=== PATIENT | female | born 1985 | race Caucasian/White ===

== ENCOUNTER → 2020-08-23 14:55 | Outpatient (BNVA) | payer OTHER, SELFPAY | PROVIDERS: PCP Physician Assistant; Visit Provider Surgery Vascular Surgery | DX: I65.22 Occlusion and stenosis of left carotid artery (principal) | CPT/HCPCS: 99202 ==

== ENCOUNTER 2020-09-06 12:05 | Outpatient (REF) | payer OTHER, SELFPAY ==
--- NOTE | ~2020-09-06 | US_ITS ---
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 COMPARISON: None TECHNIQUE: Real-time ultrasound and Doppler techniques (integrating B-mode 2-D vascular images, Doppler spectral analysis and color-flow Doppler imaging) were utilized to interrogate the extracranial carotid arteries, the vertebral arteries and proximal subclavian arteries bilaterally. The degree of stenosis is determined by criteria similar to NASCET. FINDINGS: Right Side: 1. There is no atherosclerotic plaque seen in the bifurcation/proximal ICA region. 2. The common carotid artery PSV proximally is 124 cm/s and distally 80 cm/s. 3. The proximal internal carotid artery velocities are 75 cm/s systolic and 81 cm/s diastolic. 4. The proximal external carotid artery PSV is 106 cm/s. 5. The vertebral artery shows antegrade flow. 6. The subclavian artery waveforms are normal. Left Side: 1. There is no atherosclerotic plaque seen in the bifurcation/proximal ICA region. 2. The common carotid artery PSV proximally is 125 cm/s and distally 89 cm/s. 3. The proximal internal carotid artery velocities are 102 cm/s systolic and 83 cm/s diastolic. 4. The proximal external carotid artery PSV is 92 cm/s. 5. The vertebral artery shows antegrade flow. 6. The subclavian artery waveforms are normal. US/US carotid duplex BI IMPRESSION: 1. RIGHT: Normal right internal carotid artery without atherosclerotic plaque or hemodynamically significant stenosis. 2. LEFT: Normal left internal carotid artery without atherosclerotic plaque or hemodynamically significant stenosis.
--- NOTE | ~2020-09-06 | US_ITS ---
EXAMINATION: US THYROID CLINICAL INFORMATION: Hypothyroidism. COMPARISON: Ultrasound thyroid soft tissues 05/02/2010. TECHNIQUE: Linear transducer grayscale and color Doppler examination with attention to the region of the thyroid. FINDINGS: SIZE: Measurements of the thyroid lobes and nodules are given in sagittal, anteroposterior and transverse dimensions respectively. Right Thyroid Lobe: 3.7 x 1.8 x 1.8 cm, volume 6.3 mL. Previously 3.9 x 2.3 x 1.5 cm, volume 7.0 mL. Parenchyma: The gland echotexture is heterogeneous. Thyroid vascularity is normal. Left Thyroid Lobe: 5.0 x 2.1 x 2.1 cm, volume 11.5 mL. Previously 4.6 x 2.3 x 1.8 cm, volume 10.0 mL. Parenchyma: The gland echotexture is heterogeneous. Thyroid vascularity is normal. Isthmus: 0.5 cm in maximum AP dimension. Previously 0.6 cm. NODES: No lymphadenopathy is seen in the tissue surrounding the thyroid gland. US/US thyroid IMPRESSION: Diffusely heterogeneous thyroid texture which might be a sequela of prior thyroiditis. No ultrasound evidence of focal thyroid nodule.. ACR TI-RADS RECOMMENDATIONS: Ultrasound-guided fine-needle aspiration, followup ultrasound, no further follow up. * TR1 (0 point) and TR 2 (2 points): No FNA or follow up * TR3 (3 points): FNA if more than or equal to 2.5 cm in maximum dimension, follow up in 1, 3 and 5 years if 1.5 to 2.4 cm in maximum dimension. * TR4 (4-6 points): FNA if more than or equal to 1.5 cm in maximum dimension, follow up in 1, 2, 3 and 5 years if 1 to 1.4 cm in maximum dimension. * TR5 (more than or equal to 7 points): FNA if more than or equal to 1 cm in maximum dimension, follow up every year for 5 years if 0.5 to 0.9 cm in maximum dimension. * TR3, TR4 or TR5 nodules that are below the size threshold for follow up receive no follow up.
== END 2020-09-06 12:06 | disposition home or self-care (01) ==
LOC: HO.US 12:05
PROVIDERS: Visit Provider Physician Assistant
DX: I65.22 Occlusion and stenosis of left carotid artery (principal); R09.89 Other specified symptoms and signs involving the circulatory and respiratory systems; E01.0 Iodine-deficiency related diffuse (endemic) goiter
CPT/HCPCS: 76536; 93880

== ENCOUNTER → 2020-09-08 15:16 | Outpatient (BNVA) | payer OTHER, SELFPAY | PROVIDERS: PCP Internal Medicine; Visit Provider Surgery Vascular Surgery ==

== ENCOUNTER 2020-09-14 10:21 | Outpatient (REF) | payer OTHER, SELFPAY ==
[2020-09-14 11:20] LABS: Hematocrit 31.2 % (37-47); Hemoglobin 9.2 g/dl (12.0-16.0); Mean Corpuscular HGB Conc 29.5 g/dl (31.0-35.0); Mean Corpuscular Hemoglobin 22.7 pg (27.0-33.0); Mean Platelet Volume 10.5 fL (9.4-12.3); Platelet Count 415 X10*3/uL (160-400); Red Blood Count 4.05 X10*6/uL (4.20-5.50); White Blood Count 11.2 X10*3/uL (4.8-10.8)
[2020-09-14 11:30] LABS: Alanine Aminotransferase 46 U/L (0-31); Albumin Level 4.2 g/dL (3.5-5.0); Alkaline Phosphatase 79 U/L (39-117); Anion Gap 11 (12-20); Aspartate Amino Transferase 23 U/L (5-31); Bilirubin Total 0.5 mg/dL (0.0-1.0); Blood Urea Nitrogen 12 mg/dL (9-16); Calcium 9.3 mg/dL (8.4-10.2); Carbon Dioxide 27 mmol/L (22-29); Chloride 102 mmol/L (96-108); Cholesterol 109 mg/dL; Estimated Glomerular Filt Rate > 60; Glucose Fasting 110 mg/dL (60-99); HDL Cholesterol 33 mg/dL; LDL Cholesterol Calculated 59 mg/dl; Potassium 4.6 mmol/L (3.3-5.1); Sodium 135 mmol/L (135-145); Total Protein 7.4 g/dL (6.5-8.0); Triglycerides 89 mg/dL
[2020-09-14 11:43] LABS: TSH reflex Free T4 1.04 uIU/mL (0.32-4.0)
[2020-09-14 12:18] LABS: Estimated Average Glucose 120 mg/dL; Hemoglobin A1c % 5.8 %
== END 2020-09-14 10:22 | disposition home or self-care (01) ==
LOC: HO.LAB 10:21
PROVIDERS: PCP Physician Assistant; Visit Provider Physician Assistant
DX: E03.9 Hypothyroidism, unspecified (principal); I10 Essential (primary) hypertension; E66.01 Morbid (severe) obesity due to excess calories; Z68.41 Body mass index [BMI] 40.0-44.9, adult
CPT/HCPCS: 36415; 80053; 80061; 83036; 84443; 85027

== ENCOUNTER 2020-09-21 15:29 | Outpatient (REF) | payer OTHER, SELFPAY ==
[2020-09-21 16:22] LABS: Immature Retic Fraction 20.9 % (3.0-15.9); Retic HGB Equivalent 21.3 pg (30.0-35.0); Reticulocyte Percent 1.9 % (0.5-1.8); Reticulocytes Absolute 0.073 X10*6/uL (0.026-0.095)
[2020-09-21 16:49] LABS: Iron 19 mcg/dL (30-160); Lactate Dehydrogenase 159 U/L (122-220); Percent Iron Saturation 6 % (15-50); Total Iron Binding Capacity 321 mcg/dL (228-428); Unsaturated Iron Binding 302 ug/dL
[2020-09-21 17:11] LABS: Ferritin 19 ng/mL (10-122)
== END 2020-09-21 15:30 | disposition home or self-care (01) ==
LOC: HO.LAB 15:29
PROVIDERS: PCP Physician Assistant; Visit Provider Physician Assistant
DX: D50.9 Iron deficiency anemia, unspecified (principal)
CPT/HCPCS: 36415; 82728; 83540; 83615; 85045

== ENCOUNTER 2021-03-23 15:22 | Emergency (ER) | payer OTHER, MEDICAID, SELFPAY ==
--- NOTE | 2021-03-23 | ECG_ITS ---
Test Reason : CHEST PAIN Blood Pressure : / mmHG Vent. Rate : 070 BPM Atrial Rate : 070 BPM P-R Int : 148 ms QRS Dur : 084 ms QT Int : 388 ms P-R-T Axes : 030 023 010 degrees QTc Int : 419 ms Normal sinus rhythm with sinus arrhythmia Cannot rule out Anterior infarct (cited on or before 23-MAR-2021) Abnormal ECG When compared with ECG of 24-OCT-2016 18:50, Nonspecific T wave abnormality, improved in Lateral leads Referred By: Generic ED Physician Electronically Signed By:ALEX LEVIN
--- NOTE | ~2021-03-23 | XR_ITS ---
EXAMINATION: XR CHEST CLINICAL INFORMATION: Chest pain COMPARISON: Previous chest x-ray September 2016 TECHNIQUE: 2 views of the chest were obtained. FINDINGS: No significant abnormality is noted involving the heart, lungs, mediastinum, bony thorax or soft tissues. XR/XR chest 2V IMPRESSION: Unremarkable examination.
[2021-03-23 15:36] VITALS: BP 111/54; PULSE 73; RESP 16; TEMP 37.2; O2SAT 98; BMI 36.7
--- NOTE | 2021-03-23 17:37 | ED_ITS ---
HPI - Chest Pain General Chief Complaint: Chest Pain Stated Complaint: chest pain Time Seen by Provider: 03/23/21 17:30 Source: patient Mode of arrival: ambulatory History of Present Illness HPI narrative: 35-year-old female with no significant past medical history presenting to the ED complaining of substernal chest pain described as sharp, intermittent x3 days with associated tingling down LUE. Denies fever, chills, cough, LE edema, recent travel, sick contacts, SOB MD complaint: chest pain Related Data Home Medications Medication Instructions Recorded Confirmed aspirin 81 mg tablet,delayed 81 mg PO DAILY 09/07/20 12/23/20 release (Adult Low Dose Aspirin) Previous Rx's Medication Instructions Recorded simvastatin 10 mg tablet 10 mg PO DAILY 90 Days #90 tab 08/10/20 omeprazole 20 mg capsule,delayed 20 mg PO DAILY #30 cap 11/19/20 release doxycycline hyclate 100 mg tablet 100 mg PO BID #14 tab 12/23/20 ferrous sulfate 325 mg (65 mg 325 mg PO DAILY #30 tab 02/23/21 iron) tablet levothyroxine 175 mcg tablet 175 mcg PO DAILY #30 tab 02/23/21 Allergies Allergy/AdvReac Type Severity Reaction Status Date / Time oxycodone [OxyContin] AdvReac Unknown itchiness Verified 12/23/20 12:02 Review of Systems Review of Systems: Constitutional: No Fever, No Chills, No Fatigue, No Malaise ENT/Mouth: No Ear Pain, No Nasal Congestion, No sore throat Eyes: No Eye Pain, No Swelling, No Vision Changes Cardiovascular: + Chest Pain, No SOB, No Dyspnea on Exertion, No Edema, No Palpitations Respiratory: No Cough, No Dyspnea Gastrointestinal: No Nausea, No Vomiting, No Diarrhea, No Constipation, No Abdominal pain Genitourinary: No Dysuria, No Urinary Frequency, No Hematuria Musculoskeletal: No joint pain, No Myalgias, No Joint Swelling Skin: No Skin Lesions, No rash Neuro: No Weakness, No Numbness, + Paresthesias,No Dizziness, No Headache Yes all other systems are reviewed and are negative [facility] Past Medical History Attestation statement: The following information was validated with the patient. Surgical History History of appendectomy S/P LASIK surgery Family History Family History Father Medical history unknown Mother Hypertension Hyperlipidemia Thyroid disease Sister Hypothyroid Family/Other Diabetes Social History Social History Advance Directives: No Advance Directives Information Provided: No Physical Exam Vital Signs: Vital Signs: Last Vital Signs Temp 99 F 03/23/21 15:36 Pulse 73 03/23/21 15:36 Resp 16 03/23/21 15:36 BP 111/54 L 03/23/21 15:36 Pulse Ox 98 03/23/21 15:36 Body Mass Index 36.7 Const: General: cooperative, healthy appearing and no acute distress Orientation/consciousness: patient oriented x3 Limitations: no limitations HENMT: Head: Yes normal to inspection Ears: hearing grossly normal bilaterally General nose exam: Normal external nose present Face and sinus: Yes normal facial exam Eyes: General: appearance normal, both eyes and all related structures EOM: EOMs intact bilaterally Neck: Neck: Yes normal visual inspection Chest: Other: Tenderness to palpation of chest wall reproducing subjective complaint Chest palpation & inspection: normal inspection of the chest, no crepitus and tenderness Resp: Effort & Inspection: normal respiratory effort Auscultation: clear to auscultation bilaterally, no rales, no rhonchi and no wheezes Cardio: Rate: regular rate Heart sounds: S1 normal heart sound present and S2 normal heart sound present GI: Inspection: Yes normal to inspection Palpation (GI): Soft to palpation, nontender, no guarding and not rigid Skin: Rashes: no rashes Wounds: no wounds Neuro: General: patient oriented x3 Gait exam (Neuro): Normal gait present Extrem: General: Yes normal to inspection, Yes no pedal edema and Yes no calf tenderness Course Course Course Narrative: -mild leukocytosis of 13.2. H&H at patient's baseline, labs otherwise unremarkable including troponin XR chest 2V IMPRESSION: Unremarkable examination. > results discussed with patient including worrisome signs and symptoms and strict return precautions. She verbalized understanding feel safe for discharge home MDM - Chest Pain MDM Narrative Medical decision making narrative: 35-year-old female with no significant past medical history presenting to the ED complaining of substernal chest pain described as sharp, intermittent x3 days with associated tingling down LUE. On exam VSS, NAD/well-appearing, physical exam as above, chest pain reproducible on exam. Rule out ACS although symptoms atypical. Low concern for PE/CHF. Rule out pneumonia. Plan: EKG, labs, CXR, COVID-19 testing, reassess Medical Records Data Attestation: I reviewed the patient's medical records. Lab Data Attestation: I reviewed the patient's lab results. Result diagrams: 03/23/21 18:21 03/23/21 18:21 Labs: Lab Results 03/23/21 03/23/21 03/23/21 Range/Units 18:21 18:21 18:21 WBC 13.2 H (4.8-10.8) X10*3/uL RBC 4.07 L (4.20-5.50) X10*6/uL Hgb 10.8 L (12.0-16.0) g/dl Hct 33.7 L (37-47) % MCV 82.8 (80-98) fL MCH 26.5 L (27.0-33.0) pg MCHC 32.0 (31.0-35.0) g/dl RDW 16.1 H (11.0-16.0) % Plt Count 355 (160-400) X10*3/uL MPV 11.1 (9.4-12.3) fL Immature Gran % (Auto) 0.3 (0.0-0.4) % Neut % (Auto) 70.9 (45-73) % Lymph % (Auto) 21.7 (20-40) % [place] % (Auto) 5.4 (2-11) % Eos % (Auto) 1.3 (0-4) % Baso % (Auto) 0.4 (0-2) % Lymph # (Auto) 2.9 (1.2-4.9) X10*3/uL [place] # (Auto) 0.7 (0.1-1.2) X10*3/uL Eos # (Auto) 0.2 (0.0-0.4) X10*3/uL Baso # (Auto) 0.1 (0.0-0.2) X10*3/uL Abs Immat Gran (auto) 0.04 H (0.00-0.03) X10*3/uL Absolute Neuts (auto) 9.4 H (2.0-8.3) X10*3/uL Absolute Nucleated RBC 0.000 (0.0-0.012) X10*3/uL Nucleated RBC % (auto) 0.0 (0.0-0.2) /100WBC Sodium 137 (135-145) mmol/L Potassium 4.4 (3.3-5.1) mmol/L Chloride 105 (96-108) mmol/L Carbon Dioxide 25 (22-29) mmol/L Anion Gap 11 L (12-20) BUN 13 (9-16) mg/dL Creatinine 0.86 (0.5-1.4) mg/dL Estim Creat Clear Calc 95.9 Estimated GFR > 60 Random Glucose 104 (60-115) mg/dL Calcium 9.5 (8.4-10.2) mg/dL Magnesium 2.1 (1.6-2.6) mg/dL Total Bilirubin 0.2 (0.0-1.0) mg/dL Direct Bilirubin < 0.2 (0.0-0.5) mg/dL AST 18 (5-31) U/L ALT 28 (0-31) U/L Alkaline Phosphatase 92 (39-117) U/L Troponin I High Sens 3.5 (<3.5-17.0) ng/L Total Protein 7.7 (6.5-8.0) g/dL Albumin 4.3 (3.5-5.0) g/dL Lipase 11 (8-78) U/L COVID-19 ([facility]) (Negative) COVID-19 Clin Com 03/23/21 Range/Units 18:21 WBC (4.8-10.8) X10*3/uL RBC (4.20-5.50) X10*6/uL Hgb (12.0-16.0) g/dl Hct (37-47) % MCV (80-98) fL MCH (27.0-33.0) pg MCHC (31.0-35.0) g/dl RDW (11.0-16.0) % Plt Count (160-400) X10*3/uL MPV (9.4-12.3) fL Immature Gran % (Auto) (0.0-0.4) % Neut % (Auto) (45-73) % Lymph % (Auto) (20-40) % [place] % (Auto) (2-11) % Eos % (Auto) (0-4) % Baso % (Auto) (0-2) % Lymph # (Auto) (1.2-4.9) X10*3/uL [place] # (Auto) (0.1-1.2) X10*3/uL Eos # (Auto) (0.0-0.4) X10*3/uL Baso # (Auto) (0.0-0.2) X10*3/uL Abs Immat Gran (auto) (0.00-0.03) X10*3/uL Absolute Neuts (auto) (2.0-8.3) X10*3/uL Absolute Nucleated RBC (0.0-0.012) X10*3/uL Nucleated RBC % (auto) (0.0-0.2) /100WBC Sodium (135-145) mmol/L Potassium (3.3-5.1) mmol/L Chloride (96-108) mmol/L Carbon Dioxide (22-29) mmol/L Anion Gap (12-20) BUN (9-16) mg/dL Creatinine (0.5-1.4) mg/dL Estim Creat Clear Calc Estimated GFR Random Glucose (60-115) mg/dL Calcium (8.4-10.2) mg/dL Magnesium (1.6-2.6) mg/dL Total Bilirubin (0.0-1.0) mg/dL Direct Bilirubin (0.0-0.5) mg/dL AST (5-31) U/L ALT (0-31) U/L Alkaline Phosphatase (39-117) U/L Troponin I High Sens (<3.5-17.0) ng/L Total Protein (6.5-8.0) g/dL Albumin (3.5-5.0) g/dL Lipase (8-78) U/L COVID-19 ([facility]) Negative (Negative) COVID-19 Clin Com See Note ECG Data ECG #1: Interpretation: EKG normal sinus rhythm with a rate of 70. Nonischemic/no STEMI Discharge Plan Discharge Clinical Impression: Atypical chest pain Patient Disposition: Home, Self-Care Instructions: Chest Pain (ED) Additional Instructions: Your blood work and chest x-ray reviewed showing Follow-up with her primary care doctor and Cardiology as needed If her symptoms persist or worsen, become more constant or unbearable please return to the ED Prescriptions: No Action omeprazole 20 mg capsule,delayed release(DR/EC) 20 mg PO DAILY Qty: 30 RF: 2 ferrous sulfate 325 mg (65 mg iron) tablet 325 mg PO DAILY Qty: 30 RF: 1 levothyroxine 175 mcg tablet 175 mcg PO DAILY Qty: 30 RF: 3 doxycycline hyclate 100 mg tablet 100 mg PO BID Qty: 14 RF: 0 simvastatin 10 mg tablet 10 mg PO DAILY 90 Days Qty: 90 RF: 0 aspirin [Adult Low Dose Aspirin] 81 mg tablet,delayed release (DR/EC) 81 mg PO DAILY RF: 0 Referrals: Adiel Villanueva PA-C [Primary Care Provider] - 2 days Daniel Pugh MD [Physician] - 1 week
[2021-03-23] MEDS: 0.9 % Sodium Chloride 1,000 ML 999 ML IVCONT (18:23)
[2021-03-23 18:32] LABS: MANUAL DIFF FLAG NO
[2021-03-23 18:36] LABS: Basophils Absolute Auto 0.1 X10*3/uL (0.0-0.2); Basophils Percent Auto 0.4 % (0-2); Eosinophils Absolute Auto 0.2 X10*3/uL (0.0-0.4); Eosinophils Percent Auto 1.3 % (0-4); Hematocrit 33.7 % (37-47); Hemoglobin 10.8 g/dl (12.0-16.0); Imm Gran Abs Auto 0.04 X10*3/uL (0.00-0.03); Imm Gran Pct Auto 0.3 % (0.0-0.4); Lymphocytes Absolute Auto 2.9 X10*3/uL (1.2-4.9); Lymphocytes Percent Auto 21.7 % (20-40); Mean Corpuscular Hemoglobin 26.5 pg (27.0-33.0); Mean Corpuscular Volume 82.8 fL (80-98); Mean Platelet Volume 11.1 fL (9.4-12.3); Monocytes Absolute Auto 0.7 X10*3/uL (0.1-1.2); Monocytes Percent Auto 5.4 % (2-11); Neutrophils Absolute Auto 9.4 X10*3/uL (2.0-8.3); Neutrophils Percent Auto 70.9 % (45-73); Platelet Count 355 X10*3/uL (160-400); Red Blood Count 4.07 X10*6/uL (4.20-5.50); Red Cell Distribution Width 16.1 % (11.0-16.0); White Blood Count 13.2 X10*3/uL (4.8-10.8)
[2021-03-23 18:52] LABS: COVID-19 Test Negative (Negative)
[2021-03-23 19:03] LABS: Alanine Aminotransferase 28 U/L (0-31); Albumin Level 4.3 g/dL (3.5-5.0); Alkaline Phosphatase 92 U/L (39-117); Anion Gap 11 (12-20); Aspartate Amino Transferase 18 U/L (5-31); Bilirubin Direct < 0.2 mg/dL (0.0-0.5); Bilirubin Total 0.2 mg/dL (0.0-1.0); Blood Urea Nitrogen 13 mg/dL (9-16); Calcium 9.5 mg/dL (8.4-10.2); Carbon Dioxide 25 mmol/L (22-29); Chloride 105 mmol/L (96-108); Creatinine Clr Calc Pharmacy 95.9; Estimated Glomerular Filt Rate > 60; Glucose Random 104 mg/dL (60-115); Lipase 11 U/L (8-78); Magnesium 2.1 mg/dL (1.6-2.6); Potassium 4.4 mmol/L (3.3-5.1); Sodium 137 mmol/L (135-145); Total Protein 7.7 g/dL (6.5-8.0)
[2021-03-23 19:06] LABS: Troponin-I High Sensitivity 3.5 ng/L (<3.5-17.0)
--- NOTE | 2021-03-23 19:51 | PC.NURSE ---
REPORT TAKEN FROM MAURIZIO RN, FIRST CONTACT WITH PT. SITTING UP IN BED SKIN PWD RESPIRATIONS EVEN UNLABORED. OFFERS NO COMPLAINTS AT THIS TIME. AWAITING RESULTS AND REEVAL. AWARE OF PLAN OF CARE.
[2021-03-23] MEDS: Magnesium Hydrox/Alum Hydrox 30 ML ORAL.SUSP PO (20:03)
[2021-03-23] MEDS: Ketorolac Tromethamine 15 MG/ML VIAL IVPUSH (20:03)
[2021-03-23] MEDS: Famotidine/PF 20 MG/2 ML VIAL IVPUSH (20:04)
[2021-03-23 20:06] VITALS: BP 97/52; PULSE 65; RESP 16; TEMP 37.1; O2SAT 97
[2021-03-23 20:11] VITALS: BP 115/62; PULSE 67; O2SAT 98
== END 2021-03-23 20:23 | disposition home or self-care (01) ==
PROVIDERS: Physician Assistant; Emergency Provider Emergency Medicine; PCP Physician Assistant
DX: R07.89 Other chest pain (principal); Z20.822 Contact with and (suspected) exposure to COVID-19; F17.210 Nicotine dependence, cigarettes, uncomplicated; Z79.82 Long term (current) use of aspirin
CPT/HCPCS: 36415; 71046; 80048; 80076; 83690; 83735; 84484; 85025; 87635; 93005; 96361; 96374; 96375; 99284; 99285; J1885

== ENCOUNTER 2021-04-07 17:54 | Outpatient (REF) | payer OTHER, MEDICAID, SELFPAY | END 2021-04-07 17:55 | disposition home or self-care (01) | LOC: HO.LNP 17:54 | PROVIDERS: Visit Provider Hospitalist | DX: R30.0 Dysuria (principal) | CPT/HCPCS: 87086 ==

== ENCOUNTER 2021-04-10 14:47 | Outpatient (REF) | payer OTHER, MEDICAID, SELFPAY ==
[2021-04-10 15:34] LABS: Appearance Urine CLEAR; Color Urine YELLOW; Glucose Urine UA NEG (NEG); Leukocyte Esterase Urine NEG (NEG); Nitrite Urine NEG (NEG); Specific Gravity - Urine >= 1.030 (1.005-1.025); Urine Blood NEG (NEG); Urine Ketones NEG (NEG); Urine Protein NEG (NEG-TRACE)
[2021-04-10 15:36] LABS: Hematocrit 34.7 % (37-47); Hemoglobin 11.2 g/dl (12.0-16.0); Mean Corpuscular HGB Conc 32.3 g/dl (31.0-35.0); Mean Corpuscular Hemoglobin 26.5 pg (27.0-33.0); Mean Platelet Volume 11.2 fL (9.4-12.3); Platelet Count 439 X10*3/uL (160-400); Red Blood Count 4.23 X10*6/uL (4.20-5.50); Red Cell Distribution Width 16.1 % (11.0-16.0); White Blood Count 23.5 X10*3/uL (4.8-10.8)
[2021-04-10 15:37] LABS: Estimated Average Glucose 114 mg/dL; Hemoglobin A1c % 5.6 %
== END 2021-04-10 14:48 | disposition home or self-care (01) ==
LOC: HO.LAB 14:47
PROVIDERS: PCP Physician Assistant; Visit Provider Hospitalist
DX: Z13.220 Encounter for screening for lipoid disorders (principal); E66.01 Morbid (severe) obesity due to excess calories; Z68.41 Body mass index [BMI] 40.0-44.9, adult; I10 Essential (primary) hypertension; R30.0 Dysuria
CPT/HCPCS: 36415; 81003; 83036; 85027

== ENCOUNTER 2021-04-14 09:35 | Outpatient (REF) | payer OTHER, MEDICAID, SELFPAY ==
[2021-04-14 10:42] LABS: Hematocrit 35.7 % (37-47); Hemoglobin 11.3 g/dl (12.0-16.0); Mean Corpuscular HGB Conc 31.7 g/dl (31.0-35.0); Mean Corpuscular Hemoglobin 26.2 pg (27.0-33.0); Mean Corpuscular Volume 82.6 fL (80-98); Mean Platelet Volume 11.2 fL (9.4-12.3); Platelet Count 328 X10*3/uL (160-400); Red Blood Count 4.32 X10*6/uL (4.20-5.50); Red Cell Distribution Width 15.9 % (11.0-16.0); White Blood Count 16.4 X10*3/uL (4.8-10.8)
[2021-04-14 11:12] LABS: Alanine Aminotransferase 18 U/L (0-31); Albumin Level 3.8 g/dL (3.5-5.0); Alkaline Phosphatase 73 U/L (39-117); Anion Gap 12 (12-20); Aspartate Amino Transferase 11 U/L (5-31); Bilirubin Total 0.6 mg/dL (0.0-1.0); Blood Urea Nitrogen 15 mg/dL (9-16); Calcium 8.9 mg/dL (8.4-10.2); Carbon Dioxide 26 mmol/L (22-29); Chloride 101 mmol/L (96-108); Cholesterol 150 mg/dL; Estimated Glomerular Filt Rate > 60; Glucose Fasting 92 mg/dL (60-99); HDL Cholesterol 45 mg/dL; LDL Cholesterol Calculated 82 mg/dl; Potassium 3.9 mmol/L (3.3-5.1); Sodium 135 mmol/L (135-145); Total Protein 6.5 g/dL (6.5-8.0); Triglycerides 118 mg/dL
[2021-04-14 11:35] LABS: TSH reflex Free T4 8.24 uIU/mL (0.32-4.0)
[2021-04-14 12:15] LABS: Free T4 (Free Thyroxine) 0.93 ng/dL (0.71-1.85)
== END 2021-04-14 09:36 | disposition home or self-care (01) ==
LOC: HO.LAB 09:35
PROVIDERS: PCP Physician Assistant; Visit Provider Physician Assistant
DX: Z13.220 Encounter for screening for lipoid disorders (principal); E03.9 Hypothyroidism, unspecified; E66.01 Morbid (severe) obesity due to excess calories; Z68.41 Body mass index [BMI] 40.0-44.9, adult; D72.829 Elevated white blood cell count, unspecified; I10 Essential (primary) hypertension
CPT/HCPCS: 36415; 80053; 80061; 84439; 84443; 85027

== ENCOUNTER 2021-05-05 11:39 | Outpatient (REF) | payer OTHER, MEDICAID, SELFPAY ==
[2021-05-05 13:07] LABS: Hematocrit 34.4 % (37-47); Hemoglobin 10.9 g/dl (12.0-16.0); Mean Corpuscular HGB Conc 31.7 g/dl (31.0-35.0); Mean Corpuscular Hemoglobin 26.4 pg (27.0-33.0); Mean Corpuscular Volume 83.3 fL (80-98); Mean Platelet Volume 10.9 fL (9.4-12.3); Platelet Count 404 X10*3/uL (160-400); Red Blood Count 4.13 X10*6/uL (4.20-5.50); Red Cell Distribution Width 14.7 % (11.0-16.0); White Blood Count 9.8 X10*3/uL (4.8-10.8)
== END 2021-05-05 11:40 | disposition home or self-care (01) ==
LOC: HO.LAB 11:39
PROVIDERS: PCP Physician Assistant; Visit Provider Physician Assistant
DX: D72.829 Elevated white blood cell count, unspecified (principal); I10 Essential (primary) hypertension
CPT/HCPCS: 36415; 85027

== ENCOUNTER → 2021-08-01 15:09 | Outpatient (BNVA) | payer OTHER, MEDICAID, SELFPAY | PROVIDERS: PCP Physician Assistant; Referring Provider Physician Assistant; Visit Provider Nurse Practitioner Family ==

== ENCOUNTER 2021-08-01 16:13 | Outpatient (REF) | payer OTHER, MEDICAID, SELFPAY ==
[2021-08-01 17:58] LABS: TSH reflex Free T4 0.38 uIU/mL (0.32-4.0)
[2021-08-01 18:15] LABS: Folate 12.7 ng/mL (> or = 4.0); Vitamin B12 621 pg/mL (200-900)
[2021-08-03 06:42] LABS: Transglutaminase Ab IgG <1.0 U/mL; Transglutaminase IgA 1.8 U/mL
[2021-08-05 12:46] LABS: Vitamin D 25-OH, D2 <4 ng/mL; Vitamin D 25-OH, D3 14 ng/mL; Vitamin D 25-OH, Total 14 ng/mL (30-100)
== END 2021-08-01 16:14 | disposition home or self-care (01) ==
LOC: HO.LAB 16:13
PROVIDERS: PCP Physician Assistant; Visit Provider Nurse Practitioner Family
DX: K21.9 Gastro-esophageal reflux disease without esophagitis (principal); R14.0 Abdominal distension (gaseous); E55.9 Vitamin D deficiency, unspecified; R19.7 Diarrhea, unspecified; R10.11 Right upper quadrant pain; Z12.11 Encounter for screening for malignant neoplasm of colon
CPT/HCPCS: 36415; 82306; 82607; 82746; 84443; 86364

== ENCOUNTER 2021-09-04 14:19 | Outpatient (REF) | payer OTHER, MEDICAID, SELFPAY | END 2021-09-04 14:20 | disposition home or self-care (01) | LOC: HO.LNP 14:19 | PROVIDERS: Visit Provider Nurse Practitioner Family | DX: K21.9 Gastro-esophageal reflux disease without esophagitis (principal) | CPT/HCPCS: 87338 ==

== ENCOUNTER → 2021-09-05 15:31 | Outpatient (BNVA) | payer OTHER, MEDICAID, SELFPAY | PROVIDERS: PCP Physician Assistant; Referring Provider Physician Assistant; Visit Provider Nurse Practitioner Family ==

== ENCOUNTER 2021-09-29 09:54 | Emergency (ER) | payer OTHER, MEDICAID, SELFPAY ==
[2021-09-29] VITALS (8 sets, daily range): BP systolic 88–125; BP diastolic 39–86; PULSE 50–83; RESP 14–18; TEMP 36.5–37.1; O2SAT 94–100; BMI 35.1
--- NOTE | ~2021-09-29 | CT_ITS ---
EXAMINATION: CT HEAD WITHOUT CONTRAST CLINICAL INFORMATION: Dizziness. Feels like in a dream state COMPARISON: None TECHNIQUE: Contiguous axial imaging was performed from the skull base to vertex without intravenous administration of contrast. This CT examination was performed using dose optimization techniques as appropriate, variously including the following: *Automated exposure control *Adjustment of mA and/or kV according to patient size (this includes techniques or standardized protocols for targeted exams where dose is matched to indication/reason for exam; i.e. extremities or head) *Use of iterative reconstruction technique DLP: 657 mGy-cm FINDINGS: There is no evidence of acute intracranial hemorrhage or territorial infarction. No abnormal mass effect or midline shift is seen. Gandhi to white matter differentiation is well preserved. No extra-axial fluid collections are identified. The ventricles are normal in size. There is no abnormal attenuation within the brain parenchyma. The osseous structures and soft tissues are normal. The mastoid air cells and visualized portions of the paranasal sinuses are well aerated. CT/CT head/brain wo con IMPRESSION: No acute intracranial pathology.
--- NOTE | 2021-09-29 10:04 | ECG_ITS ---
Test Reason : DIZZINESS Blood Pressure : / mmHG Vent. Rate : 058 BPM Atrial Rate : 058 BPM P-R Int : 156 ms QRS Dur : 084 ms QT Int : 432 ms P-R-T Axes : 032 013 009 degrees QTc Int : 424 ms Sinus bradycardia Cannot rule out Anterior infarct (cited on or before 23-MAR-2021) Abnormal ECG When compared with ECG of 23-MAR-2021 15:32, No significant change was found Referred By: Generic ED Physician Electronically Signed By:Daniel Pugh
[2021-09-29 10:37] LABS: Glucose, Whole Blood 80 mg/dL (60-115)
--- NOTE | 2021-09-29 10:44 | ED.DIZZY ---
HPI - Dizziness General Chief Complaint: Dizziness Stated Complaint: DIZZINESS Time Seen by Provider: 09/29/21 10:11 Source: patient Mode of arrival: ambulatory History of Present Illness HPI Narrative: 35-year-old female with no significant past medical history presenting to the ED complaining of dizziness described as feeling like she's in a dream and off balance beginning after 08:00AM while at work. Admits to similar symptoms in the past however resolved quickly and spontaneously. Reports difficulty ambulating from being off balance. Symptoms worse with position changes and head movement, relieved when lying still. Also reports left-sided earache on Saturday, improved present. Denies taking AC. Denies associated headache, vision change/loss, numbness/tingling, weakness, nausea/vomiting, CP/SOB MD elicited complaint: dizziness Related Data Home Medications Medication Instructions Recorded Confirmed aspirin 81 mg tablet,delayed 81 mg PO DAILY 09/07/20 12/23/20 release (Adult Low Dose Aspirin) Previous Rx's Medication Instructions Recorded simvastatin 10 mg tablet 10 mg PO DAILY 90 Days #90 tab 08/10/20 ferrous sulfate 325 mg (65 mg 325 mg PO DAILY #30 tab 02/23/21 iron) tablet aluminum-mag hydroxide-simethicone 5 ml PO 5XD PRN #30 ml 03/23/21 200 mg-200 mg-20 mg/5 mL oral susp (Maalox Advanced) levothyroxine 175 mcg tablet 175 mcg PO DAILY #90 tab 07/06/21 cholecalciferol (vitamin D3) 1,250 1,250 mcg PO QWEEK #13 cap 08/08/21 mcg (50,000 unit) capsule polyethylene glycol 3350 17 gram 17 g PO DAILY #30 ea 09/05/21 oral powder packet (Miralax) sennosides 8.6 mg tablet (Natural 8.6 mg PO BEDTIME #90 tab 09/05/21 Senna Laxative) simethicone 125 mg capsule (Gas 125 mg PO TID-QID PRN #120 cap 09/05/21 Relief (simethicone)) meclizine 25 mg tablet 25 mg PO TID PRN #14 tab 09/29/21 Allergies Allergy/AdvReac Type Severity Reaction Status Date / Time sulfamethoxazole Allergy Intermediate Rash all Verified 09/05/21 15:39 [From Bactrim] over body, swelling & redness in face trimethoprim [From Bactrim] Allergy Intermediate Rash all Verified 09/05/21 15:39 over body, swelling & redness in face prednisone AdvReac Intermediate night Verified 09/05/21 15:39 sweats oxycodone [OxyContin] AdvReac Unknown itchiness Verified 09/05/21 15:39 Review of Systems Review of Systems: Constitutional: No Fever, No Chills, No Fatigue, No Malaise ENT/Mouth: + Ear Pain (resolved), No Nasal Congestion, No sore throat, No Rhinorrhea, No Swallowing Difficulty Eyes: No Eye Pain, No Swelling, No Redness, No Discharge, Cardiovascular: No Chest Pain, No SOB, No Edema, No Palpitations Respiratory: No Cough, No Sputum, No Dyspnea Gastrointestinal: No Nausea, No Vomiting, No Diarrhea, No Abdominal pain Genitourinary: No Dysuria, No Urinary Frequency, No Urgency, No Flank Pain, No Urinary Flow Changes, No Hesitancy Musculoskeletal: No joint pain, No Myalgias, No Joint Swelling Skin: No Skin Lesions, No rash Neuro: No Weakness, No Numbness, No Paresthesias, No Loss of Consciousness, + Dizziness, No Headache Yes all other systems are reviewed and are negative [facility] Past Medical History Attestation statement: The following information was validated with the patient. Surgical History History of appendectomy S/P LASIK surgery Family History Family History Father Medical history unknown Mother Hypertension Hyperlipidemia Thyroid disease Sister Hypothyroid Family/Other Diabetes Social History Social History Alcohol intake: never Patient Tobacco Use Status: Never used Tobacco Use of substances other than those prescribed or required for medical reasons: No Advance Directives: No Advance Directives Information Provided: Yes Patient : No Physical Exam Vital Signs: Vital Signs: Last Vital Signs Temp 98.8 F 09/29/21 14:22 Pulse 58 09/29/21 14:22 Resp 18 09/29/21 14:22 BP 99/48 L 09/29/21 14:22 Pulse Ox 99 09/29/21 14:22 BMI result Body Mass Index 35.1 Const: General: cooperative, healthy appearing, no acute distress, alert and awake Orientation/consciousness: patient oriented x3 Limitations: no limitations HENMT: Head: Yes normal to inspection and Yes atraumatic Ears: hearing grossly normal bilaterally General nose exam: Normal external nose present Face and sinus: Yes normal facial exam Eyes: General: appearance normal, both eyes and all related structures Pupils: Equal, round and reactive pupils present EOM: EOMs intact bilaterally and Nystagmus present Neck: Neck: Yes normal visual inspection and Yes no meningeal signs Resp: Effort & Inspection: normal respiratory effort and no respiratory distress Auscultation: clear to auscultation bilaterally, no rales, no rhonchi and no wheezes Cardio: Rate: regular rate Heart sounds: S1 normal heart sound present and S2 normal heart sound present GI: Inspection: Yes normal to inspection Palpation (GI): Soft to palpation, nontender, no guarding and not rigid Skin: Rashes: no rashes Wounds: no wounds Neuro: Other: Gait unsteady, but not ataxic General: patient oriented x3, tone normal, moves all extremities, no meningeal signs, no focal motor deficits and CN's II-XI intact bilaterally Cranial nerves: Yes CN's II-XII intact bilaterally, Yes Equal, round and reactive pupils present, Yes Normal facial strength present, Yes Midline tongue present and Yes Nystagmus present horizontal fast component to the left Cognition (Neuro): normal cognition Gait exam (Neuro): not ataxic Motor exam (neuro): 5/5 motor strength present throughout, Pronator motor function not present and no tremor noted Coordination: [id number] test normal Romberg Test: Negative Extrem: General: Yes normal to inspection Course Course Course Narrative: -1212--no leukocytosis. H&H stable. Labs otherwise unremarkable. Troponin negative. -1241--orthostatic vital signs negative. On re-evaluation patient denies dizziness but still reports mildly feeling off balance. Ambulated to bathroom without assistance. Will give IV Ativan. Head CT still pending. CT head/brain wo con IMPRESSION: No acute intracranial pathology. -1550--on re-evaluation patient reports symptomatic improvement/resolution. Denies dizziness at present. Would like to go home. Ambulates with steady gait. Discussed worrisome signs and symptoms and strict return precautions and needed close follow-up with ENT. Patient verbalized understanding and feel safe for discharge home at this time MDM - Dizziness MDM Narrative Medical decision making narrative: 35-year-old female with no significant past medical history presenting to the ED complaining of dizziness described as feeling like she's in a dream and off balance beginning after 08:00AM while at work. On exam vital signs BP on lower side, NAD, no focal neuro deficits however ambulating off balance but not ataxic, horizontal nystagmus noted. Of note patient seen at [facility] for similar symptoms diagnosed with cervical stenosis, followed up with vascular surgery and had carotid ultrasound at our facility on 09/06/2020 which was unremarkable. Concern for BPPV/vertigo. Lower concern for SAH/carotid stenosis/CVA Plan: EKG, labs, UA, head CT, IVF, orthostatics, symptomatic treatment, re-evaluate Differential Diagnosis Differential diagnosis: Likely benign paroxysmal positional vertigo and orthostatic hypotension Medical Records Attestation: I reviewed the patient's medical records. Lab Data Attestation: I reviewed the patient's lab results. Result diagrams: 09/29/21 11:21 09/29/21 11:21 Labs: Lab Results 09/29/21 09/29/21 09/29/21 Range/Units 10:33 11:21 11:21 WBC 9.1 (4.8-10.8) X10*3/uL RBC 4.17 L (4.20-5.50) X10*6/uL Hgb 10.8 L (12.0-16.0) g/dl Hct 34.1 L (37.0-47.0) % MCV 81.8 (80.0-98.0) fL MCH 25.9 L (27.0-33.0) pg MCHC 31.7 (31.0-35.0) g/dl RDW 14.6 (11.0-16.0) % Plt Count 369 (160-400) X10*3/uL MPV 11.2 (9.4-12.3) fL Immature Gran % (Auto) 0.2 (0.0-0.4) % Neut % (Auto) 62.9 (45-73) % Lymph % (Auto) 29.1 (20-40) % [place] % (Auto) 5.8 (2-11) % Eos % (Auto) 1.6 (0-4) % Baso % (Auto) 0.4 (0-2) % Lymph # (Auto) 2.7 (1.2-4.9) X10*3/uL [place] # (Auto) 0.5 (0.1-1.2) X10*3/uL Eos # (Auto) 0.2 (0.0-0.4) X10*3/uL Baso # (Auto) 0.0 (0.0-0.2) X10*3/uL Abs Immat Gran (auto) 0.02 (0.00-0.03) X10*3/uL Absolute Neuts (auto) 5.7 (2.0-8.3) x10*3/uL Absolute Nucleated RBC 0.000 (0.0-0.012) X10*3/uL Nucleated RBC % (auto) 0.0 (0.0-0.2) /100WBC Sodium 134 L (135-145) mmol/L Potassium 4.5 (3.3-5.1) mmol/L Chloride 100 (96-108) mmol/L Carbon Dioxide 24 (22-29) mmol/L Anion Gap 15 (12-20) BUN 12 (9-16) mg/dL Creatinine 0.71 (0.5-1.4) mg/dL Estim Creat Clear Calc 113.2 Estimated GFR > 60 POC Glucose 80 (60-115) mg/dL Random Glucose 81 (60-115) mg/dL Calcium 9.6 D (8.4-10.2) mg/dL Magnesium 2.0 (1.6-2.6) mg/dL Total Bilirubin 0.4 (0.0-1.0) mg/dL Direct Bilirubin 0.2 (0.0-0.5) mg/dL AST 19 D (5-31) U/L ALT 18 (0-31) U/L Alkaline Phosphatase 89 D (39-117) U/L Troponin I High Sens (<3.5-17.0) ng/L Total Protein 7.4 (6.5-8.0) g/dL Albumin 4.1 (3.5-5.0) g/dL Urine Color Urine Appearance Urine pH (5.0-8.0) Ur Specific [place] (1.005-1.025) Urine Protein (NEG-TRACE) MG/DL Urine Glucose (UA) (NEG) MG/DL Urine Ketones (NEG) MG/DL Urine Blood (NEG) Urine Nitrite (NEG) Ur Leukocyte Esterase (NEG) Urine Test (NEGATIVE) Urine Opiates Screen (Not Detect) Urine Fentanyl Screen (Not Detect) Ur Barbiturates Screen (Not Detect) Ur Phencyclidine Scrn (Not Detect) Ur Amphetamines Screen (Not Detect) U Benzodiazepines Scrn (Not Detect) Urine Cocaine Screen (Not Detect) U Marijuana (THC) Screen (Not Detect) COVID-19 (ANNA MARIE) (Negative) COVID-19 Clin Com 09/29/21 09/29/21 09/29/21 Range/Units 11:21 11:23 12:57 WBC (4.8-10.8) X10*3/uL RBC (4.20-5.50) X10*6/uL Hgb (12.0-16.0) g/dl Hct (37.0-47.0) % MCV (80.0-98.0) fL MCH (27.0-33.0) pg MCHC (31.0-35.0) g/dl RDW (11.0-16.0) % Plt Count (160-400) X10*3/uL MPV (9.4-12.3) fL Immature Gran % (Auto) (0.0-0.4) % Neut % (Auto) (45-73) % Lymph % (Auto) (20-40) % [place] % (Auto) (2-11) % Eos % (Auto) (0-4) % Baso % (Auto) (0-2) % Lymph # (Auto) (1.2-4.9) X10*3/uL [place] # (Auto) (0.1-1.2) X10*3/uL Eos # (Auto) (0.0-0.4) X10*3/uL Baso # (Auto) (0.0-0.2) X10*3/uL Abs Immat Gran (auto) (0.00-0.03) X10*3/uL Absolute Neuts (auto) (2.0-8.3) x10*3/uL Absolute Nucleated RBC (0.0-0.012) X10*3/uL Nucleated RBC % (auto) (0.0-0.2) /100WBC Sodium (135-145) mmol/L Potassium (3.3-5.1) mmol/L Chloride (96-108) mmol/L Carbon Dioxide (22-29) mmol/L Anion Gap (12-20) BUN (9-16) mg/dL Creatinine (0.5-1.4) mg/dL Estim Creat Clear Calc Estimated GFR POC Glucose (60-115) mg/dL Random Glucose (60-115) mg/dL Calcium (8.4-10.2) mg/dL Magnesium (1.6-2.6) mg/dL Total Bilirubin (0.0-1.0) mg/dL Direct Bilirubin (0.0-0.5) mg/dL AST (5-31) U/L ALT (0-31) U/L Alkaline Phosphatase (39-117) U/L Troponin I High Sens 3.7 (<3.5-17.0) ng/L Total Protein (6.5-8.0) g/dL Albumin (3.5-5.0) g/dL Urine Color STRAW Urine Appearance CLEAR Urine pH 5.5 (5.0-8.0) Ur Specific [place] 1.025 (1.005-1.025) Urine Protein NEG (NEG-TRACE) MG/DL Urine Glucose (UA) NEG (NEG) MG/DL Urine Ketones 5 (NEG) MG/DL Urine Blood NEG (NEG) Urine Nitrite NEG (NEG) Ur Leukocyte Esterase NEG (NEG) Urine Test (NEGATIVE) Urine Opiates Screen (Not Detect) Urine Fentanyl Screen (Not Detect) Ur Barbiturates Screen (Not Detect) Ur Phencyclidine Scrn (Not Detect) Ur Amphetamines Screen (Not Detect) U Benzodiazepines Scrn (Not Detect) Urine Cocaine Screen (Not Detect) U Marijuana (THC) Screen (Not Detect) COVID-19 (ANNA MARIE) Negative (Negative) COVID-19 Clin Com See Note 09/29/21 09/29/21 Range/Units 12:57 12:58 WBC (4.8-10.8) X10*3/uL RBC (4.20-5.50) X10*6/uL Hgb (12.0-16.0) g/dl Hct (37.0-47.0) % MCV (80.0-98.0) fL MCH (27.0-33.0) pg MCHC (31.0-35.0) g/dl RDW (11.0-16.0) % Plt Count (160-400) X10*3/uL MPV (9.4-12.3) fL Immature Gran % (Auto) (0.0-0.4) % Neut % (Auto) (45-73) % Lymph % (Auto) (20-40) % [place] % (Auto) (2-11) % Eos % (Auto) (0-4) % Baso % (Auto) (0-2) % Lymph # (Auto) (1.2-4.9) X10*3/uL [place] # (Auto) (0.1-1.2) X10*3/uL Eos # (Auto) (0.0-0.4) X10*3/uL Baso # (Auto) (0.0-0.2) X10*3/uL Abs Immat Gran (auto) (0.00-0.03) X10*3/uL Absolute Neuts (auto) (2.0-8.3) x10*3/uL Absolute Nucleated RBC (0.0-0.012) X10*3/uL Nucleated RBC % (auto) (0.0-0.2) /100WBC Sodium (135-145) mmol/L Potassium (3.3-5.1) mmol/L Chloride (96-108) mmol/L Carbon Dioxide (22-29) mmol/L Anion Gap (12-20) BUN (9-16) mg/dL Creatinine (0.5-1.4) mg/dL Estim Creat Clear Calc Estimated GFR POC Glucose (60-115) mg/dL Random Glucose (60-115) mg/dL Calcium (8.4-10.2) mg/dL Magnesium (1.6-2.6) mg/dL Total Bilirubin (0.0-1.0) mg/dL Direct Bilirubin (0.0-0.5) mg/dL AST (5-31) U/L ALT (0-31) U/L Alkaline Phosphatase (39-117) U/L Troponin I High Sens (<3.5-17.0) ng/L Total Protein (6.5-8.0) g/dL Albumin (3.5-5.0) g/dL Urine Color Urine Appearance Urine pH (5.0-8.0) Ur Specific [place] (1.005-1.025) Urine Protein (NEG-TRACE) MG/DL Urine Glucose (UA) (NEG) MG/DL Urine Ketones (NEG) MG/DL Urine Blood (NEG) Urine Nitrite (NEG) Ur Leukocyte Esterase (NEG) Urine Test NEGATIVE (NEGATIVE) Urine Opiates Screen Not Detected (Not Detect) Urine Fentanyl Screen Not Detected (Not Detect) Ur Barbiturates Screen Not Detected (Not Detect) Ur Phencyclidine Scrn Not Detected (Not Detect) Ur Amphetamines Screen Not Detected (Not Detect) U Benzodiazepines Scrn Not Detected (Not Detect) Urine Cocaine Screen Not Detected (Not Detect) U Marijuana (THC) Screen Not Detected (Not Detect) COVID-19 (ANNA MARIE) (Negative) COVID-19 Clin Com Discharge Plan Discharge Clinical Impression: Dizziness Patient Disposition: Home, Self-Care Instructions: Dizziness (ED) Additional Instructions: Your blood work and head CT were reassuring today in the ED. You likely have vertigo. Meclizine will help with her dizziness. Take as needed. Please follow-up with the ENT specialist. If her symptoms persist or worsen, symptoms become unbearable, you are unable to walk, have headache, or weakness speech return to the ED immediately Prescriptions: New meclizine 25 mg tablet 25 mg PO TID PRN (Reason: dizziness) Qty: 14 0RF No Action ferrous sulfate 325 mg (65 mg iron) tablet 325 mg PO DAILY Qty: 30 1RF levothyroxine 175 mcg tablet 175 mcg PO DAILY Qty: 90 0RF cholecalciferol (vitamin D3) 1,250 mcg (50,000 unit) capsule 1,250 mcg PO QWEEK Qty: 13 0RF alum-mag hydroxide-simeth [Maalox Advanced] 200-200-20 mg/5 mL suspension 5 ml PO 5XD PRN (Reason: dyspepsia) Qty: 30 0RF Rx Instructions: administer between meals and at bedtime simvastatin 10 mg tablet 10 mg PO DAILY 90 Days Qty: 90 0RF aspirin [Adult Low Dose Aspirin] 81 mg tablet,delayed release (DR/EC) 81 mg PO DAILY 0RF sennosides [Natural Senna Laxative] 8.6 mg tablet 8.6 mg PO BEDTIME Qty: 90 3RF polyethylene glycol 3350 [Miralax] 17 gram powder in packet 17 g PO DAILY Qty: 30 3RF simethicone [Gas Relief (simethicone)] 125 mg capsule 125 mg PO TID-QID PRN (Reason: abdominal distention) Qty: 120 2RF Referrals: Cheikh Andres [Physician] - 2 days
[2021-09-29 11:29] LABS: MANUAL DIFF FLAG NO
[2021-09-29] MEDS: ondansetron HCL 4 MG/2 ML VIAL IVPUSH (11:31)
[2021-09-29] MEDS: Meclizine HCl 25 MG TABLET PO (11:31)
[2021-09-29] MEDS: diphenhydrAMINE HCL 50 MG/ML VIAL 12.5 MG IVPUSH (11:31)
[2021-09-29] MEDS: 0.9 % Sodium Chloride 1,000 ML 999 ML IV (11:32)
[2021-09-29 11:35] LABS: Basophils Percent Auto 0.4 % (0-2); Eosinophils Absolute Auto 0.2 X10*3/uL (0.0-0.4); Eosinophils Percent Auto 1.6 % (0-4); Hematocrit 34.1 % (37.0-47.0); Hemoglobin 10.8 g/dl (12.0-16.0); Imm Gran Abs Auto 0.02 X10*3/uL (0.00-0.03); Imm Gran Pct Auto 0.2 % (0.0-0.4); Lymphocytes Absolute Auto 2.7 X10*3/uL (1.2-4.9); Lymphocytes Percent Auto 29.1 % (20-40); Mean Corpuscular HGB Conc 31.7 g/dl (31.0-35.0); Mean Corpuscular Hemoglobin 25.9 pg (27.0-33.0); Mean Corpuscular Volume 81.8 fL (80.0-98.0); Mean Platelet Volume 11.2 fL (9.4-12.3); Monocytes Absolute Auto 0.5 X10*3/uL (0.1-1.2); Monocytes Percent Auto 5.8 % (2-11); Neutrophils Absolute Auto 5.7 x10*3/uL (2.0-8.3); Neutrophils Percent Auto 62.9 % (45-73); Platelet Count 369 X10*3/uL (160-400); Red Blood Count 4.17 X10*6/uL (4.20-5.50); Red Cell Distribution Width 14.6 % (11.0-16.0); White Blood Count 9.1 X10*3/uL (4.8-10.8)
[2021-09-29 11:48] LABS: Alanine Aminotransferase 18 U/L (0-31); Albumin Level 4.1 g/dL (3.5-5.0); Alkaline Phosphatase 89 U/L (39-117); Anion Gap 15 (12-20); Aspartate Amino Transferase 19 U/L (5-31); Bilirubin Direct 0.2 mg/dL (0.0-0.5); Bilirubin Total 0.4 mg/dL (0.0-1.0); Blood Urea Nitrogen 12 mg/dL (9-16); Calcium 9.6 mg/dL (8.4-10.2); Carbon Dioxide 24 mmol/L (22-29); Chloride 100 mmol/L (96-108); Creatinine Clr Calc Pharmacy 113.2; Estimated Glomerular Filt Rate > 60; Glucose Random 81 mg/dL (60-115); Potassium 4.5 mmol/L (3.3-5.1); Sodium 134 mmol/L (135-145); Total Protein 7.4 g/dL (6.5-8.0)
[2021-09-29 11:50] LABS: COVID-19 Test Negative (Negative); IDNOW Serial# 16C4AD1C
[2021-09-29 11:51] LABS: Troponin-I High Sensitivity 3.7 ng/L (<3.5-17.0)
[2021-09-29 13:05] LABS: Appearance Urine CLEAR; Color Urine STRAW; Glucose Urine UA NEG (NEG); Leukocyte Esterase Urine NEG (NEG); Nitrite Urine NEG (NEG); PH 5.5 (5.0-8.0); Specific Gravity - Urine 1.025 (1.005-1.025); Urine Blood NEG (NEG); Urine Ketones 5 MG/DL (NEG); Urine Protein NEG (NEG-TRACE)
[2021-09-29 13:07] LABS: UPreg QC Valid YES; Urine Pregnancy NEGATIVE (NEGATIVE)
[2021-09-29 13:18] LABS: Amphetamine Screen Urine Not Detected (Not Detect); Barbiturates, Urine Not Detected (Not Detect); Benzodiazepines Screen Urine Not Detected (Not Detect); Cannabinoid Screen Urine Not Detected (Not Detect); Cocaine Screen Urine Not Detected (Not Detect); Fentanyl, urine Not Detected (Not Detect); Opiate Screen Urine Not Detected (Not Detect); Phencyclidine Screen Urine Not Detected (Not Detect)
--- NOTE | 2021-09-29 14:58 | PC.NURSE ---
this lead technical writer assumed care of this pt at 1430. will follow up with plan of care.
== END 2021-09-29 16:02 | disposition home or self-care (01) ==
PROVIDERS: Physician Assistant; Emergency Provider Emergency Medicine; PCP Physician Assistant
DX: R42 Dizziness and giddiness (principal); Z79.82 Long term (current) use of aspirin; Z20.822 Contact with and (suspected) exposure to COVID-19
CPT/HCPCS: 70450; 80048; 80076; 80307; 81003; 81025; 82947; 83735; 84484; 85025; 87635; 93005; 96361; 96374; 96375; 99284; 99285; J1200; J2405

== ENCOUNTER 2021-11-07 07:31 | Outpatient (REF) | payer OTHER, SELFPAY ==
[2021-11-07 08:31] LABS: Hematocrit 35.8 % (37.0-47.0); Hemoglobin 11.2 g/dl (12.0-16.0); Mean Corpuscular HGB Conc 31.3 g/dl (31.0-35.0); Mean Corpuscular Hemoglobin 25.9 pg (27.0-33.0); Mean Corpuscular Volume 82.7 fL (80.0-98.0); Mean Platelet Volume 11.3 fL (9.4-12.3); Platelet Count 354 X10*3/uL (160-400); Red Blood Count 4.33 X10*6/uL (4.20-5.50); Red Cell Distribution Width 15.2 % (11.0-16.0); White Blood Count 11.7 X10*3/uL (4.8-10.8)
[2021-11-07 08:48] LABS: Alanine Aminotransferase 23 U/L (0-31); Albumin Level 4.3 g/dL (3.5-5.0); Alkaline Phosphatase 94 U/L (39-117); Anion Gap 12 (12-20); Aspartate Amino Transferase 18 U/L (5-31); Bilirubin Total 0.3 mg/dL (0.0-1.0); Blood Urea Nitrogen 17 mg/dL (9-16); Calcium 9.8 mg/dL (8.4-10.2); Carbon Dioxide 24 mmol/L (22-29); Chloride 105 mmol/L (96-108); Cholesterol 151 mg/dL; Estimated Glomerular Filt Rate > 60; Glucose Fasting 116 mg/dL (60-99); HDL Cholesterol 38 mg/dL; Iron 39 mcg/dL (30-160); LDL Cholesterol Calculated 99 mg/dl; Lipase 11 U/L (8-78); Percent Iron Saturation 12 % (15-50); Potassium 4.9 mmol/L (3.3-5.1); Sodium 136 mmol/L (135-145); Total Iron Binding Capacity 313 mcg/dL (228-428); Total Protein 7.6 g/dL (6.5-8.0); Triglycerides 72 mg/dL; Unsaturated Iron Binding 274 ug/dL
[2021-11-07 09:12] LABS: TSH reflex Free T4 0.25 uIU/mL (0.32-4.0)
[2021-11-07 09:51] LABS: Free T4 (Free Thyroxine) 1.34 ng/dL (0.71-1.85)
== END 2021-11-07 07:32 | disposition home or self-care (01) ==
LOC: HO.LAB 07:31
PROVIDERS: PCP Physician Assistant; Visit Provider Physician Assistant
DX: R10.13 Epigastric pain (principal); E66.01 Morbid (severe) obesity due to excess calories; Z68.41 Body mass index [BMI] 40.0-44.9, adult; E03.9 Hypothyroidism, unspecified; D50.9 Iron deficiency anemia, unspecified
CPT/HCPCS: 36415; 80053; 80061; 83540; 83690; 84439; 84443; 85027

== ENCOUNTER 2022-09-29 05:27 | Emergency (ER) | payer OTHER, MEDICAID, SELFPAY ==
--- NOTE | ~2022-09-29 | US_ITS ---
EXAMINATION: US ABDOMEN LIMITED CLINICAL INFORMATION: Right upper quadrant pain. Rule out cholelithiasis versus cholecystitis.. COMPARISON: None TECHNIQUE: Real-time imaging of the right upper quadrant abdominal viscera. FINDINGS: PANCREAS: Normal. LIVER: Normal. The liver is normal in size. The liver contour is normal. Parenchymal echogenicity is normal. No focal hepatic lesion. There is no intrahepatic biliary duct dilatation seen. GALLBLADDER: There are multiple mobile gallstones without wall thickening. No pericholecystic fluid collection. COMMON BILE DUCT: Normal in caliber measuring 0.7 cm in diameter. RIGHT KIDNEY: Normal. No hydronephrosis. No renal calculi or focal parenchymal lesions. The kidney measures 10.6 cm in maximum dimension. FREE FLUID: None. US/US abdomen limited IMPRESSION: 1. Cholelithiasis without wall thickening. 2. Visualized pancreas, liver, CBD and right kidney is unremarkable.
[2022-09-29 05:45] VITALS: BP 208/112; BP 208/120; PULSE 76; PULSE 79; RESP 18; O2SAT 96; BMI 36.6
[2022-09-29 05:50] VITALS: BP 208/120; PULSE 76; RESP 18; O2SAT 96
[2022-09-29 06:25] VITALS: BP 157/68; PULSE 82; RESP 16; TEMP 37; O2SAT 100
[2022-09-29 06:40] LABS: MANUAL DIFF FLAG NO
[2022-09-29 06:42] LABS: Basophils Absolute Auto 0.1 X10*3/uL (0.0-0.2); Basophils Percent Auto 0.4 % (0-2); Eosinophils Absolute Auto 0.1 X10*3/uL (0.0-0.4); Eosinophils Percent Auto 0.9 % (0-4); Hematocrit 37.8 % (37.0-47.0); Hemoglobin 12.1 g/dl (12.0-16.0); Imm Gran Abs Auto 0.03 X10*3/uL (0.00-0.03); Imm Gran Pct Auto 0.3 % (0.0-0.4); Lymphocytes Absolute Auto 2.3 X10*3/uL (1.2-4.9); Lymphocytes Percent Auto 19.7 % (20-40); Mean Corpuscular Hemoglobin 25.7 pg (27.0-33.0); Mean Corpuscular Volume 80.4 fL (80.0-98.0); Mean Platelet Volume 11.1 fL (9.4-12.3); Monocytes Absolute Auto 0.5 X10*3/uL (0.1-1.2); Monocytes Percent Auto 4.6 % (2-11); Neutrophils Absolute Auto 8.6 x10*3/uL (2.0-8.3); Neutrophils Percent Auto 74.1 % (45-73); Platelet Count 372 X10*3/uL (160-400); Red Cell Distribution Width 14.4 % (11.0-16.0); White Blood Count 11.6 X10*3/uL (4.8-10.8)
[2022-09-29 06:48] LABS: Appearance Urine Cloudy; Color Urine Yellow; Glucose Urine UA Negative (Negative); Leukocyte Esterase Urine Negative (Negative); Nitrite Urine Negative (Negative); Specific Gravity - Urine >= 1.030 (1.005-1.025); UMIC TRIGGER UACC YES; Urine Blood Small (1+) (Negative); Urine Ketones Negative (Negative); Urine Protein Trace mg/dL (Neg-Trace)
[2022-09-29] MEDS: Ketorolac Tromethamine 30 MG/ML VIAL 15 MG IVPUSH (06:49)
[2022-09-29] MEDS: Acetaminophen 325 MG TABLET 975 MG PO (06:50)
[2022-09-29 06:55] LABS: Bacteria Urine 3+ (None Seen); Hyaline Casts Urine 0-2 /LPF (0-2); RBC Urine 0-2 /HPF (0-2); WBC Urine 0-5 /HPF (0-5)
[2022-09-29 07:02] LABS: Alanine Aminotransferase 16 U/L (0-31); Albumin Level 4.7 g/dL (3.5-5.0); Alkaline Phosphatase 82 U/L (39-117); Anion Gap 14 (12-20); Aspartate Amino Transferase 14 U/L (5-31); Bilirubin Total 0.5 mg/dL (0.0-1.0); Blood Urea Nitrogen 12 mg/dL (9-16); Calcium 9.5 mg/dL (8.4-10.2); Carbon Dioxide 20 mmol/L (22-29); Chloride 105 mmol/L (96-108); Creatinine Clr Calc Pharmacy 103.1; Estimated Glomerular Filt Rate > 60; Glucose Random 112 mg/dL (60-115); Potassium 4.4 mmol/L (3.3-5.1); Sodium 135 mmol/L (135-145)
--- NOTE | 2022-09-29 07:21 | ED.ABDPAIN ---
HPI - Abdominal Pain General Chief Complaint: Abdominal Pain Stated Complaint: Abd Pain Time Seen by Provider: 09/29/22 06:54 Source: patient Mode of arrival: ambulatory Limitations: no limitations History of Present Illness HPI narrative: 36-year-old female came in for evaluation of right upper quadrant abdominal pain started since last night. Patient describes the pain localized to the right upper quadrant area radiates to the right side of the upper back, pain is constant severe 7/10, worsening with movement or taking a deep breath, food also makes the pain worse, no nausea, no vomiting, no fever or chills. Patient had previous similar pain in the past but never lasted that long, patient on PPI for gastritis. Past surgical history is significant for appendectomy. Related Data Home Medications Medication Instructions Recorded Confirmed aspirin 81 mg tablet,delayed 81 mg PO DAILY 09/07/20 10/25/21 release (Adult Low Dose Aspirin) Previous Rx's Medication Instructions Recorded aluminum-mag hydroxide-simethicone 5 ml PO 5XD PRN dyspepsia #30 mL 03/23/21 200 mg-200 mg-20 mg/5 mL oral susp (Maalox Advanced) polyethylene glycol 3350 17 gram 17 g PO DAILY #30 ea 09/05/21 oral powder packet (Miralax) sennosides 8.6 mg tablet (Natural 8.6 mg PO BEDTIME constipation #90 09/05/21 Senna Laxative) tabs simethicone 125 mg capsule (Gas 125 mg PO TID-QID PRN abdominal 09/05/21 Relief (simethicone)) distention #120 caps meclizine 25 mg tablet 25 mg PO TID PRN dizziness #14 tabs 09/29/21 simvastatin 10 mg tablet 10 mg PO DAILY 90 days #90 tabs 01/17/22 ferrous sulfate 325 mg (65 mg 325 mg PO DAILY #90 tabs 01/30/22 iron) tablet fluticasone propionate 50 1 spray intranasal DAILY 30 days 01/30/22 mcg/actuation nasal #16 grams spray,suspension (Flonase Allergy Relief) levothyroxine 175 mcg tablet 175 mcg PO DAILY #90 tabs 06/18/22 omeprazole 40 mg capsule,delayed 40 mg PO DAILY #30 caps 09/29/22 release Allergies Allergy/AdvReac Type Severity Reaction Status Date / Time sulfamethoxazole Allergy Intermediate Rash all Verified 10/25/21 16:25 [From Bactrim] over body, swelling & redness in face trimethoprim [From Bactrim] Allergy Intermediate Rash all Verified 10/25/21 16:25 over body, swelling & redness in face prednisone AdvReac Intermediate night Verified 10/25/21 16:25 sweats oxycodone [OxyContin] AdvReac Unknown itchiness Verified 10/25/21 16:25 Review of Systems Review of Systems All other systems are reviewed and are negative Constitutional: Reports as per HPI and Reports no additional constitutional complaints Eyes: Reports as per HPI and Reports no additional eye complaints Reports system reviewed and no additional complaints, except as documented Cardiovascular: Reports as per HPI and Reports no additional cardiovascular complaints Respiratory: Reports as per HPI and Reports no additional respiratory complaints Gastrointestinal: Reports as per HPI and Reports no additional gastrointestinal complaints Genitourinary: Reports no additional female genitourinary complaints Musculoskeletal: Reports no additional musculoskeletal complaints Skin/Breast: Reports system reviewed and no additional complaints, except as docu Psychiatric: Reports no additional psychiatric complaints Endocrine: Reports no additional endocrine complaints Hematologic/Lymphatic: Reports no additional hematologic/lymphatic complaints Allergic/Immunologic: Reports no additional allergic/immunologic complaints Reports system reviewed and no additional complaints, except as documented and Reports Abnormal speech present [facility] Past Medical History Surgical History History of appendectomy S/P LASIK surgery Family History Family History Father Medical history unknown Mother Hypertension Hyperlipidemia Thyroid disease Sister Hypothyroid Family/Other Diabetes Social History Social History Housing: Apartment Alcohol intake: never Patient Tobacco Use Status: Never used Tobacco Smoked in Last 30 Days: No Second Hand Smoke Exposure: No Use of substances other than those prescribed or required for medical reasons: No Advance Directives: No Advance Directives Information Provided: No Patient : No service: No Current occupational status: employed Cognitive needs: No Hearing needs: No Vision needs: Yes Physical Exam ED Vital Signs: Vital Signs - 24 hr 09/29/22 05:45 09/29/22 05:50 09/29/22 06:25 Temperature 98.6 F Pulse Rate 79 76 82 Respiratory Rate 18 18 16 Blood Pressure 208/120 H 208/120 H 157/68 H Pulse Oximetry 96 96 100 Oxygen Delivery Method Room Air Room Air Room Air 09/29/22 07:54 Temperature 98.8 F Pulse Rate 68 Respiratory Rate 14 Blood Pressure 122/74 Pulse Oximetry 99 Oxygen Delivery Method Room Air BMI result Body Mass Index 36.6 Vital signs have been reviewed as appeared to be correct. Blood pressure normal. Heart rate normal. Respiration rate normal. Temperature normal. Oxygen saturation normal. Appearance: Alert. Oriented X3. No acute distress. Head: Normal external exam. Normocephalic. Atraumatic. No Dee signs noted. No raccoon eyes noted Eyes: PERRLA. EOMI. Conjunctiva and sclera normal. Eyelids normal. ENT: TM's Normal. Pharynx normal. Uvula midline. Moist mucous membranes. No trismus noted. No drooling noted. No muffled voice noted. Neck: Normal inspection. Neck supple. FROM. No adenopathy. Thyroid Normal. No meningeal signs. No neck mass noted. CVS: Normal heart rate and rhythm. Heart sound normal. No murmurs noted. Pulses normal throughout. Respiratory: No respiratory distress. Painless inspiration. Breath sounds normal. No wheezes/rales/rhonchi noted. Chest nontender. No accessory muscle usage noted or decreased air movement noted. Abdomen: Soft, mild epigastric tenderness with no rebound tenderness or guarding. Bowel sounds normal in all 4 quadrants. No distention noted. No organomegaly noted. No visible injury noted. Back: No CVA tenderness. Full range of motion noted. Skin: Skin warm and dry. Normal skin color. Normal skin turgor. No rashes/lesions/lacerations noted. Extremities: No lower extremity edema. Extremities exhibit normal range of motion. Extremities nontender. Neuro: Oriented X 3. Cranial nerve exam: II-XII are grossly intact No motor deficit. No sensory deficit. Reflexes normal. Course Course Course Narrative: 36-year-old female came in for evaluation of epigastric pain that he has been constant lately, patient is taking PPI. Will discharge the patient to follow up with GI for possible upper endoscopy, patient was instructed to avoid taking alcohol and also avoid fatty foods. Patient was mild epigastric tenderness no rebound tenderness no guarding exam is not consistent with acute abdomen, or perforated viscus. Medical Decision Making Differential Diagnosis Differential Diagnoses: The differential diagnosis associated with the presentation includes (Gastritis, pancreatitis, PUD, cholelithiasis, acute cholecystitis.) Lab Data MDM Lab Attestation statement: I reviewed the patient's lab results. 09/29/22 06:36 09/29/22 06:36 Labs: Lab Results 09/29/22 09/29/22 09/29/22 Range/Units 06:36 06:36 06:36 WBC 11.6 H (4.8-10.8) X10*3/uL RBC 4.70 (4.20-5.50) X10*6/uL Hgb 12.1 (12.0-16.0) g/dl Hct 37.8 (37.0-47.0) % MCV 80.4 (80.0-98.0) fL MCH 25.7 L (27.0-33.0) pg MCHC 32.0 (31.0-35.0) g/dl RDW 14.4 (11.0-16.0) % Plt Count 372 (160-400) X10*3/uL MPV 11.1 (9.4-12.3) fL Immature Gran % (Auto) 0.3 (0.0-0.4) % Neut % (Auto) 74.1 H (45-73) % Lymph % (Auto) 19.7 L (20-40) % [place] % (Auto) 4.6 (2-11) % Eos % (Auto) 0.9 (0-4) % Baso % (Auto) 0.4 (0-2) % Lymph # (Auto) 2.3 (1.2-4.9) X10*3/uL [place] # (Auto) 0.5 (0.1-1.2) X10*3/uL Eos # (Auto) 0.1 (0.0-0.4) X10*3/uL Baso # (Auto) 0.1 (0.0-0.2) X10*3/uL Abs Immat Gran (auto) 0.03 (0.00-0.03) X10*3/uL Absolute Neuts (auto) 8.6 H (2.0-8.3) x10*3/uL Absolute Nucleated RBC 0.000 (0.0-0.012) X10*3/uL Nucleated RBC % (auto) 0.0 (0.0-0.2) /100WBC Sodium 135 (135-145) mmol/L Potassium 4.4 (3.3-5.1) mmol/L Chloride 105 (96-108) mmol/L Carbon Dioxide 20 L (22-29) mmol/L Anion Gap 14 (12-20) BUN 12 (9-16) mg/dL Creatinine 0.79 (0.5-1.4) mg/dL Estim Creat Clear Calc 103.1 Estimated GFR > 60 Random Glucose 112 (60-115) mg/dL Calcium 9.5 (8.4-10.2) mg/dL Total Bilirubin 0.5 (0.0-1.0) mg/dL AST 14 (5-31) U/L ALT 16 (0-31) U/L Alkaline Phosphatase 82 (39-117) U/L Total Protein 8.0 (6.5-8.0) g/dL Albumin 4.7 (3.5-5.0) g/dL Lipase 14 (8-78) U/L Urine Color Yellow Urine Appearance Cloudy Urine pH 5.0 (5.0-9.0) Ur Specific [place] >= 1.030 H (1.005-1.025) Urine Protein Trace (Neg-Trace) mg/dL Urine Glucose (UA) Negative (Negative) mg/dL Urine Ketones Negative (Negative) mg/dL Urine Blood Small (1+) H (Negative) Urine Nitrite Negative (Negative) Ur Leukocyte Esterase Negative (Negative) Urine RBC 0-2 (0-2) /HPF Urine WBC 0-5 (0-5) /HPF Ur Squamous Epith Cells 11-20 (0-2) /HPF Urine Bacteria 3+ (None Seen) Hyaline Casts 0-2 (0-2) /LPF Urine Test (NEGATIVE) 09/29/22 Range/Units 06:36 WBC (4.8-10.8) X10*3/uL RBC (4.20-5.50) X10*6/uL Hgb (12.0-16.0) g/dl Hct (37.0-47.0) % MCV (80.0-98.0) fL MCH (27.0-33.0) pg MCHC (31.0-35.0) g/dl RDW (11.0-16.0) % Plt Count (160-400) X10*3/uL MPV (9.4-12.3) fL Immature Gran % (Auto) (0.0-0.4) % Neut % (Auto) (45-73) % Lymph % (Auto) (20-40) % [place] % (Auto) (2-11) % Eos % (Auto) (0-4) % Baso % (Auto) (0-2) % Lymph # (Auto) (1.2-4.9) X10*3/uL [place] # (Auto) (0.1-1.2) X10*3/uL Eos # (Auto) (0.0-0.4) X10*3/uL Baso # (Auto) (0.0-0.2) X10*3/uL Abs Immat Gran (auto) (0.00-0.03) X10*3/uL Absolute Neuts (auto) (2.0-8.3) x10*3/uL Absolute Nucleated RBC (0.0-0.012) X10*3/uL Nucleated RBC % (auto) (0.0-0.2) /100WBC Sodium (135-145) mmol/L Potassium (3.3-5.1) mmol/L Chloride (96-108) mmol/L Carbon Dioxide (22-29) mmol/L Anion Gap (12-20) BUN (9-16) mg/dL Creatinine (0.5-1.4) mg/dL Estim Creat Clear Calc Estimated GFR Random Glucose (60-115) mg/dL Calcium (8.4-10.2) mg/dL Total Bilirubin (0.0-1.0) mg/dL AST (5-31) U/L ALT (0-31) U/L Alkaline Phosphatase (39-117) U/L Total Protein (6.5-8.0) g/dL Albumin (3.5-5.0) g/dL Lipase (8-78) U/L Urine Color Urine Appearance Urine pH (5.0-9.0) Ur Specific [place] (1.005-1.025) Urine Protein (Neg-Trace) mg/dL Urine Glucose (UA) (Negative) mg/dL Urine Ketones (Negative) mg/dL Urine Blood (Negative) Urine Nitrite (Negative) Ur Leukocyte Esterase (Negative) Urine RBC (0-2) /HPF Urine WBC (0-5) /HPF Ur Squamous Epith Cells (0-2) /HPF Urine Bacteria (None Seen) Hyaline Casts (0-2) /LPF Urine Test NEGATIVE (NEGATIVE) Independent Interpretation I performed an independent interpretation of an: Ultrasound (Cholelithiasis with no acute cholecystitis.) Radiology Impression Discussion of test interpretation with radiology: I have reviewed the radiologist's reading. Medications Administered Discontinued Medications Generic Name Dose Route Start Last Admin Trade Name Freq PRN Reason Stop Dose Admin Acetaminophen 975 mg 09/29/22 06:03 09/29/22 06:50 Acetaminophen 325 Mg Tablet PO 09/29/22 06:04 975 mg ONCE ONE Administration Famotidine 20 mg 09/29/22 07:18 09/29/22 08:00 Famotidine/Pf 20 Mg/2 Ml Vial IVPUSH 09/29/22 07:19 20 mg ONCE ONE Administration Ketorolac Tromethamine 15 mg 09/29/22 06:02 09/29/22 06:49 Ketorolac Tromethamine 30 Mg/Ml Vial IVPUSH 09/29/22 06:03 15 mg ONCE ONE Administration Morphine Sulfate 1 mg 09/29/22 07:18 09/29/22 08:03 Morphine Sulfate 2 Mg/Ml Cartridge IVPUSH 09/29/22 07:19 1 mg ONCE ONE Administration Protocol Discharge Plan Discharge Clinical Impression: Gastritis Patient Disposition: Home, Self-Care Instructions: Gastritis (ED), Diet for Stomach Ulcers and Gastritis (ED) Prescriptions: New omeprazole 40 mg capsule,delayed release(DR/EC) 40 mg PO DAILY Qty: 30 0RF No Action simvastatin 10 mg tablet 10 mg PO DAILY 90 Days Qty: 90 2RF fluticasone propionate [Flonase Allergy Relief] 50 mcg/actuation spray,suspension 1 spray intranasal DAILY 30 Days Qty: 16 3RF Rx Instructions: administer into each nostril ferrous sulfate 325 mg (65 mg iron) tablet 325 mg PO DAILY Qty: 90 1RF levothyroxine 175 mcg tablet 175 mcg PO DAILY Qty: 90 2RF alum-mag hydroxide-simeth [Maalox Advanced] 200-200-20 mg/5 mL suspension 5 ml PO 5XD PRN (Reason: dyspepsia) Qty: 30 0RF Rx Instructions: administer between meals and at bedtime meclizine 25 mg tablet 25 mg PO TID PRN (Reason: dizziness) Qty: 14 0RF aspirin [Adult Low Dose Aspirin] 81 mg tablet,delayed release (DR/EC) 81 mg PO DAILY sennosides [Natural Senna Laxative] 8.6 mg tablet 8.6 mg PO BEDTIME Qty: 90 3RF polyethylene glycol 3350 [Miralax] 17 gram powder in packet 17 g PO DAILY Qty: 30 3RF simethicone [Gas Relief (simethicone)] 125 mg capsule 125 mg PO TID-QID PRN (Reason: abdominal distention) Qty: 120 2RF Referrals: Lisa Clark MD [Physician] - Stand Alone Forms: Work/School Release
[2022-09-29 07:34] LABS: UPreg QC Valid YES; Urine Pregnancy NEGATIVE (NEGATIVE)
[2022-09-29 07:39] LABS: Lipase 14 U/L (8-78)
[2022-09-29 07:54] VITALS: BP 122/74; PULSE 68; RESP 14; TEMP 37.1; O2SAT 99
[2022-09-29] MEDS: Famotidine/PF 20 MG/2 ML VIAL IVPUSH (08:00)
[2022-09-29] MEDS: Morphine Sulfate 2 MG/ML CARTRIDGE 1 MG IVPUSH (08:03)
[2022-09-29] MEDS: Magnesium Hydrox/Alum Hydrox 30 ML ORAL.SUSP PO (09:59)
== END 2022-09-29 11:00 | disposition home or self-care (01) ==
PROVIDERS: Emergency Provider Emergency Medicine
DX: K29.70 Gastritis, unspecified, without bleeding (principal); E66.9 Obesity, unspecified; Z68.36 Body mass index [BMI] 36.0-36.9, adult; Z79.82 Long term (current) use of aspirin; Z79.02 Long term (current) use of antithrombotics/antiplatelets; Z79.899 Other long term (current) drug therapy
CPT/HCPCS: 36415; 76705; 80053; 81001; 81025; 83690; 85025; 96374; 96375; 99284; J1885; J2270

== ENCOUNTER 2022-12-07 07:39 | Inpatient (IN) | payer OTHER, MEDICAID, SELFPAY ==
[2022-12-07] VITALS (11 sets, daily range): BP systolic 105–143; BP diastolic 58–93; PULSE 60–85; RESP 12–18; TEMP 35.8–37.1; O2SAT 96–99; BMI 36.9
--- NOTE | ~2022-12-07 | US_ITS ---
EXAMINATION: US ABDOMEN LIMITED CLINICAL INFORMATION: Right upper quadrant pain and colic. Elevated white blood cells. COMPARISON: Ultrasound abdomen limited 09/29/2022 TECHNIQUE: Real-time imaging of the right upper quadrant abdominal viscera. FINDINGS: GALLBLADDER: There are multiple echogenic mobile gallstones without wall thickening. No pericholecystic fluid collection. There is mild tenderness in the right upper quadrant by ultrasound probe. COMMON BILE DUCT: Normal in caliber measuring 0.7 cm in diameter. US/US abdomen limited IMPRESSION: Cholelithiasis with mild tenderness in right upper quadrant by ultrasound probe but no wall thickening or pericholecystic fluid collection. Findings are suggestive mild gallbladder disease.
--- NOTE | 2022-12-07 07:49 | ED.ABDPAIN ---
HPI - Abdominal Pain General Chief Complaint: Abdominal Pain Stated Complaint: upper abd pain, radiating to back. Time Seen by Provider: 12/07/22 07:46 Source: patient Mode of arrival: ambulatory Limitations: no limitations History of Present Illness HPI narrative: at 1am patient had epigastric pain going to the back, she feels like she is being punched. Appendectomy in the past, told that she had gallstones and that she could live with it. Related Data Home Medications Medication Instructions Recorded Confirmed aspirin 81 mg tablet,delayed 81 mg PO DAILY 09/07/20 10/25/21 release (Adult Low Dose Aspirin) Previous Rx's Medication Instructions Recorded aluminum-mag hydroxide-simethicone 5 ml PO 5XD PRN dyspepsia #30 mL 03/23/21 200 mg-200 mg-20 mg/5 mL oral susp (Maalox Advanced) polyethylene glycol 3350 17 gram 17 g PO DAILY #30 ea 09/05/21 oral powder packet (Miralax) sennosides 8.6 mg tablet (Natural 8.6 mg PO BEDTIME constipation #90 09/05/21 Senna Laxative) tabs simethicone 125 mg capsule (Gas 125 mg PO TID-QID PRN abdominal 09/05/21 Relief (simethicone)) distention #120 caps meclizine 25 mg tablet 25 mg PO TID PRN dizziness #14 tabs 09/29/21 simvastatin 10 mg tablet 10 mg PO DAILY 90 days #90 tabs 01/17/22 ferrous sulfate 325 mg (65 mg 325 mg PO DAILY #90 tabs 01/30/22 iron) tablet fluticasone propionate 50 1 spray intranasal DAILY 30 days 01/30/22 mcg/actuation nasal #16 grams spray,suspension (Flonase Allergy Relief) levothyroxine 175 mcg tablet 175 mcg PO DAILY #90 tabs 06/18/22 omeprazole 40 mg capsule,delayed 40 mg PO DAILY #30 caps 09/29/22 release Allergies Allergy/AdvReac Type Severity Reaction Status Date / Time sulfamethoxazole Allergy Intermediate Rash all Verified 10/25/21 16:25 [From Bactrim] over body, swelling & redness in face trimethoprim [From Bactrim] Allergy Intermediate Rash all Verified 10/25/21 16:25 over body, swelling & redness in face prednisone AdvReac Intermediate night Verified 10/25/21 16:25 sweats oxycodone [OxyContin] AdvReac Unknown itchiness Verified 10/25/21 16:25 PMFSH Past Medical History Surgical History History of appendectomy S/P LASIK surgery Family History Family History Father Medical history unknown Mother Hypertension Hyperlipidemia Thyroid disease Sister Hypothyroid Family/Other Diabetes Social History Social History Housing: Apartment Alcohol intake: unknown Patient Tobacco Use Status: Never used Tobacco Smoked in Last 30 Days: No Second Hand Smoke Exposure: No Use of substances other than those prescribed or required for medical reasons: Unknown Advance Directives: No Patient : No service: No Current occupational status: employed Cognitive needs: No Hearing needs: No Vision needs: Yes Physical Exam ED Vital Signs: Vital Signs - 24 hr 12/07/22 07:42 Temperature 98.7 F Pulse Rate 69 Respiratory Rate 18 Blood Pressure 115/76 Pulse Oximetry 97 Oxygen Delivery Method Room Air BMI result Body Mass Index 36.9 Course Reevaluation(s) Reevaluation #1: Discussed with Dr. Mendoza will admit Time: 12:09 Medical Decision Making Differential Diagnosis Differential Diagnoses: The differential diagnosis associated with the presentation includes (cholecystitis, ascending cholangitis, pancreatitis, gastritis were all considered) Admission/Observation Consideration of admission/observation: Escalation of care including admission/observation considered (patient with known stones and pain admission considered upon arrival) Consult Healthcare Provider Management of the patient was discussed with: [employer] Sales Representative (surgeon Dr. Mendoza consulted) Lab Data MDM Lab Attestation statement: I reviewed the patient's lab results. 12/07/22 08:18 12/07/22 08:18 Labs: Lab Results 12/07/22 12/07/22 Range/Units 08:18 08:18 WBC 13.1 H (4.8-10.8) X10*3/uL RBC 4.25 (4.20-5.50) X10*6/uL Hgb 11.0 L (12.0-16.0) g/dl Hct 34.5 L (37.0-47.0) % MCV 81.2 (80.0-98.0) fL MCH 25.9 L (27.0-33.0) pg MCHC 31.9 (31.0-35.0) g/dl RDW 15.1 (11.0-16.0) % Plt Count 375 (160-400) X10*3/uL MPV 11.2 (9.4-12.3) fL Immature Gran % (Auto) 0.2 (0.0-0.4) % Neut % (Auto) 74.8 H (45-73) % Lymph % (Auto) 18.9 L (20-40) % [place] % (Auto) 4.7 (2-11) % Eos % (Auto) 0.8 (0-4) % Baso % (Auto) 0.6 (0-2) % Lymph # (Auto) 2.5 (1.2-4.9) X10*3/uL [place] # (Auto) 0.6 (0.1-1.2) X10*3/uL Eos # (Auto) 0.1 (0.0-0.4) X10*3/uL Baso # (Auto) 0.1 (0.0-0.2) X10*3/uL Abs Immat Gran (auto) 0.02 (0.00-0.03) X10*3/uL Absolute Neuts (auto) 9.8 H (2.0-8.3) x10*3/uL Absolute Nucleated RBC 0.000 (0.0-0.012) X10*3/uL Nucleated RBC % (auto) 0.0 (0.0-0.2) /100WBC Sodium 136 (135-145) mmol/L Potassium 5.5 H D (3.3-5.1) mmol/L Chloride 105 (96-108) mmol/L Carbon Dioxide 23 (22-29) mmol/L Anion Gap 14 (12-20) BUN 16 (9-16) mg/dL Creatinine 0.79 (0.5-1.4) mg/dL Estim Creat Clear Calc 102.7 Estimated GFR > 60 Random Glucose 111 (60-115) mg/dL Calcium 10.0 (8.4-10.2) mg/dL Total Bilirubin 0.3 (0.0-1.0) mg/dL AST 20 (5-31) U/L ALT 22 (0-31) U/L Alkaline Phosphatase 72 (39-117) U/L Total Protein 7.7 (6.5-8.0) g/dL Albumin 4.2 (3.5-5.0) g/dL Lipase 14 (8-78) U/L Independent Interpretation I performed an independent interpretation of an: Ultrasound (Multiple stones) Independent Historian Clinical information obtained from an independent historian. History obtained from or confirmed by: Spouse External Record Review External record reviewed: Prior outpatient radiology Tests considered The following testing was considered but not selected: HIDA scan considered Medications Administered Discontinued Medications Generic Name Dose Route Start Last Admin Trade Name Freq PRN Reason Stop Dose Admin Sodium Chloride 1,000 mls @ 250 mls/hr 12/07/22 08:00 12/07/22 08:24 Ns IVCONT 12/07/22 11:59 250 mls/hr .Q4H TERESA Administration Morphine Sulfate 4 mg 12/07/22 07:53 12/07/22 08:25 Morphine Sulfate 4 Mg/Ml Cartridge IVPUSH 12/07/22 07:54 4 mg ONCE ONE Administration Protocol Morphine Sulfate 4 mg 12/07/22 08:55 12/07/22 09:01 Morphine Sulfate 4 Mg/Ml Cartridge IVPUSH 12/07/22 08:56 4 mg ONCE ONE Administration Protocol Ondansetron HCl 4 mg 12/07/22 07:53 12/07/22 08:24 Ondansetron Hcl 4 Mg/2 Ml Vial IVPUSH 12/07/22 07:54 4 mg ONCE ONE Administration Pantoprazole Sodium 40 mg 12/07/22 07:53 12/07/22 08:25 Pantoprazole Sodium 40 Mg/10 Ml Vial IVPUSH 12/07/22 07:54 40 mg ONCE ONE Administration Discharge Plan Discharge Clinical Impression: Cholecystitis, Biliary colic Patient Disposition: Admitted As Inpatient Prescriptions: No Action simvastatin 10 mg tablet 10 mg PO DAILY 90 Days Qty: 90 2RF fluticasone propionate [Flonase Allergy Relief] 50 mcg/actuation spray,suspension 1 spray intranasal DAILY 30 Days Qty: 16 3RF Rx Instructions: administer into each nostril ferrous sulfate 325 mg (65 mg iron) tablet 325 mg PO DAILY Qty: 90 1RF levothyroxine 175 mcg tablet 175 mcg PO DAILY Qty: 90 2RF alum-mag hydroxide-simeth [Maalox Advanced] 200-200-20 mg/5 mL suspension 5 ml PO 5XD PRN (Reason: dyspepsia) Qty: 30 0RF Rx Instructions: administer between meals and at bedtime meclizine 25 mg tablet 25 mg PO TID PRN (Reason: dizziness) Qty: 14 0RF omeprazole 40 mg capsule,delayed release(DR/EC) 40 mg PO DAILY Qty: 30 0RF aspirin [Adult Low Dose Aspirin] 81 mg tablet,delayed release (DR/EC) 81 mg PO DAILY sennosides [Natural Senna Laxative] 8.6 mg tablet 8.6 mg PO BEDTIME Qty: 90 3RF polyethylene glycol 3350 [Miralax] 17 gram powder in packet 17 g PO DAILY Qty: 30 3RF simethicone [Gas Relief (simethicone)] 125 mg capsule 125 mg PO TID-QID PRN (Reason: abdominal distention) Qty: 120 2RF
[2022-12-07 08:23] LABS: MANUAL DIFF FLAG NO
[2022-12-07] MEDS: ondansetron HCL 4 MG/2 ML VIAL IVPUSH (08:24)
[2022-12-07] MEDS: 0.9 % Sodium Chloride 1,000 ML 250 ML IVCONT (08:24)
[2022-12-07] MEDS: Morphine Sulfate 4 MG/ML CARTRIDGE IVPUSH ×2 (08:25→09:01)
[2022-12-07] MEDS: Pantoprazole Sodium 40 MG/10 ML VIAL IVPUSH (08:25)
[2022-12-07 08:33] LABS: Basophils Absolute Auto 0.1 X10*3/uL (0.0-0.2); Basophils Percent Auto 0.6 % (0-2); Eosinophils Absolute Auto 0.1 X10*3/uL (0.0-0.4); Eosinophils Percent Auto 0.8 % (0-4); Hematocrit 34.5 % (37.0-47.0); Imm Gran Abs Auto 0.02 X10*3/uL (0.00-0.03); Imm Gran Pct Auto 0.2 % (0.0-0.4); Lymphocytes Absolute Auto 2.5 X10*3/uL (1.2-4.9); Lymphocytes Percent Auto 18.9 % (20-40); Mean Corpuscular HGB Conc 31.9 g/dl (31.0-35.0); Mean Corpuscular Hemoglobin 25.9 pg (27.0-33.0); Mean Corpuscular Volume 81.2 fL (80.0-98.0); Mean Platelet Volume 11.2 fL (9.4-12.3); Monocytes Absolute Auto 0.6 X10*3/uL (0.1-1.2); Monocytes Percent Auto 4.7 % (2-11); Neutrophils Absolute Auto 9.8 x10*3/uL (2.0-8.3); Neutrophils Percent Auto 74.8 % (45-73); Platelet Count 375 X10*3/uL (160-400); Red Blood Count 4.25 X10*6/uL (4.20-5.50); Red Cell Distribution Width 15.1 % (11.0-16.0); White Blood Count 13.1 X10*3/uL (4.8-10.8)
[2022-12-07 08:49] LABS: Alanine Aminotransferase 22 U/L (0-31); Albumin Level 4.2 g/dL (3.5-5.0); Alkaline Phosphatase 72 U/L (39-117); Anion Gap 14 (12-20); Aspartate Amino Transferase 20 U/L (5-31); Bilirubin Total 0.3 mg/dL (0.0-1.0); Blood Urea Nitrogen 16 mg/dL (9-16); Carbon Dioxide 23 mmol/L (22-29); Chloride 105 mmol/L (96-108); Creatinine Clr Calc Pharmacy 102.7; Estimated Glomerular Filt Rate > 60; Glucose Random 111 mg/dL (60-115); Lipase 14 U/L (8-78); Potassium 5.5 mmol/L (3.3-5.1); Sodium 136 mmol/L (135-145); Total Protein 7.7 g/dL (6.5-8.0)
--- NOTE | 2022-12-07 10:40 | PM.HPGS ---
History of Present Illness History of Present Illness Date of Service: 12/07/22 Chief complaint: upper abd pain, radiating to back. Narrative: Jairon Esparza is a 37 year old female who is seen at the request of Dr. Barbosa because of abdominal pain that is been going on excess of a year. Patient states that she had previously been advised to see her systems software developer and notes that she did not follow up. She is not aware that she has a history of peptic ulcer disease and notes that she awoke abruptly today at 01:00 o'clock in the morning with pain in her upper abdomen radiating around to her back. She denies any nausea or vomiting. Patient notes very heavy menses; she is unaware of a prior diagnosis of anemia. Her partner is at the bedside and the patient gave permission to discuss her healthcare in front of her partner. Review of Systems Review of Systems: Yes all other systems are reviewed and are negative Constitutional: Constitutional: Reports as per [facility] Past Medical History Functional capacity: independent ambulation Family History Family History Father Medical history unknown Mother Hypertension Hyperlipidemia Thyroid disease Sister Hypothyroid Family/Other Diabetes Surgical History Surgical History History of appendectomy S/P LASIK surgery Social History Social History Housing: Apartment Alcohol intake: unknown Patient Tobacco Use Status: Never used Tobacco Smoked in Last 30 Days: No Second Hand Smoke Exposure: No Use of substances other than those prescribed or required for medical reasons: Unknown Advance Directives: No Patient : No service: No Current occupational status: employed Cognitive needs: No Hearing needs: No Vision needs: Yes Meds Allergies Allergy/AdvReac Type Severity Reaction Status Date / Time sulfamethoxazole Allergy Intermediate Rash all Verified 10/25/21 16:25 [From Bactrim] over body, swelling & redness in face trimethoprim [From Bactrim] Allergy Intermediate Rash all Verified 10/25/21 16:25 over body, swelling & redness in face prednisone AdvReac Intermediate night Verified 10/25/21 16:25 sweats oxycodone [OxyContin] AdvReac Unknown itchiness Verified 10/25/21 16:25 Active Medications: Current Medications Sodium Chloride (Ns) 1,000 mls @ 250 mls/hr IVCONT .Q4H TERESA Stop: 12/07/22 11:59 Last Admin: 12/07/22 08:24 Dose: 250 mls/hr Home Medications Medication Instructions Recorded Confirmed Last Taken Type aspirin 81 mg tablet,delayed 81 mg PO DAILY 09/07/20 10/25/21 Unknown History release (Adult Low Dose Aspirin) Physical Exam Vital Signs: Vital Signs: Last Vital Signs Temp 98.7 F 12/07/22 07:42 Pulse 69 12/07/22 07:42 Resp 18 12/07/22 07:42 BP 115/76 12/07/22 07:42 Pulse Ox 97 12/07/22 07:42 O2 Del Method Room Air 12/07/22 07:42 BMI result Body Mass Index 36.9 The patient is non-toxic & in good spirits NC/AT, PERRLA, EOMI Mood, affect & judgment all appear appropriate Sclera anicteric conjunctiva pink and moist Oropharynx is clear with no aphthous ulcers, Mallampati class 4, mucous membranes moist Faces & neck are plethoric Neck is supple with no masses, adenopathy or bruits Heart is regular, normal S1-S2 no rubs or murmurs Lungs are clear and equal anteriorly with no audible wheezing, rubs or dullness to percussion No CVA tenderness present Abdomen is obese with no demonstrable hernias. No HSM, rebound, rigidity, guarding, masses or bruits are present. Rectal exam is deferred Skin has good turgor and is free of rashes Extremities free of cyanosis clubbing edema Results Results Labs: Short CBC 12/07/22 Range/Units 08:18 WBC 13.1 H (4.8-10.8) X10*3/uL Hgb 11.0 L (12.0-16.0) g/dl Hct 34.5 L (37.0-47.0) % Plt Count 375 (160-400) X10*3/uL BMP 12/07/22 08:18 Sodium 136 Potassium 5.5 H D Chloride 105 Carbon Dioxide 23 BUN 16 Creatinine 0.79 Calcium 10.0 Liver Function 12/07/22 Range/Units 08:18 Total Bilirubin 0.3 (0.0-1.0) mg/dL AST 20 (5-31) U/L ALT 22 (0-31) U/L Alkaline Phosphatase 72 (39-117) U/L Albumin 4.2 (3.5-5.0) g/dL Abdominal ultrasound report/results: report reviewed and image reviewed Additional studies: I requested a repeat U/S re: acute cholecystitis. Pt is noted to have RUQ pain, cholelithiasis but no gallbladder wall thickening see report Assessment and Plan (1) RUQ abdominal pain: Status: Acute (2) Leukocytosis: Status: Acute (3) Anemia: Status: Acute (4) Microcytic anemia: Status: Acute (5) Thyromegaly: Status: Acute (6) Smoker: Status: Acute (7) Obese: Qualifiers: Body mass index: BMI 40.0-44.9 Obesity classification: adult class 3 (BMI >= 40) Obesity type: due to excess calories Serious obesity comorbidity presence: without serious comorbidity Qualified Code(s): E66.01 - Morbid (severe) obesity due to excess calories; Z68.41 - Body mass index [BMI]40.0-44.9, adult Status: Acute Plan The patient notes a history of this colicky pain and a resulted in her being sent to a systems software developer. She has never had an upper endoscopy to exclude peptic ulcer disease and we discussed this option. However, I explained the symptoms of biliary colic and recommended laparoscopic cholecystectomy. I reviewed the option of continued observation and admission to see if she improves followed by 2nd opinion with her systems software developer was offered but declined. I also reviewed the inherent risks to surgery which include, but are not limited to: Bleeding that could require another operation or blood transfusion, the need for open surgery, the unlikely but possible issue of bile leak that could require an ERCP, the risk of retained common duct stones that could require an ERCP, the risk of common bile duct injury which would require transfer to a larger institution for another operation. Patient seemed to understand her options, declined a assisted sales representative or 2nd opinion and wants to proceed. Instructions regarding diet and activity reviewed and apparently understood. The patient is advised to avoid rich fatty foods postoperatively to avoid GI distress/diarrhea and advised to not lift more than 20 lb for medical reasons to minimize the risk of hernia postoperatively. I recommended that she discuss these restrictions with her employer and that she is not disabled during this time frame but can perform light duty. The patient's questions seemed to be satisfactorily answered. Keep NPO, continue IVF. Void urinary bladder injection molding process technician to surgery. I have the patient's OR consent with me and we are tentatively scheduled for 14:00 today Time Spent With Patient Time: Total time managing care of this patient today ____ minutes. Quality Stroke Does the patient have a stroke diagnosis?: No VTE Prior VTE?: No VTE Risk Level:: Surgical - moderate VTE Device Contraindication: N/A - Device Ordered VTE Drug Contraindication: Treatment Not Indicated Procedures Date of Service Date of Service: 12/07/22
--- NOTE | 2022-12-07 10:43 | PC.NURSE ---
pt awaiting consult with surgery. per MD, surgeon will be avail at approx 12:00
[2022-12-07] MEDS: 0.9 % Sodium Chloride 500 ML 999 ML IV (12:34)
--- NOTE | 2022-12-07 12:36 | W.PM.OPN ---
Operative Note Operative Note Date of Service: 12/07/22 Narrative: Preop diagnosis: [Biliary colic] Postop diagnosis: [Acute calculous cholecystitis] Procedure: [Laparoscopic cholecystectomy] Surgeon: Goldy Mendoza MD Assist: [Chanel Espinal RN] Anesthesia: [GET, Marcaine, 0.5% with epi] Estimated blood loss: [10cc] Specimen: [Gallbladder with contents] Intraoperative findings: [Adhesions from the duodenum and omentum to the neck of the gallbladder; the cystic duct was 4-5 mm; the cystic artery 3 mm. Critical view of safety demonstrated. Edematous gallbladder fossa due to edema noted.] Indications: [The patient is a 37-year-old woman who has had several episodes of abdominal pain wrapping around to her back and associated with waking her in the middle of the night. She had been referred to a rn physician office over a year ago but describes no procedures being done, consequently, she did not follow up. She was seen last month here in the emergency department with biliary colic and ultrasound documented gallstones. She presents with another episode of biliary colic and is concerning for possible early acute calculous cholecystitis on repeat U/S, so I recommended cholecystectomy. I also reviewed the inherent risks to surgery which include, but are not limited to: Bleeding that could require another operation or blood transfusion, the need for open surgery, the unlikely but possible issue of bile leak that could require an ERCP, the risk of retained common duct stones that could require an ERCP, the risk of common bile duct injury which would require transfer to a larger institution for another operation. The possibility of persisting pain secondary to other pathology such as peptic ulcer disease was also discussed. Patient seemed to understand her options, declined a physical security specialist or 2nd opinion and wants to proceed. Procedure: [Patient was identified in the preoperative holding area and again in the operating room. She had voided her urinary bladder manager of international, SCDs were in place and she was placed supine on the table. An appropriate time-out was performed and preemptive local used at all trocar insertion sites. I began at the patient's left subcostal space due to a wide supraumbilical scar likely from her appendectomy. A stab incision was made, the Veress needle was inserted without difficulty and an appropriate drop test performed. An appropriate drop test was performed. The needle was connected to high flow and opening pressures was 8 mmHg. A pneumoperitoneum of 15 mmHg was then obtained using carbon dioxide and I accessed the patient's abdomen through the right side of the abdomen in the anterior axillary line at the level of the umbilicus using a 5 mm Optiview trocar and 30 degree/5 mm laparoscopic without incident through the patient's right abdomen in the anterior axillary line at the level of the umbilicus. There were no adhesions to the supraumbilical incision and the Veress needle was visualized and no injury from the needle was demonstrated.. Next a a 5 mm epigastric and 5 mm right subcostal port were placed with preemptive analgesia under direct laparoscopic vision and a 12 mm trocar placed above the umbilicus. The gallbladder was clearly identified and grasped by its fundus. It was retracted cranially and anteriorly and a limited lysis of adhesions to carefully preserved the adhered duodenum and omentum was performed. Then, dissection began lateral to the cystic triangle. The cystic duct was identified at its junction on the gallbladder and dissection began laterally, then circumferentially dissected using the [place] dissector and hook. The cystic artery was then carefully identified and circumferentially dissected. Once dissection of both structures was complete and the critical view of safety demonstrated, the duct and artery were double clipped proximally and once distally and sharply divided. Electrocautery was used to remove the gallbladder from its fossa on the liver and edema at the interface resulted in a diffuse ooze. The liver bed was inspected for hemostasis and the clips were noted to be on the respective structures. The gallbladder was placed in an Endo-Catch bag and delivered through the umbilicus under direct laparoscopic vision. The abdomen was again inspected with the laparoscoped and a abdomen deflated to assess for hemostasis. The patient was returned to neutral position, the abdomen deflated and the fascia of the supraumbilical incision closed with interrupted Vicryl sutures. Skin was closed with 4-0 Monocryl subcuticular sutures. Mastisol and Steri-Strips were applied followed by Band-Aids. The patient tolerated the procedure well and was extubated recovered in stable condition. All sponge instrument counts were correct. At the patient's request I called her partner, Aruna at [phone] and apprised her of the operation and plan. Her questions seemed to be satisfactorily answered.]
--- NOTE | 2022-12-07 12:46 | PHA.MEDREC ---
Pharmacy Consult ? Medication Reconciliation Pharmacy has completed the medication reconciliation. Patient reported medications. Reports only using iron tablets when she is on her period. Reports using a medication that start with K for pain. Ketorolac nishant cr. Contacted [facility], patient filled Ketorolac 10 mg in February of 2021. When asked if she still takes aspirin, patient reported that she is suppose to but does not. Olinda Lomeli, AmeliaD
--- NOTE | 2022-12-07 12:57 | PC.NURSE ---
ancef held for pre-op
--- NOTE | 2022-12-07 15:09 | P.CONAN_ITS ---
HPI - Anesthesia Eval Consult details Narrative: for lap. cholecystectomy PMFSH Active Problems Active Problems: All Active Problems (Updated 12/07/22 @ 12:13 by Marino Barbosa MD) Cholecystitis (Acute) Biliary colic (Acute) Anemia (Acute) Allergic rhinitis (Acute) Epigastric abdominal pain (Acute) RUQ abdominal pain (Acute) Leukocytosis (Acute) Somatic dysfunction of left sacroiliac joint (Acute) Dysuria (Acute) Screening for hypercholesterolemia (Acute) Ingrown toenail (Acute) Cellulitis (Acute) Microcytic anemia (Acute) Intracranial vascular stenosis (Acute) Thyromegaly (Acute) Left carotid bruit (Acute) Smoker (Acute) Obese (Acute) Carotid stenosis, left (Acute) Hypothyroid (Acute) Past Medical History Functional capacity: independent ambulation Patient : No (Patient reports that she doesn't have sex w men. No need for HCG.) Family History Family History Father Medical history unknown Mother Hypertension Hyperlipidemia Thyroid disease Sister Hypothyroid Family/Other Diabetes Family history of problems with anesthesia: No Surgical History Surgical History History of appendectomy S/P LASIK surgery History of Problems with Anesthesia: No Social History Social History Housing: Apartment Alcohol intake: unknown Patient Tobacco Use Status: Never used Tobacco Second Hand Smoke Exposure: No service: No Current occupational status: employed Cognitive needs: No Hearing needs: No Vision needs: Yes Meds Allergies Allergy/AdvReac Type Severity Reaction Status Date / Time sulfamethoxazole Allergy Intermediate Rash all Verified 10/25/21 16:25 [From Bactrim] over body, swelling & redness in face trimethoprim [From Bactrim] Allergy Intermediate Rash all Verified 10/25/21 16:25 over body, swelling & redness in face prednisone AdvReac Intermediate night Verified 10/25/21 16:25 sweats oxycodone [OxyContin] AdvReac Unknown itchiness Verified 10/25/21 16:25 Home Medications Medication Instructions Recorded Confirmed Last Taken Type ferrous sulfate 325 mg (65 mg 325 mg PO DAILY PRN MENSTURAL CYCLE 12/07/22 12/07/22 Unknown History iron) tablet ketorolac 10 mg tablet 10 mg PO TID PRN Pain 12/07/22 12/07/22 Unknown History Exam Exam Date and Time: December 07, 2022 1509 Height,Weight and Vital Signs: Height 5 ft 2 in Weight 91.626 kg Last Vital Signs Temp 97.7 F 12/07/22 14:28 Pulse 72 12/07/22 14:28 Resp 16 12/07/22 14:28 BP 105/58 L 12/07/22 14:28 Pulse Ox 98 12/07/22 14:28 O2 Del Method Room Air 12/07/22 14:28 Pertinent Lab Results Pertinent Lab Results: Laboratory Tests 12/07/22 12/07/22 08:18 08:18 WBC 13.1 H RBC 4.25 Hgb 11.0 L Hct 34.5 L MCV 81.2 MCH 25.9 L MCHC 31.9 RDW 15.1 Plt Count 375 MPV 11.2 Immature Gran % (Auto) 0.2 Neut % (Auto) 74.8 H Lymph % (Auto) 18.9 L [place] % (Auto) 4.7 Eos % (Auto) 0.8 Baso % (Auto) 0.6 Lymph # (Auto) 2.5 [place] # (Auto) 0.6 Eos # (Auto) 0.1 Baso # (Auto) 0.1 Abs Immat Gran (auto) 0.02 Absolute Neuts (auto) 9.8 H Absolute Nucleated RBC 0.000 Nucleated RBC % (auto) 0.0 Sodium 136 Potassium 5.5 H D Chloride 105 Carbon Dioxide 23 Anion Gap 14 BUN 16 Creatinine 0.79 Estim Creat Clear Calc 102.7 Estimated GFR > 60 Random Glucose 111 Calcium 10.0 Total Bilirubin 0.3 AST 20 ALT 22 Alkaline Phosphatase 72 Total Protein 7.7 Albumin 4.2 Lipase 14 Airway Mallampati Class: II TM Dist: <=3cm (Possibly very anterior. Poss diff airway.) Neck ROM: Full Heart: ok Lungs: ok Assessment and Plan Assessment Anesthesia Assessment: Anesthesia Plan Discussed and Chart Reviewed Final Anesthetic Review Family History of Problems with Anesthesia: No History of Problems with Anesthesia: No NPO: Yes ASA Class: II and III Final Preanesthetic Review: No Changes in Pt Med Stat, Meds/Allgs Chart Reviewed, Consent Obtained/Reviewed and Anes Risks/Benef Reviewed Patient Risk: Intermediate Procedure Risk: Intermediate Anesthetic Plan Anesthetic Plan: GA and Agree w/ Assess. and Plan Disposition: Standard PACU
--- NOTE | 2022-12-07 15:18 | PC.NURSE ---
pt to PACU
[2022-12-07] MEDS: HYDROmorphone HCl 0.5 MG/0.5 ML SYRINGE 0.25 MG IVPUSH ×3 (18:34→22:20)
--- NOTE | 2022-12-07 20:21 | PC.NURSE ---
Pt given Dilaudid 0.25mg at [address] Goldy Hamilton for 8 abdominal pain.
[2022-12-07] MEDS: Docusate Sodium 100 MG CAPSULE 200 MG PO (21:56)
[2022-12-07] MEDS: ceFAZolin Sodium/Dextrose,Iso 2 GM/50 ML PIGGYBACK IV (22:00)
[2022-12-08] MEDS: HYDROmorphone HCl 0.5 MG/0.5 ML SYRINGE 0.25 MG IVPUSH ×4 (00:54→07:50)
[2022-12-08 04:34] VITALS: BP 104/82
[2022-12-08 05:00] VITALS: BP 108/56
[2022-12-08 05:12] VITALS: PULSE 77; RESP 17; TEMP 37.1; O2SAT 98
[2022-12-08] MEDS: Levothyroxine Sodium 175 MCG TABLET PO (05:40)
[2022-12-08 06:19] LABS: MANUAL DIFF FLAG NO
[2022-12-08 06:39] LABS: Basophils Absolute Auto 0.1 X10*3/uL (0.0-0.2); Basophils Percent Auto 0.4 % (0-2); Eosinophils Absolute Auto 0.1 X10*3/uL (0.0-0.4); Eosinophils Percent Auto 0.4 % (0-4); Hematocrit 31.8 % (37.0-47.0); Hemoglobin 10.2 g/dl (12.0-16.0); Imm Gran Abs Auto 0.06 X10*3/uL (0.00-0.03); Imm Gran Pct Auto 0.4 % (0.0-0.4); Lymphocytes Absolute Auto 2.5 X10*3/uL (1.2-4.9); Lymphocytes Percent Auto 17.5 % (20-40); Mean Corpuscular HGB Conc 32.1 g/dl (31.0-35.0); Mean Corpuscular Volume 81.1 fL (80.0-98.0); Mean Platelet Volume 11.6 fL (9.4-12.3); Monocytes Absolute Auto 0.7 X10*3/uL (0.1-1.2); Neutrophils Absolute Auto 10.7 x10*3/uL (2.0-8.3); Neutrophils Percent Auto 76.3 % (45-73); Platelet Count 280 X10*3/uL (160-400); Red Blood Count 3.92 X10*6/uL (4.20-5.50); Red Cell Distribution Width 15.1 % (11.0-16.0)
[2022-12-08 06:43] LABS: Alanine Aminotransferase 41 U/L (0-31); Albumin Level 3.8 g/dL (3.5-5.0); Alkaline Phosphatase 77 U/L (39-117); Anion Gap 10 (12-20); Aspartate Amino Transferase 33 U/L (5-31); Bilirubin Total 0.7 mg/dL (0.0-1.0); Blood Urea Nitrogen 8 mg/dL (9-16); Calcium 8.6 mg/dL (8.4-10.2); Carbon Dioxide 22 mmol/L (22-29); Chloride 106 mmol/L (96-108); Creatinine Clr Calc Pharmacy 108.1; Estimated Glomerular Filt Rate > 60; Glucose Random 103 mg/dL (60-115); Potassium 4.4 mmol/L (3.3-5.1); Sodium 134 mmol/L (135-145); Total Protein 6.6 g/dL (6.5-8.0)
[2022-12-08 07:29] VITALS: BP 118/65; PULSE 75; RESP 20; TEMP 36.3; O2SAT 100
[2022-12-08] MEDS: Docusate Sodium 100 MG CAPSULE 200 MG PO (07:38)
--- NOTE | 2022-12-08 09:53 | HO.POSTANES ---
Post Anesthesia Evaluation Post Anesthesia Evaluation Vital Signs: Vital Signs Temp Pulse Resp BP Pulse Ox O2 Del Method 12/08/22 07:29 97.4 F 75 20 118/65 100 Room Air 12/08/22 05:00 108/56 L 12/08/22 05:12 98.7 F 77 17 98 Room Air 12/08/22 04:34 104/82 Anesthesia: General Endotracheal-GETA Mental Status: Awake Pain Control: Satisfactory Nausea/Vomiting: None Hydration: Adequate Anesthesia-Related Issues: No Anes. Related Issues
[2022-12-08] MEDS: Acetaminophen 325 MG TABLET 975 MG PO (10:07)
[2022-12-08] MEDS: Ibuprofen 600 MG TABLET PO (10:07)
--- NOTE | 2022-12-08 10:08 | P.PNGS_ITS ---
Subjective Subjective Date of Service: 12/08/22 Patient reports: still having pain and tolerating liquids well Interval history: The patient is seen with her partner at the bedside. The patient notes ongoing pain and notes the IV Dilaudid is not helping. We reviewed her home meds and she is not taking Toradol, nor does she have a prescription. Her partner notes that she has omeprazole, but the patient is unclear. The importance of taking this medicine daily in the setting since NSAIDs will be required to address her pain was reviewed and apparently understood. Patient denies any difficulty breathing or chest pain. She did tolerate clear liquids and is willing to try a low-fat diet. We discussed her itching and allergy from narcotics and given her likely undiagnosed sleep apnea, I am reticent to provide higher doses of a narcotics and she is reporting no benefit. She is at risk for airway occlusion. Explained this to her and her partner as well as the importance of having a sleep study as an outpatient. Physical Exam Vital Signs: Vital Signs: Last Vital Signs Temp 97.4 F 12/08/22 07:29 Pulse 75 12/08/22 07:29 Resp 20 12/08/22 07:29 BP 118/65 12/08/22 07:29 Pulse Ox 100 12/08/22 07:29 O2 Del Method Room Air 12/08/22 07:29 BMI result Body Mass Index 36.9 On exam she is nontoxic Sclera anicteric Abdomen is obese with appropriate incisional tenderness Objective Data Active Medications Acetaminophen (Acetaminophen 325 Mg Tablet) 975 mg PO Q6H [facility] Docusate Sodium (Docusate Sodium 100 Mg Capsule) 200 mg PO BID [facility] Last Admin: 12/08/22 07:38 Dose: 200 mg Documented By: CHRISTINE Fentanyl (Fentanyl Citrate/Pf 100 Mcg/2 Ml Vial) 50 mcg IVPUSH Q5M PRN; Protocol PRN Reason: Pain, Severe (Pain Scale 7-10) Hydromorphone HCl (Hydromorphone Hcl 0.5 Mg/0.5 Ml Syringe) 0.5 mg IVPUSH Q5M PRN; Protocol PRN Reason: Pain, Severe (Pain Scale 7-10) Hydromorphone HCl (Hydromorphone Hcl 0.5 Mg/0.5 Ml Syringe) 0.25 mg IVPUSH Q2H PRN; Protocol PRN Reason: Pain, Moderate(Pain Scale 4-6) Last Admin: 12/08/22 07:50 Dose: 0.25 mg Documented By: CHRISTINE Ibuprofen (Ibuprofen 600 Mg Tablet) 600 mg PO QID [facility] Levothyroxine Sodium (Levothyroxine Sodium 175 Mcg Tablet) 175 mcg PO DAILY@0600 [facility] Last Admin: 12/08/22 05:40 Dose: 175 mcg Documented By: KILEY Meclizine HCl (Meclizine Hcl 25 Mg Tablet) 25 mg PO TID PRN PRN Reason: dizziness Ondansetron HCl (Ondansetron Hcl 4 Mg/2 Ml Vial) 4 mg IVPUSH ONCE PRN PRN Reason: Nausea and Vomiting Ondansetron HCl (Ondansetron Hcl 4 Mg/2 Ml Vial) 4 mg IVPUSH Q6H PRN PRN Reason: Nausea and Vomiting Labs 12/08/22 06:13 12/08/22 06:13 Labs: Laboratory Results - last 24 hr 12/08/22 12/08/22 06:13 06:13 MCV 81.1 MCH 26.0 L MCHC 32.1 RDW 15.1 Plt Count 280 D MPV 11.6 Immature Gran % (Auto) 0.4 Neut % (Auto) 76.3 H Lymph % (Auto) 17.5 L [place] % (Auto) 5.0 Eos % (Auto) 0.4 Baso % (Auto) 0.4 Lymph # (Auto) 2.5 [place] # (Auto) 0.7 Eos # (Auto) 0.1 Baso # (Auto) 0.1 Abs Immat Gran (auto) 0.06 H Absolute Neuts (auto) 10.7 H Absolute Nucleated RBC 0.000 Nucleated RBC % (auto) 0.0 Anion Gap 10 L Estim Creat Clear Calc 108.1 Estimated GFR > 60 Random Glucose 103 Calcium 8.6 D Total Bilirubin 0.7 AST 33 H ALT 41 H Alkaline Phosphatase 77 Total Protein 6.6 Albumin 3.8 Hemoglobin drift is likely dilutional given that her BUN is down to 8 Procedures Date of Service Date of Service: 12/08/22 Progress Note: A&P Assessment and plan (1) S/P laparoscopic cholecystectomy: Status: Acute (2) Acute calculous cholecystitis: Status: Acute (3) Microcytic anemia: Status: Acute (4) Obese: Status: Acute (5) Smoker: Status: Acute (6) Hypothyroid: Status: Acute Plan I have ordered Tylenol and oral ibuprofen to be administered to the other every 6 hours in an attempt to control the patient's pain. If this is satisfactory and she tolerates liquids, she could be discharged later. Instructions regarding diet and activity reviewed and apparently understood. If we are unable to control the patient's pain, she will need to be kept in the hospital and I will adjust medications accordingly. Time Spent With Patient Time: Total time managing care of this patient today ____ minutes. Quality Stroke Does the patient have a stroke diagnosis?: No VTE Prior VTE?: No VTE Risk Level:: Surgical - moderate VTE Device Contraindication: N/A - Device Ordered VTE Drug Contraindication: Treatment Not Indicated
--- NOTE | 2022-12-08 12:25 | P.DS_ITS ---
DS: Providers Provider Date of Service: 12/08/22 Date of admission: 12/07/22 12:30 Primary care physician: Adiel Villanueva PA-C Consults: 12/07/22 10:35 Consult to General Surgery Stat Consulting Provider[place] [facility] Reason for consultation: biliary colic, known stones Has provider been notified: Yes DS: Diagnosis Discharge Diagnosis (1) S/P laparoscopic cholecystectomy: Status: Acute (2) Acute calculous cholecystitis: Status: Acute (3) Microcytic anemia: Status: Acute (4) Obese: Status: Acute (5) Smoker: Status: Acute (6) Hypothyroid: Status: Acute DS: Summary Hospital Course Hospital Course: See H&P for details. 37y F w/ acute calculus cholecystitis who underwent lap haider 12/07/22. Pt tolerated liquids & low fat diet. Good analgesia with APAP/ibuprofen. D/C instructions re: activity & diet reviewed. Smoking cessation & sleep study d/w PCP recommended. Overall condition at the time of discharge: improved. Time spent discussing smoking cessation with patient: 3 to 10 minutes Time Spent with Patient Time attestation: Total time managing care of this patient today ____ minutes. Discharge coordination time: Less than 30 minutes Quality: Safe Use of Opioids Does Pt have an Active Cancer Diagnosis on the Problem List?: No Quality: Stroke Does the patient have a stroke diagnosis?: No Physical Exam Vital Signs: Vital Signs: Last Vital Signs Temp 97.4 F 12/08/22 07:29 Pulse 75 12/08/22 07:29 Resp 20 12/08/22 07:29 BP 118/65 12/08/22 07:29 Pulse Ox 100 12/08/22 07:29 O2 Del Method Room Air 12/08/22 07:29 BMI result Body Mass Index 36.9 DS: Data Data Completed and Pending Pending studies at discharge: Pending at discharge 12/07/22 16:44 Surgical [PTH] Routine Labs on day of discharge: Laboratory Results - last 24 hr 12/08/22 12/08/22 06:13 06:13 WBC 14.0 H RBC 3.92 L Hgb 10.2 L Hct 31.8 L MCV 81.1 MCH 26.0 L MCHC 32.1 RDW 15.1 Plt Count 280 D MPV 11.6 Immature Gran % (Auto) 0.4 Neut % (Auto) 76.3 H Lymph % (Auto) 17.5 L Beckham % (Auto) 5.0 Eos % (Auto) 0.4 Baso % (Auto) 0.4 Lymph # (Auto) 2.5 Beckham # (Auto) 0.7 Eos # (Auto) 0.1 Baso # (Auto) 0.1 Abs Immat Gran (auto) 0.06 H Absolute Neuts (auto) 10.7 H Absolute Nucleated RBC 0.000 Nucleated RBC % (auto) 0.0 Sodium 134 L Potassium 4.4 Chloride 106 Carbon Dioxide 22 Anion Gap 10 L BUN 8 L Creatinine 0.75 Estim Creat Clear Calc 108.1 Estimated GFR > 60 Random Glucose 103 Calcium 8.6 D Total Bilirubin 0.7 AST 33 H ALT 41 H Alkaline Phosphatase 77 Total Protein 6.6 Albumin 3.8 Discharge Plan Discharge Anticipated Discharge Date/Time: 12/08/22 12:11 Patient Disposition: Home, Self-Care Discharge Diagnosis: s/p lap haider 12/07/22 for acute calculus cholecystitis Referrals: Adiel Villanueva PA-C [Primary Care Provider] - 1 Week Goldy Mendoza MD [Physician] - 1 Week Discharge Medications: New ibuprofen 600 mg tablet 600 mg PO Q6H PRN (Reason: pain) Qty: 20 1RF Rx Instructions: take with 2 acetaminophen every 6 hours Continued fluticasone propionate [Flonase Allergy Relief] 50 mcg/actuation spray,suspension 1 spray intranasal DAILY 30 Days Qty: 16 3RF Rx Instructions: administer into each nostril levothyroxine 175 mcg tablet 175 mcg PO DAILY Qty: 90 2RF meclizine 25 mg tablet 25 mg PO TID PRN (Reason: dizziness) Qty: 14 0RF omeprazole 40 mg capsule,delayed release(DR/EC) 40 mg PO DAILY Qty: 30 0RF ferrous sulfate 325 mg (65 mg iron) tablet 325 mg PO DAILY PRN (Reason: MENSTURAL CYCLE) Discontinued ketorolac 10 mg Tablet 10 mg PO TID PRN (Reason: Pain) Discharge Orders: Discharge Order (Routine); Ordered 12/08/22 Ordered By: Goldy Mendoza Diet: Low Fat Activity on Discharge: No heavy lifting Stand Alone Forms: Patient Portal Discharge page Activity Restrictions/Additional Instructions: You had a laparoscopic cholecystectomy performed by Dr. Mendoza. It is normal to experience some neck or shoulder pain from the gas used to inflate your abdomen. It is also normal to have pain or discomfort in your abdomen/belly as well as at the trocar sites (small incisions). This discomfort will resolve over the next 1-3 days, however, if it gets progressively worse, if you should develop worsening pain, nausea, vomiting and cannot keep liquids down, chest pain, difficulty breathing or shortness of breath, fevers over 100F please report to the nearest emergency department. Unless otherwise directed by Dr. Mendoza, you should resume taking your regular medications. Due to your body habitus, obesity and snoring, you are at risk for a condition known as obstructive sleep apnea and should discuss a sleep study with your PCP. As Dr. Mendoza reviewed in the office, you must not lift more than 20 lb for the next 4 weeks. Strenuous activities can tear out your sutures and cause an incisional hernia that would require another operation. Activities to be avoided include: sports, running, bicycling, yoga, lifting more than 20 lb, digging, gardening, splitting/carrying wood, swimming, hiking uphill, and other activities. If you have questions regarding this specific activity, please check with Dr. Mendoza. If your incisions become red, swollen, tender or draining pus, please contact Dr. Mendoza or go to the nearest emergency department. Do not shower or bathe for 48 hours. You can shower tomorrow, 12/09/2022. Remove the Band-Aids before showering. Do not soak in a tub or swimming pool until your incisions have completely sealed, usually 2 or more weeks. After the dressings are removed in 48 hours, you will notice paper tapes called butterflies/Steri-Strips. These tapes will fall off on their own in 1-2 weeks. You do not need to apply another bandage unless your clothing irritates your incisions. If you need to place another Band-Aid on your incisions, be sure to wait until the Steri strip is dry. Purchase [id number] stool softener known as Colace/docusate, 100 mg. Take 2 tablets with breakfast and the morning and 2 tablets in the evening after dinner until your bowels are moving and urine or longer taking narcotics. Please note that if you are not taking narcotics, the general anesthesia for the procedure can still cause constipation. If you experience diarrhea, stop taking the stool softener medicine. You can take [id number] Tylenol/acetaminophen with prescription ibuprofen for pain. You should take omeprazole the purple pill daily until you are no longer taking pain medications. You should also use ice packs to the operative site to help minimize pain and swelling for the first 3 days, or as needed afterwards. Remember that the gallbladder helps to to digest fatty foods. If you eat fried foods; rich, creamy sauces; cheese; gravies or other such heavy, greasy foods, you will likely develop gas and bloating and diarrhea. To minimize this risk, eat a high protein, high-fiber, low-fat diet for the next few weeks. Care Plan Goals: Allow adequate healing Contact PCP for sleep study and follow-up Health Concerns: Allow adequate healing Contact PCP for sleep study and follow-up Plan of Treatment: Allow adequate healing Contact PCP for sleep study and follow-up Assessment: Acute calculous cholecystitis, status post lap haider
--- NOTE | 2022-12-08 12:37 | MHC.CM.PN ---
PT REPORTS SHE LIVES AT HOME WITH HER GIRLFRIEND AND IS INDEPENDENT WITH CARE PT HAS NO DME AND NO HOME SERVICES SHE IS EMPLOYED SHE PROVIDED HER HCP WHICH WAS COPIED AND PLACED ON FILE PTS GF IS HER HCP AGENT SHE IS COVID [employer] PCP: AMBER DAVENPORT PT WILL DC HOME TODAY WITH NO SERVICES VIA PRIVATE TRANSPORT
== END 2022-12-08 13:05 | disposition home or self-care (01) | DRG 419 ==
LOC: HO.ED 12:15 → HO.EDOVER 13:35 → HO.S3 17:11
PROVIDERS: Admitting Provider Surgery; Emergency Provider Emergency Medicine; PCP Physician Assistant; Visit Provider Surgery
PROC: 0FT44ZZ Resection of Gallbladder, Percutaneous Endoscopic Approach (ICD-10-PCS; CPT 47562; principal; 2022-12-07 14:30)
DX: K80.00 Calculus of gallbladder with acute cholecystitis without obstruction (principal); K82.8 Other specified diseases of gallbladder; E03.9 Hypothyroidism, unspecified; E66.9 Obesity, unspecified; D50.9 Iron deficiency anemia, unspecified; Z79.890 Hormone replacement therapy; Z79.899 Other long term (current) drug therapy
CPT/HCPCS: 36415; 76705; 80053; 83690; 85025; 88304; 99284; J0131; J0690; J1170; J1885; J2270; J2405; J3010

== ENCOUNTER → 2022-12-10 15:05 | Outpatient (BNVA) | payer OTHER, MEDICAID, SELFPAY | PROVIDERS: PCP Physician Assistant; Visit Provider Surgery ==

== ENCOUNTER → 2022-12-18 14:52 | Outpatient (BNVA) | payer OTHER, MEDICAID, SELFPAY | PROVIDERS: PCP Physician Assistant; Visit Provider Surgery ==

== ENCOUNTER 2022-12-23 22:40 | Emergency (ER) | payer OTHER, MEDICAID, SELFPAY ==
[2022-12-23 22:50] VITALS: BP 122/69; PULSE 70; RESP 20; TEMP 37.2; O2SAT 99; BMI 36.9
[2022-12-24 00:42] VITALS: BP 102/63; PULSE 63; RESP 16; TEMP 36.8; O2SAT 98
--- NOTE | 2022-12-24 00:58 | MHC.EDTECH ---
This senior underwriter assumed care of this patient at 0043. Patient states she had gallbladder surgery last week, she wants to know when Dr. Mendoza will be arriving. I asked patient if she called him she states she did not. This senior underwriter explained that she would have to see our provider first and if they thought it was necessary they would call her surgeon. The patient stated she did not like the numbers for her blood pressure so at this time BP was repeated. patient agreeable to those numbers. Patient changed into rita and resting comfortably at this time.
--- NOTE | 2022-12-24 01:02 | ECG_ITS ---
Test Reason : ABD PAIN Blood Pressure : / mmHG Vent. Rate : 057 BPM Atrial Rate : 057 BPM P-R Int : 160 ms QRS Dur : 086 ms QT Int : 426 ms P-R-T Axes : 032 020 010 degrees QTc Int : 414 ms Sinus bradycardia Cannot rule out Anterior infarct (cited on or before 23-MAR-2021) Abnormal ECG When compared with ECG of 29-SEP-2021 10:19, No significant change was found Referred By: Gene Murrell Electronically Signed By:MARLA BRADSHAW MD
--- NOTE | 2022-12-24 01:25 | ED.GENADULT ---
HPI - General Adult General Chief complaint: General Medical Stated complaint: Previous surgery/having pain Time Seen by Provider: 12/24/22 00:54 Source: patient, RN notes reviewed and old records reviewed Mode of arrival: ambulatory Limitations: no limitations History of Present Illness HPI narrative: 37-year-old female with past medical history significant for obesity, sleep apnea, recent cholecystectomy on 12/07/2022, presenting for evaluation of left upper abdominal pain. Patient had a cholecystectomy with Dr. Mendoza due to acute cholecystitis Her pain was not well controlled with ibuprofen and Tylenol. She had follow-up on 12/18/2022. She was then prescribed tramadol for her increasing pain Patient states that her pain was right-sided mostly but today she developed left upper abdominal pain that has been present all day today. Her pain is currently mild, 4/10 but is different than the pain she was experiencing previously She has been having normal bowel movements She denies any fevers, chills No other complaints or concerns at this time She does report a remote history of appendectomy no other abdominal surgery Related Data Home Medications Medication Instructions Recorded Confirmed ferrous sulfate 325 mg (65 mg 325 mg PO DAILY PRN MENSTURAL CYCLE 12/07/22 12/18/22 iron) tablet Previous Rx's Medication Instructions Recorded meclizine 25 mg tablet 25 mg PO TID PRN dizziness #14 tabs 09/29/21 fluticasone propionate 50 1 spray intranasal DAILY 30 days 01/30/22 mcg/actuation nasal #16 grams spray,suspension (Flonase Allergy Relief) levothyroxine 175 mcg tablet 175 mcg PO DAILY #90 tabs 06/18/22 omeprazole 40 mg capsule,delayed 40 mg PO DAILY #30 caps 09/29/22 release ibuprofen 600 mg tablet 600 mg PO Q6H PRN pain #20 tabs 12/08/22 tramadol 50 mg tablet 50 mg PO Q6H PRN pain #20 tabs 12/10/22 Allergies Allergy/AdvReac Type Severity Reaction Status Date / Time sulfamethoxazole Allergy Intermediate Rash all Verified 12/18/22 14:59 [From Bactrim] over body, swelling & redness in face trimethoprim [From Bactrim] Allergy Intermediate Rash all Verified 12/18/22 14:59 over body, swelling & redness in face prednisone AdvReac Intermediate night Verified 12/18/22 14:59 sweats oxycodone [OxyContin] AdvReac Unknown itchiness Verified 12/18/22 14:59 Review of Systems Constitutional: Constitutional: Denies chills, Denies fever(s) and Denies frequent falls Cardiovascular: Cardiovascular: Denies chest pain and Denies dyspnea Respiratory: Respiratory: Denies cough and Denies dyspnea Gastrointestinal: Gastrointestinal: Reports abdominal pain, Denies nausea and Denies vomiting Neurologic: Denies frequent falls PMFSH Past Medical History Surgical History History of appendectomy S/P LASIK surgery Family History Family History Father Medical history unknown Mother Hypertension Hyperlipidemia Thyroid disease Sister Hypothyroid Family/Other Diabetes Social History Social History Household Members: Friend(s) Housing: Apartment Do you presently have visiting nurse or other home services: No Alcohol intake: unknown Patient Tobacco Use Status: Never used Tobacco Second Hand Smoke Exposure: No Advance Directives: No Advance Directives Information Provided: No service: No Current occupational status: employed Cognitive needs: No Hearing needs: No Vision needs: Yes Physical Exam ED Vital Signs: Vital Signs - 24 hr 12/23/22 22:50 12/24/22 00:42 Temperature 99.0 F 98.3 F Pulse Rate 70 63 Respiratory Rate 20 16 Blood Pressure 122/69 102/63 Pulse Oximetry 99 98 Oxygen Delivery Method Room Air Room Air BMI result Body Mass Index 36.9 Const General: healthy appearing, comfortable, no acute distress, alert and awake Nutritional Appearance: well nourished Orientation/consciousness: patient oriented x3 HENMT Head: Yes normocephalic and Yes atraumatic Eyes Eyelids: Yes eyelids normal Conjunctivae: conjunctivae normal Sclerae: sclerae normal Corneas: corneas normal Pupils: Equal, round and reactive pupils present EOM: EOMs intact bilaterally Neck Neck: Yes full ROM Resp Effort & Inspection: normal respiratory effort, able to speak in complete sentences, no audible wheezes and not labored Auscultation: clear to auscultation bilaterally Cardio Rate: regular rate Rhythm: regular rhythm GI Other: Patient's surgical incision left upper quadrant appears to be well healed. There is no palpable underlying masses. No significant rebound or guarding. Inspection: No distended and Yes obesity Palpation (GI): Soft to palpation, not firm, Tenderness to palpation present (GI) in the LUQ, no guarding and not rigid Auscultation: normoactive bowel sounds Skin General skin exam: no rashes or lesions noted and elasticity normal Neuro General: patient oriented x3 Cranial nerves: Yes Equal, round and reactive pupils present and Yes Bilaterally intact EOM present Cognition (Neuro): normal cognition Extrem Other: Moving all extremities well without any obvious deformities Medical Decision Making Medical Decision Making MDM Narrative: [age] female presents for evaluation of left upper abdominal pain to have weeks after a cholecystectomy. At this point is less likely be an abscess. I do not palpate any incisional hernia on exam. The patient her pain is mild at this time and declines analgesia. She is very adamant that she would like imaging obtained to evaluate for incisional hernia. I explained I feel this is less likely history is no hernia on exam. Discuss risks and benefits of CT imaging including ionizing radiation with the patient which like to go through with CT scan. Labs are pending at this time. 0321: I reviewed all investigations and my interpretation is that the discomfort is well within normal healing process there are no acute findings to suggest occult infection, hernia. I discussed all results with the patient at bedside and she pointed to 1 of the laparoscopic sites that appear to be healing well no evidence of erythema or induration, patient denies any significant lifting of heavy objects but points out that she has been engaged in vigorous sexual activity hand I pointed out to the patient that this may have resulted in subsequent discomfort. I did reassure her that I do not suspect an significant injury at this time. She is being discharged home with resumption of her prescribed medications and instructed to follow-up with Dr. Mendoza's office on Saturday. Differential Diagnosis Postop pain Incisional hernia Ventral hernia Intra-abdominal abscess less likely Adhesions Obstipation Lab Data 12/24/22 01:48 12/24/22 01:48 Labs: Lab Results 12/24/22 12/24/22 12/24/22 Range/Units 01:48 01:48 01:48 WBC 12.5 H (4.8-10.8) X10*3/uL RBC 3.67 L (4.20-5.50) X10*6/uL Hgb 9.5 L (12.0-16.0) g/dl Hct 29.7 L (37.0-47.0) % MCV 80.9 (80.0-98.0) fL MCH 25.9 L (27.0-33.0) pg MCHC 32.0 (31.0-35.0) g/dl RDW 15.1 (11.0-16.0) % Plt Count 343 (160-400) X10*3/uL MPV 10.9 (9.4-12.3) fL Immature Gran % (Auto) 0.2 (0.0-0.4) % Neut % (Auto) 61.2 (45-73) % Lymph % (Auto) 30.2 (20-40) % Dickens % (Auto) 4.8 (2-11) % Eos % (Auto) 3.1 (0-4) % Baso % (Auto) 0.5 (0-2) % Lymph # (Auto) 3.8 (1.2-4.9) X10*3/uL Dickens # (Auto) 0.6 (0.1-1.2) X10*3/uL Eos # (Auto) 0.4 (0.0-0.4) X10*3/uL Baso # (Auto) 0.1 (0.0-0.2) X10*3/uL Abs Immat Gran (auto) 0.03 (0.00-0.03) X10*3/uL Absolute Neuts (auto) 7.7 (2.0-8.3) x10*3/uL Absolute Nucleated RBC 0.000 (0.0-0.012) X10*3/uL Nucleated RBC % (auto) 0.0 (0.0-0.2) /100WBC Sodium 138 (135-145) mmol/L Potassium 3.8 (3.3-5.1) mmol/L Chloride 107 (96-108) mmol/L Carbon Dioxide 22 (22-29) mmol/L Anion Gap 13 (12-20) BUN 18 H (9-16) mg/dL Creatinine 0.79 (0.5-1.4) mg/dL Estim Creat Clear Calc 102.7 Estimated GFR > 60 Random Glucose 112 (60-115) mg/dL Calcium 9.1 (8.4-10.2) mg/dL Total Bilirubin 0.2 (0.0-1.0) mg/dL AST 11 (5-31) U/L ALT 14 (0-31) U/L Alkaline Phosphatase 67 (39-117) U/L Troponin I High Sens 5.7 (<3.5-17.0) ng/L Total Protein 6.8 (6.5-8.0) g/dL Albumin 3.8 (3.5-5.0) g/dL Lipase 16 (8-78) U/L Discharge Plan Discharge Clinical Impression: Abdominal pain, Postop check Patient Disposition: Home, Self-Care Instructions: Abdominal Pain (ED) Additional Instructions: Your blood work was reassuring today Your physical exam is not concerning for incisional abscess or incisional hernia. There are no palpable masses. It is also likely too far after your surgery to be experiencing an abscess at this time Continue taking you Tramadol as prescribed Call Dr Mendoza to schedule follow up Prescriptions: No Action fluticasone propionate [Flonase Allergy Relief] 50 mcg/actuation spray,suspension 1 spray intranasal DAILY 30 Days Qty: 16 3RF Rx Instructions: administer into each nostril levothyroxine 175 mcg tablet 175 mcg PO DAILY Qty: 90 2RF meclizine 25 mg tablet 25 mg PO TID PRN (Reason: dizziness) Qty: 14 0RF omeprazole 40 mg capsule,delayed release(DR/EC) 40 mg PO DAILY Qty: 30 0RF ferrous sulfate 325 mg (65 mg iron) tablet 325 mg PO DAILY PRN (Reason: MENSTURAL CYCLE) ibuprofen 600 mg tablet 600 mg PO Q6H PRN (Reason: pain) Qty: 20 1RF Rx Instructions: take with 2 acetaminophen every 6 hours tramadol 50 mg tablet 50 mg PO Q6H PRN (Reason: pain) Qty: 20 0RF Rx Instructions: 1-2 tablets every 6 hours if needed for pain Stand Alone Forms: Work/School Release
[2022-12-24 01:53] LABS: Basophils Absolute Auto 0.1 X10*3/uL (0.0-0.2); Basophils Percent Auto 0.5 % (0-2); Eosinophils Absolute Auto 0.4 X10*3/uL (0.0-0.4); Eosinophils Percent Auto 3.1 % (0-4); Hematocrit 29.7 % (37.0-47.0); Hemoglobin 9.5 g/dl (12.0-16.0); Imm Gran Abs Auto 0.03 X10*3/uL (0.00-0.03); Imm Gran Pct Auto 0.2 % (0.0-0.4); Lymphocytes Absolute Auto 3.8 X10*3/uL (1.2-4.9); Lymphocytes Percent Auto 30.2 % (20-40); MANUAL DIFF FLAG NO; Mean Corpuscular Hemoglobin 25.9 pg (27.0-33.0); Mean Corpuscular Volume 80.9 fL (80.0-98.0); Mean Platelet Volume 10.9 fL (9.4-12.3); Monocytes Absolute Auto 0.6 X10*3/uL (0.1-1.2); Monocytes Percent Auto 4.8 % (2-11); Neutrophils Absolute Auto 7.7 x10*3/uL (2.0-8.3); Neutrophils Percent Auto 61.2 % (45-73); Platelet Count 343 X10*3/uL (160-400); Red Blood Count 3.67 X10*6/uL (4.20-5.50); Red Cell Distribution Width 15.1 % (11.0-16.0); White Blood Count 12.5 X10*3/uL (4.8-10.8)
[2022-12-24 02:09] LABS: Alanine Aminotransferase 14 U/L (0-31); Albumin Level 3.8 g/dL (3.5-5.0); Alkaline Phosphatase 67 U/L (39-117); Anion Gap 13 (12-20); Aspartate Amino Transferase 11 U/L (5-31); Bilirubin Total 0.2 mg/dL (0.0-1.0); Blood Urea Nitrogen 18 mg/dL (9-16); Calcium 9.1 mg/dL (8.4-10.2); Carbon Dioxide 22 mmol/L (22-29); Chloride 107 mmol/L (96-108); Creatinine Clr Calc Pharmacy 102.7; Estimated Glomerular Filt Rate > 60; Glucose Random 112 mg/dL (60-115); Lipase 16 U/L (8-78); Potassium 3.8 mmol/L (3.3-5.1); Sodium 138 mmol/L (135-145); Total Protein 6.8 g/dL (6.5-8.0)
[2022-12-24 02:12] LABS: Troponin-I High Sensitivity 5.7 ng/L (<3.5-17.0)
[2022-12-24 03:50] VITALS: BP 119/53; PULSE 65; RESP 16; TEMP 36.9; O2SAT 97
--- NOTE | 2022-12-24 03:54 | PC.NURSE ---
late entry- pt reports continued questions wishing to speak further with provider. this rn made dr branham aware of pt request. to pt bedside
--- NOTE | 2022-12-24 03:55 | PC.NURSE ---
pt up for discharge. vss. pt ambulatory at discharge. pt provided with discharge plan and work note. pt verbalized understanding of discharge plan. pt significant other at bedside
== END 2022-12-24 03:57 | disposition home or self-care (01) ==
PROVIDERS: Physician Assistant; Emergency Provider Student in an Organized Health Care Education/Training Program
DX: R10.12 Left upper quadrant pain (principal); G89.18 Other acute postprocedural pain; R00.1 Bradycardia, unspecified; Z79.899 Other long term (current) drug therapy
CPT/HCPCS: 36415; 80053; 83690; 84484; 85025; 93005; 99283; 99284

== ENCOUNTER → 2023-01-01 14:27 | Outpatient (BNVA) | payer OTHER, MEDICAID, SELFPAY | PROVIDERS: PCP Physician Assistant; Visit Provider Surgery ==

== ENCOUNTER 2023-03-05 14:20 | Outpatient (AMB) | payer OTHER, MEDICAID, SELFPAY ==
[2023-03-05 14:48] VITALS: BP 92/60; PULSE 74; O2SAT 94; BMI 37.1
--- NOTE | 2023-03-05 14:48 | A.OFFVIS_ITS ---
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 Allergies sulfamethoxazole [From Bactrim] Allergy (Intermediate, Verified 03/05/23 16:05) Rash all over body, swelling & redness in face trimethoprim [From Bactrim] Allergy (Intermediate, Verified 03/05/23 16:05) Rash all over body, swelling & redness in face prednisone Adverse Reaction (Intermediate, Verified 03/05/23 16:05) night sweats oxycodone [OxyContin] Adverse Reaction (Unknown, Verified 03/05/23 16:05) itchiness Medication List - Last Reconciled 03/05/23 by Fei Laura MD ferrous sulfate 325 mg PO DAILY PRN fluticasone propionate 50 mcg/actuation (Flonase Allergy Relief) 1 spray intranasal DAILY 30 days ibuprofen 600 mg PO Q6H PRN levothyroxine 175 mcg PO DAILY meclizine 25 mg PO TID PRN omeprazole 40 mg PO DAILY PRN tramadol 50 mg PO Q6H PRN Do you need a note to return to daycare/school/sports/work: No HPI Snoring HPI Details This 37 years old female is being seen for the 1st time, referred to be evaluated for sleep apnea. He has history of weight gain in the last 7-8 years, along with tiredness. She was found to have hypothyroidism which has been treated. But in spite of that she has not been able to lose weight. She has symptoms of loud snoring at night, her sleep is interrupted by. Frequent awakenings She wakes up in the morning un-refreshed, and she remains very tired and sleepy during the whole day. She tends to fall asleep if she is sitting in the chair, especially in the afternoon. She doses of if she starts reading any broke or if she watches TV. Over the past few years the symptoms are becoming more regular and persistent. . 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 [facility] Medical History Obesity (BMI 30-39.9) Somnolence, daytime Surgical History History of appendectomy S/P LASIK surgery Family History Father Medical history unknown Mother Hypertension Hyperlipidemia Thyroid disease Sister Hypothyroid Family/Other Diabetes Social History Household Members: Friend(s) Housing: Apartment Do you presently have visiting nurse or other home services: No Alcohol intake: unknown Patient Tobacco Use Status: Former Tobacco user Second Hand Smoke Exposure: No service: No Current occupational status: employed Cognitive needs: No Hearing needs: No Vision needs: Yes Review of Systems Const All systems reviewed & are unremarkable except as noted in HPI and below Reports snoring Eyes Reports no additional complaints ENT Reports no additional complaints Card Denies chest pain, Denies syncope, Denies irregular heart rhythm, Denies leg edema and Reports dyspnea on exertion Resp Denies cough, Reports dyspnea on exertion, Reports snoring and Denies wheezing GI Reports no additional complaints Reports no additional complaints Musc Reports no additional complaints Skin/Breast Reports system reviewed and no additional complaints, except as documented Neuro Reports no additional complaints and Denies syncope Psych Reports no additional complaints Endo Reports other (Hypothyroidism being treated) Aller/Immun Denies wheezing and Reports other (Has mild allergic rhinitis which is controlled with Flonase spray as needed) Physical Exam Vital Signs: Last Vital Signs Pulse 74 03/05/23 14:48 BP 92/60 03/05/23 14:48 Pulse Ox 94 03/05/23 14:48 Oxygen Delivery Method Room Air 03/05/23 14:48 BMI result Body Mass Index 37.1 Const General: healthy appearing (Except for being overweight), comfortable, no acute distress, alert and awake Orientation/consciousness: patient oriented x3 HEENT Head: Yes normal to inspection General nose exam: No nasal polyps present and No nasal discharge present Face and sinus: Yes sinuses nontender Mouth: oropharynx abnormals (Oropharynx is narrow and crowded, Mallampati class 3) Throat: Yes posterior oropharynx normal Eyes General: appearance normal, both eyes and all related structures Neck Neck: Yes normal visual inspection, Yes no lymphadenopathy, Yes trachea midline, Yes no JVD and Yes other (Neck circumference 17 in) Thyroid: Thyroid normal Chest Chest palpation & inspection: normal inspection of the chest, normal palpation of entire chest wall and no tenderness Resp Effort & Inspection: normal respiratory effort Auscultation: clear to auscultation bilaterally, no crackles and no wheezes Cardio Palpation: normal PMI Rate: regular rate Rhythm: regular rhythm Heart sounds: no gallops and no murmurs Peripheral pulses: Peripheral pulses 2+ throughout GI Palpation (GI): Soft to palpation, nontender, No hepatosplenomegaly present, no masses and Other GI palpation findings present (Abdomen is moderately obese and protuberant) Auscultation: normal bowel sounds Back/Spine/Pelvis Thoracic/Lumbar Spine: thoracic and lumbar spine normal to inspection Skin General skin exam: no rashes or lesions noted Neuro General: patient oriented x3 and no focal motor deficits Cranial nerves: Yes CN's II-XII intact bilaterally Extrem General: Yes normal to inspection, Yes no clubbing, cyanosis or edema and Yes no calf tenderness Psych Appearance: grossly normal and well kempt Speech and movement: Normal speech and movement present Assessment & Plan Assessment & Plan (1) Obesity (BMI 30-39.9): Comment: Patient is grossly obese. She has been grossly over weight in the last 7-8 years. Has a round face short and narrow neck. Facial features are typical of a% with sleep apnea Code(s): E66.9 - Obesity, unspecified (2) Somnolence, daytime: Comment: Has longstanding history of daytime fatigue and sleepiness. ESS= 15/24 Code(s): R40.0 - Somnolence (3) Snoring: Comment: Loud snoring as expected., suggestive of sleep apnea Code(s): R06.83 - Snoring (4) Smoker: Comment: Patient has past history of smoking but quit in 2019. Code(s): F17.200 - Nicotine dependence, unspecified, uncomplicated (5) Hypothyroid: Comment: Found to have hypothyroidism back about 7-8 years ago and has been on thyroid replacement therapy. Code(s): E03.9 - Hypothyroidism, unspecified Qualifiers: Hypothyroidism type: unspecified Qualified Code(s): E03.9 - Hypothyroidism, unspecified Orders: Orders RT home sleep study Today E66.9 - Obesity, unspecified, R06.83 - Snoring, R40.0 - Somnolence Medications: Discontinued ferrous sulfate 325 mg PO DAILY 90 tabs 1RF D50.9 - Iron deficiency anemia, unspecified Coding Level of Care Code New Pt Level 4 (35646) Diagnoses Obesity (BMI 30-39.9) E66.9 Somnolence, daytime R40.0 Snoring R06.83 Smoker F17.200 Hypothyroid E03.9 Hypothyroidism type: unspecified
== END 2023-03-05 15:34 | disposition home or self-care (01) ==
PROVIDERS: PCP Physician Assistant; Visit Provider Internal Medicine
DX: E66.9 Obesity, unspecified (principal); R40.0 Somnolence; R06.83 Snoring; F17.200 Nicotine dependence, unspecified, uncomplicated; E03.9 Hypothyroidism, unspecified
CPT/HCPCS: 99204

== ENCOUNTER → 2023-03-05 14:20 | Outpatient (BNVA) | payer OTHER, MEDICAID, SELFPAY | PROVIDERS: PCP Physician Assistant; Visit Provider Internal Medicine ==

== ENCOUNTER 2023-03-22 11:30 | Outpatient (REF) | payer OTHER, MEDICAID, SELFPAY ==
[2023-03-22 13:54] LABS: Hemoglobin 11.3 g/dl (12.0-16.0); Mean Corpuscular HGB Conc 31.4 g/dl (31.0-35.0); Mean Corpuscular Hemoglobin 25.8 pg (27.0-33.0); Mean Corpuscular Volume 82.2 fL (80.0-98.0); Mean Platelet Volume 11.5 fL (9.4-12.3); Platelet Count 398 X10*3/uL (160-400); Red Blood Count 4.38 X10*6/uL (4.20-5.50); Red Cell Distribution Width 14.8 % (11.0-16.0); White Blood Count 10.3 X10*3/uL (4.8-10.8)
[2023-03-22 14:53] LABS: Alanine Aminotransferase 14 U/L (0-31); Albumin Level 4.3 g/dL (3.5-5.0); Alkaline Phosphatase 76 U/L (39-117); Anion Gap 15 (12-20); Aspartate Amino Transferase 14 U/L (5-31); Blood Urea Nitrogen 9 mg/dL (9-16); Calcium 9.6 mg/dL (8.4-10.2); Carbon Dioxide 23 mmol/L (22-29); Chloride 103 mmol/L (96-108); Estimated Glomerular Filt Rate > 60; Glucose Fasting 86 mg/dL (60-99); Iron 21 mcg/dL (30-160); Percent Iron Saturation 8 % (15-50); Sodium 137 mmol/L (135-145); TSH reflex Free T4 1.28 uIU/mL (0.32-4.0); Total Iron Binding Capacity 260 mcg/dL (228-428); Unsaturated Iron Binding 239 ug/dL
[2023-03-22 15:20] LABS: Bilirubin Total 0.4 mg/dL (0.0-1.0)
== END 2023-03-22 11:31 | disposition home or self-care (01) ==
LOC: HO.LAB 11:30
PROVIDERS: PCP Physician Assistant; Visit Provider Physician Assistant
DX: Z13.1 Encounter for screening for diabetes mellitus (principal); D50.9 Iron deficiency anemia, unspecified; E03.9 Hypothyroidism, unspecified
CPT/HCPCS: 36415; 80053; 83540; 84443; 85027

== ENCOUNTER 2023-04-03 14:46 | Outpatient (AMB) | payer OTHER, MEDICAID, SELFPAY ==
[2023-04-03 14:51] VITALS: BP 102/70; PULSE 75; O2SAT 98; BMI 37.5
--- NOTE | 2023-04-03 14:51 | MHC.PC.OV ---
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 Accompanied by: Self / Same As Patient Allergies sulfamethoxazole [From Bactrim] Allergy (Intermediate, Verified 04/03/23 15:20) Rash all over body, swelling & redness in face trimethoprim [From Bactrim] Allergy (Intermediate, Verified 04/03/23 15:20) Rash all over body, swelling & redness in face prednisone Adverse Reaction (Intermediate, Verified 04/03/23 15:20) night sweats oxycodone [OxyContin] Adverse Reaction (Unknown, Verified 04/03/23 15:20) itchiness Medication List - Last Reconciled 04/03/23 by Adiel Villanueva PA-C ferrous sulfate 325 mg PO DAILY PRN fluticasone propionate 50 mcg/actuation (Flonase Allergy Relief) 1 spray intranasal DAILY 30 days ibuprofen 600 mg PO Q6H PRN levothyroxine 175 mcg PO DAILY meclizine 25 mg PO TID PRN Tobacco use date assessed: 04/03/23 HPI Post Gallbladder surgery HPI Details Patient is a 37-year-old female here today for follow-up visit. Patient's past medical history significant for obesity, anemia, hypothyroidism. She did have recent hospital admission requiring a cholecystectomy. Since her cholecystectomy her bowel movements have been more frequent and softer. Concern--> she does history of an internal carotid stenosis incident leave found a hospital admission. She has ever since been on aspirin for this. She would like to follow-up with vascular specialist. .. Hypothyroidism: Most recent TSH stable, continues on levothyroxine 175 mcg with good effect. .. Anemia: Has been stable and trending up with the use of iron supplementation. [facility] Medical History (Updated 04/03/23 @ 15:45 by Adiel Villanueva PA-C) Somnolence, daytime Obesity (BMI 30-39.9) Surgical History (Updated 04/03/23 @ 15:44 by Adiel Villanueva PA-C) S/P laparoscopic cholecystectomy S/P LASIK surgery History of appendectomy Family History Father Medical history unknown Mother Hypertension Hyperlipidemia Thyroid disease Sister Hypothyroid Family/Other Diabetes Social History Household Members: Friend(s) Housing: Apartment Do you presently have visiting nurse or other home services: No Alcohol intake: unknown Patient Tobacco Use Status: Former Tobacco user e-Cigarette/Vaping Use: Never Used Second Hand Smoke Exposure: No service: No Current occupational status: employed Cognitive needs: No Hearing needs: No Vision needs: Yes Questionnaire Thrive Questionnaire Date Thrive assessed: 10/25/21 BROCK-7 AMB Questionnaire BROCK-7 Date BROCK - 7 assessed: 10/25/21 Source: Developed by Drs. Vinh Rowell, Sharon Calles, Kory Jett and colleagues, with an educational lane from [employer]. Review of Systems Const Denies headache(s) Eyes Denies loss of vision ENT Denies vertigo, Denies dizziness, Denies headache(s) and Denies sore throat Card Denies chest pain, Denies leg edema and Denies lightheadedness Resp Denies cough, Denies hemoptysis and Denies wheezing GI Denies abdominal pain, Denies melena, Denies constipation, Denies diarrhea and Denies vomiting Denies urinary frequency, Denies dysuria and Denies urinary urgency Musc Denies arthralgias, Denies joint swelling, Denies numbness and Denies tingling Neuro Denies Abnormal speech present, Denies behavioral changes, Denies vertigo, Denies dizziness, Denies headache(s), Denies loss of vision, Denies memory loss, Denies numbness and Denies tingling Psych Denies anxiety, Denies behavioral changes, Denies depression, Denies memory loss and Denies panic attacks Jeremy/Lymph Denies easy bleeding and Denies easy bruising Aller/Immun Denies wheezing Physical exam (Primary Care) Vital Signs: Last Vital Signs Pulse 75 04/03/23 14:51 BP 102/70 04/03/23 14:51 Pulse Ox 98 04/03/23 14:51 Oxygen Delivery Method Room Air 04/03/23 14:51 BMI result Body Mass Index 37.5 BMI Assessment/Plan discussion: High Tobacco/Smoking Status: Tobacco use Status Tobacco use date assessed 04/03/23 04/03/23 15:03 Patient Tobacco Use Status Former Tobacco user 04/03/23 14:52 e-Cigarette/Vaping Use Never Used 04/03/23 15:03 Thrive Assessment: Date of Thrive Assessment Date Thrive assessed 10/25/21 04/03/23 14:52 Const Other: OBESE General: healthy appearing, no acute distress, alert and awake Nutritional Appearance: well nourished Orientation/consciousness: oriented to person, oriented to place and oriented to time HENMT Ears: TM's normal bilaterally General nose exam: Normal nasal mucous membranes and turbinates present Eyes Conjunctivae: conjunctivae normal Sclerae: sclerae normal Pupils: Equal, round and reactive pupils present Neck Neck: Yes no lymphadenopathy and Yes no JVD Thyroid: Thyroid normal Carotids: no bruits Resp Effort & Inspection: normal respiratory effort and not tachypneic Auscultation: no crackles, no rales, no rhonchi and no wheezes Cardio Rate: regular rate Rhythm: regular rhythm Heart sounds: no murmurs and normal S1 and S2 GI Palpation (GI): Soft to palpation, nontender, no hepatomegaly and no splenomegaly Auscultation: normal bowel sounds Skin General skin exam: no rashes or lesions noted and dry skin Neuro General: oriented to person, oriented to place and oriented to time Cranial nerves: Yes Equal, round and reactive pupils present Speech: No Abnormal speech present Gait exam (Neuro): Normal gait present Motor exam (neuro): no tremor noted Extrem Right upper extremity: full ROM Left upper extremity: full ROM Right lower extremity: full ROM; no edema Left lower extremity: full ROM; no edema Psych Mental Status: mental status grossly normal Speech and movement: Normal speech and movement present Affect: normal affect Attitude: cooperative Thought process: Normal thought process present Assessment and Plan Assessment & Plan (1) Hypothyroid: Comment: Found to have hypothyroidism back about 7-8 years ago and has been on thyroid replacement therapy. Code(s): E03.9 - Hypothyroidism, unspecified Qualifiers: Hypothyroidism type: unspecified Qualified Code(s): E03.9 - Hypothyroidism, unspecified Plan: Patient's most recent TSH has been stable. Will continue her current dose of levothyroxine 175 mcg (2) Carotid stenosis, left: Code(s): I65.22 - Occlusion and stenosis of left carotid artery Plan: Patient with history of carotid stenosis incidentally found years ago at a hospital admission. Would like continued follow-up. (3) Obese: Code(s): E66.9 - Obesity, unspecified Qualifiers: Body mass index: BMI 40.0-44.9 Obesity classification: adult class 3 (BMI >= 40) Obesity type: due to excess calories Serious obesity comorbidity presence: without serious comorbidity Qualified Code(s): E66.01 - Morbid (severe) obesity due to excess calories; Z68.41 - Body mass index [BMI]40.0-44.9, adult Plan: Patient does understand her BMI is over 30 will work on being more physically active and adapting to better eating habits to reduce her weight (4) Anemia: Code(s): D64.9 - Anemia, unspecified Qualifiers: Anemia type: iron deficiency Iron deficiency anemia type: unspecified iron deficiency Qualified Code(s): D50.9 - Iron deficiency anemia, unspecified Plan: Patient has a chronic microcytic anemia. Has not been able to tolerate some iron supplementation will try slow Fe to help reduce GI side effects. Orders: Referrals Vascular Surgery Referral I65.22 - Occlusion and stenosis of left carotid artery Medications: New ferrous sulfate ER (Slow Fe) 142 mg PO DAILY 60 days 60 tabs 1RF D50.9 - Iron deficiency anemia, unspecified Refilled fluticasone propionate 50 mcg/actuation (Flonase Allergy Relief) administer into each nostril 1 spray intranasal DAILY 30 days 16 grams 3RF J30.89 - Other allergic rhinitis Coding Level of Care Code Est Pt Level 4 (29880) Diagnoses Hypothyroidism, unspecified type E03.9 Hypothyroidism type: unspecified Carotid stenosis, left I65.22 Class 3 severe obesity due to excess calories without serious comorbidity with body mass index (BMI) of 40.0 to 44.9 in adult E66.01; Z68.41 Body mass index: BMI 40.0-44.9 Obesity classification: adult class 3 (BMI >= 40) Obesity type: due to excess calories Serious obesity comorbidity presence: without serious comorbidity Iron deficiency anemia, unspecified iron deficiency anemia type D50.9 Anemia type: iron deficiency Iron deficiency anemia type: unspecified iron deficiency
== END 2023-04-03 15:45 | disposition home or self-care (01) ==
PROVIDERS: PCP Physician Assistant; Visit Provider Physician Assistant
DX: E03.9 Hypothyroidism, unspecified (principal); I65.22 Occlusion and stenosis of left carotid artery; E66.01 Morbid (severe) obesity due to excess calories; Z68.41 Body mass index [BMI] 40.0-44.9, adult; D50.9 Iron deficiency anemia, unspecified
CPT/HCPCS: 99214

== ENCOUNTER → 2023-04-04 13:50 | Outpatient (REF) | payer OTHER, MEDICAID, SELFPAY | LOC: HO.SL 13:50 | PROVIDERS: PCP Physician Assistant; Visit Provider Internal Medicine | DX: R40.0 Somnolence (principal); E66.9 Obesity, unspecified; R06.83 Snoring; G47.33 Obstructive sleep apnea (adult) (pediatric) | CPT/HCPCS: 95806 ==

== ENCOUNTER → 2023-04-04 14:14 | Outpatient (BNV) | payer OTHER, MEDICAID, SELFPAY | PROVIDERS: PCP Physician Assistant; Visit Provider Internal Medicine | DX: G47.33 Obstructive sleep apnea (adult) (pediatric) (principal) | CPT/HCPCS: 95806 ==

== ENCOUNTER 2023-05-01 13:43 | Outpatient (AMB) | payer OTHER, MEDICAID, SELFPAY ==
[2023-05-01 13:58] VITALS: BP 110/60; PULSE 78; O2SAT 98; BMI 37.5
--- NOTE | 2023-05-01 13:58 | A.OFFVIS_ITS ---
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 Allergies sulfamethoxazole [From Bactrim] Allergy (Intermediate, Verified 05/01/23 14:23) Rash all over body, swelling & redness in face trimethoprim [From Bactrim] Allergy (Intermediate, Verified 05/01/23 14:23) Rash all over body, swelling & redness in face prednisone Adverse Reaction (Intermediate, Verified 05/01/23 14:23) night sweats oxycodone [OxyContin] Adverse Reaction (Unknown, Verified 05/01/23 14:23) itchiness Medication List - Last Reconciled 05/01/23 by Fei Laura MD ferrous sulfate 325 mg PO DAILY PRN ferrous sulfate ER (Slow Fe) 142 mg PO DAILY 60 days fluticasone propionate 50 mcg/actuation (Flonase Allergy Relief) 1 spray intranasal DAILY 30 days ibuprofen 600 mg PO Q6H PRN levothyroxine 175 mcg PO DAILY meclizine 25 mg PO TID PRN Do you need a note to return to daycare/school/sports/work: No HPI Snoring HPI Details This 37 years old female with gross obesity, round face and short neck, and crowded oropharynx, Comes for follow-up after home-based sleep study. Again complains that she is extremely sleepy during the daytime, even after staying in bed for 7-8 hours during the night. She tends to doze off in the morning hours about 2 hours after waking up, and especially in the afternoon. [place] Sleepiness Scale is 15/24. At night during her sleep she snores loud, and wakes up frequently . She does not think she is getting good and deep sleep. SHE DID HAVE HOME-BASED SLEEP STUDY BUT DURING THAT NIGHT SHE DID NOT SLEEP WELL, SAY IS THAT SHE SLEPT NO MORE THAN 2 OR 3 HOURS. THE SLEEP STUDY DOES CONFIRM THAT SHE HAS OBSTRUCTIVE SLEEP APNEA HOWEVER HER TOTAL SLEEP TIME AHI IS 5.1 AND IN SUPINE SLEEP AT 6.6. SNORING FOR 33% OF THE SLEEP TIME. [facility] Medical History (Updated 05/01/23 @ 16:16 by Fei Laura MD) KESHAWN (obstructive sleep apnea) Somnolence, daytime Obesity (BMI 30-39.9) Surgical History S/P laparoscopic cholecystectomy S/P LASIK surgery History of appendectomy Family History Father Medical history unknown Mother Hypertension Hyperlipidemia Thyroid disease Sister Hypothyroid Family/Other Diabetes Social History Household Members: Friend(s) Housing: Apartment Do you presently have visiting nurse or other home services: No Alcohol intake: unknown Patient Tobacco Use Status: Former Tobacco user e-Cigarette/Vaping Use: Never Used Second Hand Smoke Exposure: No service: No Current occupational status: employed Cognitive needs: No Hearing needs: No Vision needs: Yes Review of Systems Const All systems reviewed & are unremarkable except as noted in HPI and below Reports snoring Eyes Reports no additional complaints ENT Reports no additional complaints Card Denies chest pain, Denies syncope, Denies irregular heart rhythm, Denies leg edema and Reports dyspnea on exertion Resp Denies cough, Reports dyspnea on exertion, Reports snoring and Denies wheezing GI Reports no additional complaints Reports no additional complaints Musc Reports no additional complaints Skin/Breast Reports system reviewed and no additional complaints, except as documented Neuro Reports no additional complaints and Denies syncope Psych Reports no additional complaints Endo Reports other (Hypothyroidism being treated) Aller/Immun Denies wheezing and Reports other (Has mild allergic rhinitis which is controlled with Flonase spray as needed) Physical Exam Vital Signs: Last Vital Signs Pulse 78 05/01/23 13:58 BP 110/60 05/01/23 13:58 Pulse Ox 98 05/01/23 13:58 Oxygen Delivery Method Room Air 05/01/23 13:58 BMI result Body Mass Index 37.5 Const General: healthy appearing (Except for being overweight), comfortable, no acute distress, alert and awake Orientation/consciousness: patient oriented x3 HEENT Head: Yes normal to inspection General nose exam: No nasal polyps present and No nasal discharge present Face and sinus: Yes sinuses nontender Mouth: oropharynx abnormals (Oropharynx is narrow and crowded, Mallampati class 3) Throat: Yes posterior oropharynx normal Eyes General: appearance normal, both eyes and all related structures Neck Neck: Yes normal visual inspection, Yes no lymphadenopathy, Yes trachea midline, Yes no JVD and Yes other (Neck circumference 17 in) Thyroid: Thyroid normal Chest Chest palpation & inspection: normal inspection of the chest, normal palpation of entire chest wall and no tenderness Resp Effort & Inspection: normal respiratory effort Auscultation: clear to auscultation bilaterally, no crackles and no wheezes Cardio Palpation: normal PMI Rate: regular rate Rhythm: regular rhythm Heart sounds: no gallops and no murmurs Peripheral pulses: Peripheral pulses 2+ throughout GI Palpation (GI): Soft to palpation, nontender, No hepatosplenomegaly present, no masses and Other GI palpation findings present (Abdomen is moderately obese and protuberant) Auscultation: normal bowel sounds Back/Spine/Pelvis Thoracic/Lumbar Spine: thoracic and lumbar spine normal to inspection Skin General skin exam: no rashes or lesions noted Neuro General: patient oriented x3 and no focal motor deficits Cranial nerves: Yes CN's II-XII intact bilaterally Extrem General: Yes normal to inspection, Yes no clubbing, cyanosis or edema and Yes no calf tenderness Psych Appearance: grossly normal and well kempt Speech and movement: Normal speech and movement present Results Reviewed Results Reviewed: HOME-BASED SLEEP STUDY. TOTAL SLEEP TIME AHI 5.2, SUPINE POSITION AHI 6.3. C/W MILD OBSTRUCTIVE SLEEP APNEA. Assessment & Plan Assessment & Plan (1) Obesity (BMI 30-39.9): Comment: Patient is grossly obese. She has been grossly over weight in the last 7-8 years. Has a round face short and narrow neck. Facial features are typical of obstructive sleep apnea . Code(s): E66.9 - Obesity, unspecified (2) Somnolence, daytime: Comment: Has longstanding history of daytime fatigue and sleepiness. ESS= 15/24 Code(s): R40.0 - Somnolence (3) KESHAWN (obstructive sleep apnea): Comment: HER HOME-BASED SLEEP STUDY, IS THE POSITIVE FOR SLEEP APNEA EVEN THOUGH IT IS MILD. TOTAL SLEEP TIME AHI 5.1 SUPINE POSITION AHI 6.6, SNORING FOR 33% OF THE SLEEP TIME. , ORDINARILY WE WOULD TREAT MILD SLEEP APNEA WITH CONSERVATIVE MEASURES INCLUDING AGGRESSIVE WEIGHT REDUCTION AND POSITION THERAPY. BUT IN HER CASE SHE IS VERY SYMPTOMATIC, WITH EXCESSIVE DAYTIME SLEEPINESS AND DIFFICULTY IN SLEEPING AT NIGHT. SO I WILL GO AHEAD AND ORDER IS CPAP EQUIPMENT FOR HER, GIVEN INSTRUCTIONS FOR THE USE OF CPAP. WILL MONITOR HER CLOSELY, REVISIT 6 WEEKS. Code(s): G47.33 - Obstructive sleep apnea (adult) (pediatric) (4) Allergic rhinitis: Comment: SHE HAS CHRONIC NASAL CONGESTION, BEING CONTROLLED WITH USE OF FLONASE Code(s): J30.9 - Allergic rhinitis, unspecified Qualifiers: Allergic rhinitis trigger: other Allergic rhinitis seasonality: unspecified Qualified Code(s): J30.89 - Other allergic rhinitis Coding Level of Care Code Est Pt Level 3 (13665) Diagnoses Obesity (BMI 30-39.9) E66.9 Somnolence, daytime R40.0 KESHAWN (obstructive sleep apnea) G47.33 Allergic rhinitis due to other allergic trigger, unspecified seasonality J30.89 Allergic rhinitis trigger: other Allergic rhinitis seasonality: unspecified
== END 2023-05-01 14:23 | disposition home or self-care (01) ==
PROVIDERS: PCP Physician Assistant; Visit Provider Internal Medicine
DX: E66.9 Obesity, unspecified (principal); R40.0 Somnolence; G47.33 Obstructive sleep apnea (adult) (pediatric); J30.89 Other allergic rhinitis
CPT/HCPCS: 99213

== ENCOUNTER → 2023-05-01 13:43 | Outpatient (BNVA) | payer OTHER, MEDICAID, SELFPAY | PROVIDERS: PCP Physician Assistant; Visit Provider Internal Medicine ==

== ENCOUNTER 2023-08-06 17:11 | Emergency (ER) | payer OTHER, SELFPAY ==
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
[2023-08-06 17:25] VITALS: BP 102/48; PULSE 70; RESP 18; TEMP 36.1; O2SAT 98; BMI 38.3
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
== END 2023-08-06 20:34 | disposition home or self-care (01) ==
PROVIDERS: Emergency Provider Student in an Organized Health Care Education/Training Program; PCP Physician Assistant
DX: S39.92XA Unspecified injury of lower back, initial encounter (principal); S79.911A Unspecified injury of right hip, initial encounter; R51.9 Headache, unspecified; M54.2 Cervicalgia; M25.551 Pain in right hip; V43.52XA Car driver injured in collision with other type car in traffic accident, initial encounter; Y93.9 Activity, unspecified; Y92.410 Unspecified street and highway as the place of occurrence of the external cause; Y99.9 Unspecified external cause status
CPT/HCPCS: 70450; 72100; 72125; 73502; 99282; 99284

== ENCOUNTER 2023-10-02 13:24 | Outpatient (AMB) | payer OTHER, MEDICAID, SELFPAY ==
--- NOTE | 2023-10-02 13:26 | MHC.PC.OV ---
Vital Signs 10/02/23 13:33 Height 5 ft 2 in Weight 218 lb 4 oz BMI 39.9 BP 102/70 Blood Pressure Location Lt brachial Position Sitting Intake Visit Reasons: Annual Exam Intake Note: Patient is here today for a physical. Physical Security Specialist Required: No Accompanied by: Self / Same As Patient Is last menstrual period known: Yes Last menstrual period: 09/28/23 Allergies sulfamethoxazole [From Bactrim] Allergy (Intermediate, Verified 10/02/23 13:43) Rash all over body, swelling & redness in face trimethoprim [From Bactrim] Allergy (Intermediate, Verified 10/02/23 13:43) Rash all over body, swelling & redness in face prednisone Adverse Reaction (Intermediate, Verified 10/02/23 13:43) night sweats oxycodone [OxyContin] Adverse Reaction (Unknown, Verified 10/02/23 13:43) itchiness Medication List - Last Reconciled 10/02/23 by Adiel Villanueva PA-C cyclobenzaprine 10 mg PO TID PRN 5 days fluticasone propionate 50 mcg/actuation (Flonase Allergy Relief) 1 spray intranasal DAILY 30 days levothyroxine 175 mcg PO DAILY meclizine 25 mg PO TID PRN naproxen 500 mg PO BID PRN 7 days Tobacco use date assessed: 10/02/23 Dental Screening Dental Screen Date: 10/02/23 Did you have a dental visit in the last 12 months?: No Did you have a dental problem in the last 6 months where you did not have access to dental care?: No Was dental information given to patient?: Yes HPI Annual Exam HPI Details Patient is a 37-year-old female here today for a routine annual physical. Patient's past medical history significant for obesity, anemia, hypothyroidism, KESHAWN Concern--> has been experiencing depression over the last several months. She reports lack of interested in doing things she used to like, low sexual drive ect.. She is interested in starting a medication to help her with her depression. .. Hypothyroidism: Has yet to get labs to recheck TSH. continues on levothyroxine 175 mcg with good effect. He reports having palpitations when at rest and feels this is due to her thyroid. Has gained 10 lb since last office visit .. Obstructive sleep apnea: Has recently been diagnosed with obstructive sleep apnea has been started on a CPAP machine at night which she is using a nightly basis. She still feels tired during the daytime and attributes this to perhaps having anemia again or her thyroid. .. Anemia: Has been stable and trending up with the use of iron supplementation. 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 VAccine : need New tdap, Did get a FLu vac at work. Laboratory Tests 03/22/23 11:42 RBC 4.38 Creatinine 0.80 TSH 1.28 [facility] Medical History KESHAWN (obstructive sleep apnea) Somnolence, daytime Obesity (BMI 30-39.9) Surgical History S/P laparoscopic cholecystectomy S/P LASIK surgery History of appendectomy Family History Father Medical history unknown Mother Hypertension Hyperlipidemia Thyroid disease Sister Hypothyroid Family/Other Diabetes Social History (Updated 10/02/23 @ 13:47 by Adiel Villanueva PA-C) Household Members: Friend(s) Housing: Apartment Do you presently have visiting nurse or other home services: No Alcohol intake: unknown Tobacco use type: Smokeless Tobacco e-Cigarette/Vaping Use: Never Used Second Hand Smoke Exposure: No service: No Current occupational status: employed Cognitive needs: No Hearing needs: No Vision needs: Yes Female Reproductive History Menstrual Date of last menstrual period: 09/28/23 Questionnaire PHQ-9 Over the last 2 weeks, how often have you been bothered by any of the following problems? 1. Little interest or pleasure in doing things: nearly every day 2. Feeling down, depressed, or hopeless: more than half the days 3. Trouble falling or staying asleep, or sleeping too much: nearly every day 4. Feeling tired or having little energy: nearly every day 5. Poor appetite or overeating: nearly every day 6. Feeling bad about yourself - or that you are a failure or have let yourself or your family down: more than half the days 7. Trouble concentrating on things, such as reading the newspaper or watching television: not at all 8. Moving or speaking so slowly that other people could have noticed. Or the opposite - being so fidgety or restless that you have been moving around a lot more than usual: nearly every day 9. Thoughts that you would be better off or of hurting yourself in some way: not at all Total score: 19 Depression Screening Interpretation: Positive Depression Screening Follow-up: Existing condition Depression Screening Done: Yes 14003 - PHQ-9 Billing: Yes Source: Developed by Drs. Vinh Rowell, Kory Damico and colleagues, with an educational lane from [employer]. Thrive Questionnaire Date Thrive assessed: 10/02/23 I am a: Patient What is your living situation today?: I have a steady place to live Within the past 12 months, did the food you bought not last and you didn't have the money to get more?: Never true Within the past 12 months, did you worry whether your food would run out before you got money to buy more?: Never true Do you have trouble paying for medicines?: No Do you have trouble getting transportation to medical appointments?: No Do you have trouble paying your heating and electricity bill?: No Do you have trouble taking care of your child, family member or friend?: No Do you have trouble with day-to-day activities such as bathing, preparing meals, shopping, managing finances, etc.?: No Are you currently unemployed and looking for a job?: No Are you interested in more education?: No Please select the resources that you would like help with: None Currently or been in a relationship where the following occur: no concerns reported THRIVE Score: 0 AUDIT C Alcohol Use Questionnaire (AUDIT-C) 1. How often do you have a drink containing alcohol?: Never 3. How often do you have six or more drinks on one occasion?: Never Total Score: 0 BROCK-7 AMB Questionnaire BROCK-7 Date BROCK - 7 assessed: 10/25/21 Source: Developed by Drs. Vinh Rowell, Sharon Calles, Kory Jett and colleagues, with an educational lane from [employer]. Review of Systems Const Denies body aches, Denies chills, Denies excessive sweating, Denies fatigue, Denies fever(s) and Denies headache(s) Eyes Denies blurry vision ENT Denies dysphagia, Denies vertigo, Denies dizziness, Denies headache(s), Denies hearing loss and Denies tinnitus Card Denies chest pain, Denies chest pain with activity, Denies syncope, Denies irregular heart rhythm and Denies dyspnea Resp Denies chest congestion, Denies cough, Denies hemoptysis, Denies dyspnea and Denies wheezing GI Denies abdominal pain, Denies melena, Denies hematochezia, Denies coffee ground emesis, Denies dysphagia, Denies diarrhea, Denies nausea and Denies vomiting Denies urinary frequency, Denies dysuria, Denies urinary hesitancy and Denies urinary urgency Musc Denies arthralgias, Denies limited range of motion, Denies muscle cramps and Denies muscle weakness Skin/Breast Denies rash and Denies skin ulcer Neuro Denies Abnormal speech present, Denies confusion, Denies vertigo, Denies dizziness, Denies syncope, Denies headache(s), Denies memory loss and Denies seizure-like activity Psych Denies anxiety, Denies confusion, Denies depression, Denies memory loss, Denies panic attacks and Denies paranoia Endo Denies excessive sweating, Denies fatigue, Denies flushing, Denies polydipsia and Denies polyuria Aller/Immun Denies wheezing Physical exam (Primary Care) Vital Signs: Last Vital Signs BP 102/70 10/02/23 13:33 BMI result Body Mass Index 39.9 BMI Assessment/Plan discussion: High Tobacco/Smoking Status: Tobacco use Status Tobacco use date assessed 10/02/23 10/02/23 13:41 Patient Tobacco Use Status 10/02/23 13:47 Tobacco use type Smokeless Tobacco 10/02/23 13:47 e-Cigarette/Vaping Use Never Used 10/02/23 13:47 Are you ready to quit: No Tobacco cessation counseling provided: Yes Items discussed: Nicotine replacement Relapse Prevention: discussed the importance of a supportive environment, discussed negative mood or depression after quitting, weight gain after smoking is common and discussed dietary, exercise and/or lifestyle changes Number of minutes spent counselin CPT code: 56640 - 4-10 Minutes PHQ-9: PHQ-9 Score PHQ-9: Total score 19 10/02/23 13:58 Depression Screening Interpretation: Positive Depression Screening Follow-up: Existing condition Thrive Assessment: Date of Thrive Assessment Date Thrive assessed 10/02/23 10/02/23 13:36 Currently or been in a relationship where the following occur: no concerns reported Const Other: Obese General: cooperative, comfortable, no acute distress, alert and awake; No confusion Orientation/consciousness: oriented to person, oriented to place, patient oriented x3 and No confusion HENMT Head: Yes normocephalic Ears: external ears normal and TM's normal bilaterally Face and sinus: No sinus tenderness Mouth: Normal oral and palatal mucosa present and tongue normal Teeth and gingiva: dentition normal and gingiva normal Throat: Yes posterior oropharynx normal, Yes tonsils normal and Yes uvula midline Eyes Conjunctivae: conjunctivae normal Sclerae: sclerae normal Pupils: Equal, round and reactive pupils present EOM: EOMs intact bilaterally Direct Ophthalmoscopy: No no photophobia Neck Neck: Yes no lymphadenopathy, No tender and Yes no JVD Thyroid: Thyroid normal Carotids: no bruits Chest Chest palpation & inspection: no tenderness Resp Effort & Inspection: normal respiratory effort, no audible wheezes, not labored and no stridor Auscultation: no crackles, no rales, no rhonchi and no wheezes Cardio Jugular venous distension: no JVD Rate: regular rate, not bradycardic and not tachycardic Rhythm: regular rhythm Bruits: no carotid bruits Peripheral pulses: Peripheral pulses 2+ throughout GI Inspection: Yes normal to inspection, No abdominal wall ecchymosis and No visible herniation Palpation (GI): Soft to palpation, nontender, no guarding, not rigid and No hepatosplenomegaly present Auscultation: normoactive bowel sounds General: Yes no CVA tenderness Back/Spine/Pelvis Back: no CVA tenderness and No back tenderness Cervical Spine: cervical ROM normal Thoracic/Lumbar Spine: thoracic and lumbar spine normal to inspection, straight leg raise negative bilaterally, No thoraco-lumbar ROM limited and No lumbar spinal tenderness Skin Lesions: no lesions Rashes: no rashes Wounds: no wounds Neuro General: oriented to person, oriented to place, patient oriented x3, CN's II-XI intact bilaterally and No confusion Cranial nerves: Yes Equal, round and reactive pupils present and Yes Normal accommodation reflex present Cognition (Neuro): normal cognition Speech: No Abnormal speech present Gait exam (Neuro): Normal gait present Motor exam (neuro): 5/5 motor strength present throughout Extrem Right upper extremity: full ROM; no cyanosis Left upper extremity: full ROM; no cyanosis Right lower extremity: no edema Left lower extremity: no edema Psych Appearance: grossly normal Mental Status: mental status grossly normal Affect: normal affect Attitude: cooperative Thought process: Normal thought process present Assessment and Plan Assessment & Plan (1) Annual physical exam: Code(s): Z00.00 - Encounter for general adult medical examination without abnormal findings (2) KESHAWN (obstructive sleep apnea): Comment: HER HOME-BASED SLEEP STUDY, IS THE POSITIVE FOR SLEEP APNEA EVEN THOUGH IT IS MILD. TOTAL SLEEP TIME AHI 5.1 SUPINE POSITION AHI 6.6, SNORING FOR 33% OF THE SLEEP TIME. , ORDINARILY WE WOULD TREAT MILD SLEEP APNEA WITH CONSERVATIVE MEASURES INCLUDING AGGRESSIVE WEIGHT REDUCTION AND POSITION THERAPY. BUT IN HER CASE SHE IS VERY SYMPTOMATIC, WITH EXCESSIVE DAYTIME SLEEPINESS AND DIFFICULTY IN SLEEPING AT NIGHT. SO I WILL GO AHEAD AND ORDER IS CPAP EQUIPMENT FOR HER, GIVEN INSTRUCTIONS FOR THE USE OF CPAP. WILL MONITOR HER CLOSELY, REVISIT 6 WEEKS. Code(s): G47.33 - Obstructive sleep apnea (adult) (pediatric) Plan: Now followed by pulmonology. Has been started on CPAP machine at night. Has not found effective for her daytime somnolence. (3) Smoker: Comment: Patient has past history of smoking but quit in 2020. Code(s): F17.200 - Nicotine dependence, unspecified, uncomplicated Plan: Does admit to smoking electronic cigarettes. She does understand that this is not confirmed her health and will try to wean off. (4) Hypothyroid: Comment: Found to have hypothyroidism back about 7-8 years ago and has been on thyroid replacement therapy. Code(s): E03.9 - Hypothyroidism, unspecified Qualifiers: Hypothyroidism type: unspecified Qualified Code(s): E03.9 - Hypothyroidism, unspecified Plan: Patient's most recent TSH has been stable. Will continue her current dose of levothyroxine 175 mcg (5) Carotid stenosis, left: Code(s): I65.22 - Occlusion and stenosis of left carotid artery Plan: Patient with history of carotid stenosis incidentally found years ago at a hospital admission. Would like continued follow-up. (6) Obese: Code(s): E66.9 - Obesity, unspecified Qualifiers: Body mass index: BMI 40.0-44.9 Obesity classification: adult class 3 (BMI >= 40) Obesity type: due to excess calories Serious obesity comorbidity presence: without serious comorbidity Qualified Code(s): E66.01 - Morbid (severe) obesity due to excess calories; Z68.41 - Body mass index [BMI]40.0-44.9, adult Plan: Patient does understand her BMI is over 30 will work on being more physically active and adapting to better eating habits to reduce her weight (7) Anemia: Code(s): D64.9 - Anemia, unspecified Qualifiers: Anemia type: iron deficiency Iron deficiency anemia type: unspecified iron deficiency Qualified Code(s): D50.9 - Iron deficiency anemia, unspecified Plan: Patient has a chronic microcytic anemia. Has not been able to tolerate some iron supplementation due to constipation. (8) MDD (major depressive disorder), recurrent episode, moderate: Code(s): F33.1 - Major depressive disorder, recurrent, moderate Plan: Patient's PHQ-9 score positive for depression which has been a fairly new finding. She reports decreased interested in thing she used to like to do and decreased sexual drive. She is interested in starting medication. She has not interested in cognitive behavior therapy at this time. Will follow-up with patient 4 weeks to evaluate the effectiveness of medication. Orders: Orders Comprehensive [place]. Panel Fast Today Z13.1 - Encounter for screening for diabetes mellitus Complete Blood Count no Diff Today D50.9 - Iron deficiency anemia, unspecified IRON PROFILE Today D50.9 - Iron deficiency anemia, unspecified Lipid Panel Today I65.22 - Occlusion and stenosis of left carotid artery TSH reflex Free T4 Today E03.9 - Hypothyroidism, unspecified Medications: New venlafaxine ER (Effexor XR) 37.5 mg PO DAILY 30 days 30 caps 1RF F33.1 - Major depressive disorder, recurrent, moderate blood pressure monitor (Blood Pressure Kit) As directed 1 ea 0RF I95.9 - Hypotension, unspecified Changed From naproxen 500 mg PO BID 7 days PRN 14 tabs 0RF pain E03.9 - Hypothyroidism, unspecified To naproxen 500 mg PO BID 30 days 60 tabs 1RF pain E03.9 - Hypothyroidism, unspecified Refilled meclizine 25 mg PO TID PRN 14 tabs 0RF dizziness E03.9 - Hypothyroidism, unspecified Coding Level of Care Code Est Pt Prev Care 18-39y(26972) Diagnoses Annual physical exam Z00.00 KESHAWN (obstructive sleep apnea) G47.33 Smoker F17.200 Hypothyroidism, unspecified type E03.9 Hypothyroidism type: unspecified Carotid stenosis, left I65.22 Class 3 severe obesity due to excess calories without serious comorbidity with body mass index (BMI) of 40.0 to 44.9 in adult E66.01; Z68.41 Body mass index: BMI 40.0-44.9 Obesity classification: adult class 3 (BMI >= 40) Obesity type: due to excess calories Serious obesity comorbidity presence: without serious comorbidity Iron deficiency anemia, unspecified iron deficiency anemia type D50.9 Anemia type: iron deficiency Iron deficiency anemia type: unspecified iron deficiency MDD (major depressive disorder), recurrent episode, moderate F33.1 Additional Codes Vital Signs *Quality* - CPT code: 06433 - 4-10 Minutes ([id number])
[2023-10-02 13:33] VITALS: BP 102/70; BMI 39.9
== END 2023-10-02 14:11 | disposition home or self-care (01) ==
PROVIDERS: PCP Physician Assistant; Visit Provider Physician Assistant
DX: Z00.00 Encounter for general adult medical examination without abnormal findings (principal); E66.01 Morbid (severe) obesity due to excess calories; Z68.41 Body mass index [BMI] 40.0-44.9, adult; F33.1 Major depressive disorder, recurrent, moderate; G47.33 Obstructive sleep apnea (adult) (pediatric); F17.200 Nicotine dependence, unspecified, uncomplicated; E03.9 Hypothyroidism, unspecified; I65.22 Occlusion and stenosis of left carotid artery; D50.9 Iron deficiency anemia, unspecified
CPT/HCPCS: 99395

== ENCOUNTER 2023-10-05 10:05 | Outpatient (REF) | payer OTHER, SELFPAY ==
[2023-10-05 10:46] LABS: Hematocrit 32.4 % (37.0-47.0); Hemoglobin 10.5 g/dl (12.0-16.0); Mean Corpuscular HGB Conc 32.4 g/dl (31.0-35.0); Mean Corpuscular Hemoglobin 26.3 pg (27.0-33.0); Mean Corpuscular Volume 81.2 fL (80.0-98.0); Mean Platelet Volume 11.3 fL (9.4-12.3); Platelet Count 340 X10*3/uL (160-400); Red Blood Count 3.99 X10*6/uL (4.20-5.50); Red Cell Distribution Width 14.6 % (11.0-16.0)
[2023-10-05 11:26] LABS: Alanine Aminotransferase 14 U/L (0-31); Albumin Level 4.2 g/dL (3.5-5.0); Alkaline Phosphatase 73 U/L (39-117); Anion Gap 11 (12-20); Aspartate Amino Transferase 13 U/L (5-31); Bilirubin Total 0.4 mg/dL (0.0-1.0); Blood Urea Nitrogen 10 mg/dL (9-16); Calcium 9.5 mg/dL (8.4-10.2); Carbon Dioxide 25 mmol/L (22-29); Chloride 106 mmol/L (96-108); Cholesterol 160 mg/dL (<200); Estimated Glomerular Filt Rate > 60; Glucose Fasting 101 mg/dL (60-99); HDL Cholesterol 38 mg/dL (>40); Iron 51 mcg/dL (30-160); LDL Cholesterol Calculated 104 mg/dL (<100); Percent Iron Saturation 19 % (15-50); Potassium 3.9 mmol/L (3.3-5.1); Sodium 138 mmol/L (135-145); Total Iron Binding Capacity 264 mcg/dL (228-428); Total Protein 7.7 g/dL (6.5-8.0); Triglycerides 92 mg/dL (<150); Unsaturated Iron Binding 213 ug/dL
[2023-10-05 11:42] LABS: TSH reflex Free T4 3.38 uIU/mL (0.32-4.0)
== END 2023-10-05 10:06 | disposition home or self-care (01) ==
LOC: HO.LAB 10:05
PROVIDERS: PCP Physician Assistant; Visit Provider Physician Assistant
DX: Z13.1 Encounter for screening for diabetes mellitus (principal); I65.22 Occlusion and stenosis of left carotid artery; E03.9 Hypothyroidism, unspecified; D50.9 Iron deficiency anemia, unspecified
CPT/HCPCS: 36415; 80053; 80061; 83540; 84443; 85027

== ENCOUNTER 2023-10-31 13:56 | Outpatient (AMB) | payer OTHER, SELFPAY ==
--- NOTE | 2023-10-31 13:53 | A.OFFPC_ITS ---
Intake Visit Reasons: f/u MDD ( telehealth) Allergies sulfamethoxazole [From Bactrim] Allergy (Intermediate, Verified 10/02/23 13:43) Rash all over body, swelling & redness in face trimethoprim [From Bactrim] Allergy (Intermediate, Verified 10/02/23 13:43) Rash all over body, swelling & redness in face prednisone Adverse Reaction (Intermediate, Verified 10/02/23 13:43) night sweats oxycodone [OxyContin] Adverse Reaction (Unknown, Verified 10/02/23 13:43) itchiness Medication List - Last Reconciled 10/31/23 by Adiel Villanueva PA-C blood pressure monitor (Blood Pressure Kit) As directed cyclobenzaprine 10 mg PO TID PRN 5 days ferrous gluconate 236 mg PO DAILY 30 days fluticasone propionate 50 mcg/actuation (Flonase Allergy Relief) 1 spray intranasal DAILY 30 days levothyroxine 175 mcg PO DAILY meclizine 25 mg PO TID PRN naproxen 500 mg PO BID 30 days venlafaxine ER (Effexor XR) 37.5 mg PO DAILY 30 days Tobacco use date assessed: 10/02/23 Dental Screening Dental Screen Date: 10/02/23 HPI f/u MDD ( telehealth) HPI Details Patient is a 37-year-old female being evaluated today via telephone only. At last visit we discussed her depression and agree to start venlafaxine. She reports reading up on side effects of venlafaxine and did not want take the medication due to potential side effects. She is interested in trying Wellbutrin for her depression. Also reports she continues to slightly elevated heart rates even at rest. She monitors her heart rate and reports the RN weight from 90-100 even at rest. Does report waking up in the morning and feeling a rushing sensation in her chest. [facility] Medical History KESHAWN (obstructive sleep apnea) Somnolence, daytime Obesity (BMI 30-39.9) Surgical History S/P laparoscopic cholecystectomy S/P LASIK surgery History of appendectomy Family History Father Medical history unknown Mother Hypertension Hyperlipidemia Thyroid disease Sister Hypothyroid Family/Other Diabetes Social History Household Members: Friend(s) Housing: Apartment Do you presently have visiting nurse or other home services: No Alcohol intake: unknown Tobacco use type: Smokeless Tobacco e-Cigarette/Vaping Use: Never Used Second Hand Smoke Exposure: No service: No Current occupational status: employed Cognitive needs: No Hearing needs: No Vision needs: Yes Questionnaire Thrive Questionnaire Date Thrive assessed: 10/02/23 BROCK-7 AMB Questionnaire BROCK-7 Date BROCK - 7 assessed: 10/25/21 Source: Developed by Drs. Vinh Rowell, Sharon Calles, Kory Jett and colleagues, with an educational lane from [employer]. Review of Systems Const Denies headache(s) Eyes Denies loss of vision ENT Denies vertigo, Denies dizziness, Denies headache(s) and Denies sore throat Card Details: + palpitations Denies chest pain, Reports rapid heart rate, Denies leg edema and Denies lightheadedness Resp Denies cough, Denies hemoptysis and Denies wheezing GI Denies abdominal pain, Denies melena, Denies constipation, Denies diarrhea and Denies vomiting Denies urinary frequency, Denies dysuria and Denies urinary urgency Musc Denies arthralgias, Denies joint swelling, Denies numbness and Denies tingling Neuro Denies behavioral changes, Denies vertigo, Denies dizziness, Denies headache(s), Denies loss of vision, Denies memory loss, Denies numbness and Denies tingling Psych Reports anxiety, Denies behavioral changes, Reports depression, Denies memory loss and Denies panic attacks Jeremy/Lymph Denies easy bleeding and Denies easy bruising Aller/Immun Denies wheezing Physical exam (Primary Care) Tobacco/Smoking Status: Tobacco use Status Tobacco use date assessed 10/02/23 10/31/23 13:53 Tobacco use type Smokeless Tobacco 10/31/23 13:53 e-Cigarette/Vaping Use Never Used 10/31/23 13:53 Thrive Assessment: Date of Thrive Assessment Date Thrive assessed 10/02/23 10/31/23 13:53 Telehealth Telehealth Location of provider rendering services: practice address Location of patient: address on file Patient Identification confirmed using: Name, : Yes Telehealth method: voice only Patient verbally consented to treatment: Yes Patient verbally consented to billing insurance company: Yes Patient informed of any privacy concerns related to visit: Yes Minutes spent on Phone/Video with Pt.: 11 Assessment and Plan Assessment & Plan (1) MDD (major depressive disorder), recurrent episode, moderate: Code(s): F33.1 - Major depressive disorder, recurrent, moderate Plan: As per HPI patient interested in starting Wellbutrin for her depression anxiety. Will follow-up with patient in 4 weeks to evaluate the effectiveness of medication. Wants to try venlafaxine though read up on side effects and was concerned about taking this medication. (2) Tachycardia: Code(s): R00.0 - Tachycardia, unspecified Plan: She reports over the last 4 months having elevated heart rates. She monitors them on occasion and reports 90-100 even at rest. In the morning she does have a fluttering sensation in her chest. Will send for a 3 day cardiac event monitor to evaluate for any significant arrhythmia, AFib or a flutter. Orders: Orders ECG 3 day holter monitor Today R00.0 - Tachycardia, unspecified Referrals Counseling Referral F33.1 - Major depressive disorder, recurrent, moderate Medications: New bupropion HCl SR (Wellbutrin SR) 100 mg PO DAILY 30 days 30 tabs 1RF F33.1 - Major depressive disorder, recurrent, moderate Discontinued venlafaxine ER (Effexor XR) Discontinued Reason: Doctor's Order 37.5 mg PO DAILY 30 days 30 caps 1RF F33.1 - Major depressive disorder, recurrent, moderate Coding Level of Care Code Tele Est Pt Level 3 (63231) Diagnoses MDD (major depressive disorder), recurrent episode, moderate F33.1 Tachycardia R00.0
== END 2023-10-31 17:13 | disposition home or self-care (01) ==
LOC: HO.HMGH 13:56
PROVIDERS: PCP Physician Assistant; Visit Provider Physician Assistant
DX: F33.1 Major depressive disorder, recurrent, moderate (principal); R00.0 Tachycardia, unspecified
CPT/HCPCS: 99213

== ENCOUNTER → 2023-11-14 13:39 | Outpatient (REF) | payer OTHER, SELFPAY ==
--- NOTE | 2023-11-14 13:42 | HM_ITS ---
* Total monitoring time 3 days. * Underlying rhythm is sinus with an average rate of 78/Min. * Very rare supraventricular/ventricular ectopy. * No significant pauses or AV blocks. * No patient markers or diary events. MTDD
== END ==
LOC: HO.CARD 13:39
PROVIDERS: PCP Physician Assistant; Visit Provider Physician Assistant
DX: R00.0 Tachycardia, unspecified (principal); I49.3 Ventricular premature depolarization
CPT/HCPCS: 93242

== ENCOUNTER → 2023-11-14 13:42 | Outpatient (BNV) | payer OTHER, SELFPAY | PROVIDERS: PCP Physician Assistant; Visit Provider Internal Medicine | DX: R00.0 Tachycardia, unspecified (principal) | CPT/HCPCS: 93244 ==

== ENCOUNTER 2024-01-19 10:53 | Emergency (ER) | payer OTHER, SELFPAY ==
--- NOTE | 2024-01-19 10:55 | ECG_ITS ---
Test Reason : HEART PALPATION Blood Pressure : / mmHG Vent. Rate : 066 BPM Atrial Rate : 066 BPM P-R Int : 160 ms QRS Dur : 084 ms QT Int : 404 ms P-R-T Axes : 034 015 000 degrees QTc Int : 423 ms Normal sinus rhythm Low voltage QRS Nonspecific T wave abnormality Abnormal ECG When compared with ECG of 24-DEC-2022 01:06, No significant change was found Referred By: Generic ED Physician Electronically Signed By:MARLA BRADSHAW MD
[2024-01-19 10:57] VITALS: BP 120/76; PULSE 73; RESP 16; TEMP 36.5; O2SAT 97; BMI 40.2
[2024-01-19 11:17] LABS: MANUAL DIFF FLAG NO
[2024-01-19 11:19] LABS: Basophils Absolute Auto 0.1 X10*3/uL (0.0-0.2); Basophils Percent Auto 0.7 % (0-2); Eosinophils Absolute Auto 0.2 X10*3/uL (0.0-0.4); Eosinophils Percent Auto 2.2 % (0-4); Hematocrit 33.8 % (37.0-47.0); Hemoglobin 11.2 g/dl (12.0-16.0); Imm Gran Abs Auto 0.02 X10*3/uL (0.00-0.03); Imm Gran Pct Auto 0.2 % (0.0-0.4); Lymphocytes Percent Auto 19.2 % (20-40); Mean Corpuscular HGB Conc 33.1 g/dl (31.0-35.0); Mean Corpuscular Hemoglobin 26.6 pg (27.0-33.0); Mean Corpuscular Volume 80.3 fL (80.0-98.0); Mean Platelet Volume 10.9 fL (9.4-12.3); Monocytes Absolute Auto 0.5 X10*3/uL (0.1-1.2); Monocytes Percent Auto 4.9 % (2-11); Neutrophils Absolute Auto 7.5 x10*3/uL (2.0-8.3); Neutrophils Percent Auto 72.8 % (45-73); Platelet Count 334 X10*3/uL (160-400); Red Blood Count 4.21 X10*6/uL (4.20-5.50); Red Cell Distribution Width 15.6 % (11.0-16.0); White Blood Count 10.2 X10*3/uL (4.8-10.8)
[2024-01-19 11:35] LABS: Alanine Aminotransferase 13 U/L (0-31); Anion Gap 14 (12-20); Aspartate Amino Transferase 14 U/L (5-31); Bilirubin Total 0.3 mg/dL (0.0-1.0); Blood Urea Nitrogen 10 mg/dL (9-16); Calcium 9.5 mg/dL (8.4-10.2); Carbon Dioxide 22 mmol/L (22-29); Chloride 107 mmol/L (96-108); Estimated Glomerular Filt Rate > 60; Glucose Random 102 mg/dL (60-115); Potassium 4.1 mmol/L (3.3-5.1); Sodium 139 mmol/L (135-145)
[2024-01-19 11:36] LABS: Albumin Level 4.2 g/dL (3.5-5.0); Alkaline Phosphatase 76 U/L (39-117)
[2024-01-19 11:42] LABS: Troponin-I High Sensitivity 4.1 ng/L (<3.5-17.0)
[2024-01-19 12:20] VITALS: BP 113/67; PULSE 69; RESP 10; TEMP 37.1; O2SAT 97
--- NOTE | 2024-01-19 12:44 | ED.CHESTPAIN ---
HPI - Chest Pain General Chief Complaint: Chest Pain Stated Complaint: Heart palpitations, tightness/pain in jaw Time Seen by Provider: 01/19/24 12:38 Source: patient Mode of arrival: ambulatory Limitations: no limitations History of Present Illness ED Provider: DR. Cope HPI narrative: 38-year-old female came in for evaluation after having palpitation started last night felt like she is missing heartbeat which resolved this morning started to notice left jaw pain and stiffness, pain over the left shoulder that is started 3 months ago but patient feel it more today. This morning also patient was feeling dizzy slightly disoriented, patient's symptoms has improved while in the emergency department. No headache, no blurry vision, no generalized body ache, no bleeding. Related Data Previous Rx's ?Medication ?Instructions ?Recorded levothyroxine 175 mcg tablet 175 mcg PO DAILY #90 tabs 05/02/23 fluticasone propionate 50 1 spray intranasal DAILY 30 days 07/04/23 mcg/actuation nasal #16 grams spray,suspension (Flonase Allergy Relief) cyclobenzaprine 10 mg tablet 10 mg PO TID PRN muscle spasm 5 08/06/23 days #15 tabs blood pressure monitor (Blood #1 ea 10/02/23 Pressure Kit) meclizine 25 mg tablet 25 mg PO TID PRN dizziness #14 tabs 10/02/23 ferrous gluconate 236 mg (27 mg 236 mg PO DAILY 30 days #30 tabs 10/07/23 iron) tablet naproxen 500 mg tablet 500 mg PO BID pain 30 days #60 tabs 12/07/23 bupropion HCl 100 mg tablet,12 hr 100 mg PO DAILY 30 days #30 tabs 01/06/24 sustained-release (Wellbutrin SR) Allergies Allergy/AdvReac Type Severity Reaction Status Date / Time sulfamethoxazole Allergy Intermediate Rash all Verified 01/19/24 11:01 [From Bactrim] over body, swelling & redness in face trimethoprim [From Bactrim] Allergy Intermediate Rash all Verified 01/19/24 11:01 over body, swelling & redness in face prednisone AdvReac Intermediate night Verified 01/19/24 11:01 sweats oxycodone [OxyContin] AdvReac Unknown itchiness Verified 01/19/24 11:01 Review of Systems Review of Systems: All other systems are reviewed and are negative Constitutional: Reports as per HPI and Reports no additional constitutional complaints Eyes: Reports as per HPI and Reports no additional eye complaints Reports system reviewed and no additional complaints, except as documented Cardiovascular: Reports as per HPI and Reports no additional cardiovascular complaints Respiratory: Reports as per HPI and Reports no additional respiratory complaints Gastrointestinal: Reports as per HPI and Reports no additional gastrointestinal complaints Genitourinary: Reports no additional female genitourinary complaints Musculoskeletal: Reports no additional musculoskeletal complaints Skin/Breast: Reports system reviewed and no additional complaints, except as docu Psychiatric: Reports no additional psychiatric complaints Endocrine: Reports no additional endocrine complaints Hematologic/Lymphatic: Reports no additional hematologic/lymphatic complaints Allergic/Immunologic: Reports no additional allergic/immunologic complaints Reports system reviewed and no additional complaints, except as documented and Reports Abnormal speech present [facility] Past Medical History Medical History KESHAWN (obstructive sleep apnea) Somnolence, daytime Obesity (BMI 30-39.9) Surgical History S/P laparoscopic cholecystectomy S/P LASIK surgery History of appendectomy Family History Family History Father Medical history unknown Mother Hypertension Hyperlipidemia Thyroid disease Sister Hypothyroid Family/Other Diabetes Social History Social History Household Members: Friend(s) Housing: Apartment Do you presently have visiting nurse or other home services: No Alcohol intake: unknown Tobacco use type: Smokeless Tobacco Smoked in Last 30 Days: No e-Cigarette/Vaping Use: Never Used Second Hand Smoke Exposure: No Use of substances other than those prescribed or required for medical reasons: No Advance Directives: Yes Advance Directives on File: Yes Advance Directives Date on File: 02/11/23 Do you have a plan to hurt others: No Plan Patient : No service: No Current occupational status: employed Cognitive needs: No Hearing needs: No Vision needs: Yes Physical Exam Vital Signs: Vital Signs: Last Vital Signs Temp 98.7 F 01/19/24 12:20 Pulse 63 01/19/24 14:22 Resp 15 01/19/24 14:22 BP 133/76 01/19/24 14:22 Pulse Ox 98 01/19/24 14:22 O2 Del Method Room Air 01/19/24 14:22 BMI result Body Mass Index 40.2 Vital signs have been reviewed and appear to be correct. Blood pressure elevated. Heart rate normal. Respiratory rate normal. Temperature normal. Oxygen saturation normal. Appearance: Alert. Oriented X3. No acute distress. Head: Normal external exam. Normocephalic. Atraumatic. No Dee signs noted. No raccoon eyes noted Eyes: PERRLA. EOMI. Conjunctiva and sclera normal. Eyelids normal. ENT: TM's Normal. Pharynx normal. Uvula midline. Moist mucous membranes. No trismus noted. No drooling noted. No muffled voice noted. Neck: Normal inspection. Neck supple. FROM. No adenopathy. Thyroid Normal. No meningeal signs. No neck mass noted. CVS: Normal heart rate and rhythm. Heart sound normal. No murmurs noted. Pulses normal throughout. Respiratory: No respiratory distress. Painless inspiration. Breath sounds normal. No wheezes/rales/rhonchi noted. Chest nontender. No accessory muscle usage noted or decreased air movement noted. Abdomen: Soft and nontender. Bowel sounds normal in all 4 quadrants. No distention noted. No organomegaly noted. No visible injury noted. Back: No CVA tenderness. Full range of motion noted. Skin: Skin warm and dry. Normal skin color. Normal skin turgor. No rashes/lesions/lacerations noted. Extremities: No lower extremity edema. Extremities exhibit normal range of motion. Extremities nontender. Neuro: Oriented X 3. Cranial nerve exam: II-XII are grossly intact No motor deficit. No sensory deficit. Reflexes normal. Course Reevaluation(s) Reevaluation #1: 38-year-old female came in for evaluation of palpitation, and dizziness with left jaw pain. 1. No ACS concern with 2- troponin and nonspecific change EKG. To follow-up with youth liaison officer if symptoms persist. 2. Left jaw pain likely TMJ arthritis instructed to follow-up with dentist if symptoms persist. 3. Discharge to follow-up with PCP. Time: 15:37 Medications Administered Discontinued Medications Generic Name Dose Route Start Last Admin Trade Name Freq PRN Reason Stop Dose Admin Sodium Chloride 1,000 mls @ 999 mls/hr 01/19/24 13:40 01/19/24 14:26 Ns IV 01/19/24 14:40 999 mls/hr .Q1H1M ONE Administration Medical Decision Making Differential Diagnosis Differential Diagnoses: The differential diagnosis associated with the presentation includes (SVT, AFib, V tach, electrolyte derangement, severe anemia, UTI, .) Admission/Observation Consideration of admission/observation: Escalation of care including admission/observation considered Lab Data MDM Lab Attestation statement: I reviewed the patient's lab results. 01/19/24 11:11 01/19/24 11:11 Labs: Lab Results 01/19/24 01/19/24 01/19/24 Range/Units 11:11 13:22 14:12 WBC 10.2 (4.8-10.8) X10*3/uL RBC 4.21 (4.20-5.50) X10*6/uL Hgb 11.2 L (12.0-16.0) g/dl Hct 33.8 L (37.0-47.0) % MCV 80.3 (80.0-98.0) fL MCH 26.6 L (27.0-33.0) pg MCHC 33.1 (31.0-35.0) g/dl RDW 15.6 (11.0-16.0) % Plt Count 334 (160-400) X10*3/uL MPV 10.9 (9.4-12.3) fL Immature Gran % (Auto) 0.2 (0.0-0.4) % Neut % (Auto) 72.8 (45-73) % Lymph % (Auto) 19.2 L (20-40) % [place] % (Auto) 4.9 (2-11) % Eos % (Auto) 2.2 (0-4) % Baso % (Auto) 0.7 (0-2) % Lymph # (Auto) 2.0 (1.2-4.9) X10*3/uL [place] # (Auto) 0.5 (0.1-1.2) X10*3/uL Eos # (Auto) 0.2 (0.0-0.4) X10*3/uL Baso # (Auto) 0.1 (0.0-0.2) X10*3/uL Abs Immat Gran (auto) 0.02 (0.00-0.03) X10*3/uL Absolute Neuts (auto) 7.5 (2.0-8.3) x10*3/uL Absolute Nucleated RBC 0.000 (0.0-0.012) X10*3/uL Nucleated RBC % (auto) 0.0 (0.0-0.2) /100WBC Sodium 139 (135-145) mmol/L Potassium 4.1 (3.3-5.1) mmol/L Chloride 107 (96-108) mmol/L Carbon Dioxide 22 (22-29) mmol/L Anion Gap 14 (12-20) BUN 10 (9-16) mg/dL Creatinine 0.81 (0.5-1.4) mg/dL Estim Creat Clear Calc 104.0 Estimated GFR > 60 Random Glucose 102 (60-115) mg/dL Calcium 9.5 (8.4-10.2) mg/dL Total Bilirubin 0.3 (0.0-1.0) mg/dL AST 14 (5-31) U/L ALT 13 (0-31) U/L Alkaline Phosphatase 76 (39-117) U/L Troponin I High Sens 4.1 3.8 (<3.5-17.0) ng/L Total Protein 8.0 (6.5-8.0) g/dL Albumin 4.2 (3.5-5.0) g/dL Urine Color Yellow Urine Appearance Clear Urine pH 5.0 (5.0-9.0) Ur Specific [place] 1.025 (1.005-1.025) Urine Protein Negative (Neg-Trace) mg/dL Urine Glucose (UA) Negative (Negative) mg/dL Urine Ketones Negative (Negative) mg/dL Urine Blood Trace H (Negative) Urine Nitrite Negative (Negative) Ur Leukocyte Esterase Negative (Negative) Urine RBC 0-2 (0-2) /HPF Urine WBC 0-5 (0-5) /HPF Ur Squamous Epith Cells 0-2 (0-2) /HPF Urine Bacteria None Seen (None Seen) Hyaline Casts 0-2 (0-2) /LPF Urine Test NEGATIVE (NEGATIVE) Urine Opiates Screen Not Detected (Not Detect) Ur Buprenorphine Scrn Not Detected (Not Detect) ng/mL Ur Oxycodone Screen Not Detected (Not Detect) ng/mL Urine Methadone Screen Not Detected (Not Detect) ng/mL Urine Fentanyl Screen Not Detected (Not Detect) Ur Barbiturates Screen Not Detected (Not Detect) Ur Phencyclidine Scrn Not Detected (Not Detect) Ur Amphetamines Screen Not Detected (Not Detect) U Benzodiazepines Scrn Not Detected (Not Detect) Urine Cocaine Screen Not Detected (Not Detect) U Marijuana (THC) Screen Not Detected (Not Detect) Independent Interpretation I performed an independent interpretation of an: EKG (Normal sinus rhythm at 66 beats per minutes, normal intervals, nonspecific diffuse T-wave inversion, no change from previous EKG.) Discharge Plan Discharge Clinical Impression: Palpitation Patient Disposition: Home, Self-Care Instructions: Heart Palpitations (ED) Prescriptions: No Action levothyroxine 175 mcg tablet 175 mcg PO DAILY Qty: 90 2RF fluticasone propionate [Flonase Allergy Relief] 50 mcg/actuation spray,suspension 1 spray intranasal DAILY 30 Days Qty: 16 3RF Rx Instructions: administer into each nostril ferrous gluconate 236 mg (27 mg iron) tablet 236 mg PO DAILY 30 Days Qty: 30 3RF naproxen 500 mg tablet 500 mg PO BID 30 Days Qty: 60 1RF bupropion HCl [Wellbutrin SR] 100 mg tablet sustained-release 12 hr 100 mg PO DAILY 30 Days Qty: 30 3RF cyclobenzaprine 10 mg tablet 10 mg PO TID PRN (Reason: muscle spasm) 5 Days Qty: 15 0RF Rx Instructions: side effect is drowsiness. Do not take at work or while driving. meclizine 25 mg tablet 25 mg PO TID PRN (Reason: dizziness) Qty: 14 0RF (DME) blood pressure monitor [Blood Pressure Kit] Kit See Rx Instructions .Route Qty: 1 0RF Rx Instructions: As directed Referrals: Adiel Villanueva PA-C [Primary Care Provider] - Daniel Pugh MD [Physician] - Print Language: Montserratian
[2024-01-19 13:29] LABS: Appearance Urine Clear; Color Urine Yellow; Glucose Urine UA Negative (Negative); Leukocyte Esterase Urine Negative (Negative); Nitrite Urine Negative (Negative); Specific Gravity - Urine 1.025 (1.005-1.025); UMIC TRIGGER UACC YES; Urine Blood Trace (Negative); Urine Ketones Negative (Negative); Urine Protein Negative (Neg-Trace)
[2024-01-19 13:34] LABS: Bacteria Urine None Seen (None Seen); Hyaline Casts Urine 0-2 /LPF (0-2); RBC Urine 0-2 /HPF (0-2); Squamous Epithelial Cell Urine 0-2 /HPF (0-2); WBC Urine 0-5 /HPF (0-5)
[2024-01-19 14:14] LABS: UPreg QC Valid YES
[2024-01-19 14:16] LABS: Urine Pregnancy NEGATIVE (NEGATIVE)
[2024-01-19 14:22] VITALS: BP 133/76; PULSE 63; RESP 15; O2SAT 98
[2024-01-19] MEDS: 0.9 % Sodium Chloride 1,000 ML 999 ML IV (14:26)
[2024-01-19 14:32] LABS: Amphetamine Screen Urine Not Detected (Not Detect); Barbiturates, Urine Not Detected (Not Detect); Benzodiazepines Screen Urine Not Detected (Not Detect); Buprenorphine Scr Not Detected (Not Detect); Cannabinoid Screen Urine Not Detected (Not Detect); Cocaine Screen Urine Not Detected (Not Detect); Fentanyl, urine Not Detected (Not Detect); Methadone Screen, Urine Not Detected (Not Detect); Opiate Screen Urine Not Detected (Not Detect); Oxycodone Screen Urine Not Detected (Not Detect); Phencyclidine Screen Urine Not Detected (Not Detect)
[2024-01-19 14:47] LABS: Troponin-I High Sensitivity 3.8 ng/L (<3.5-17.0)
[2024-01-19 15:52] VITALS: BP 128/79; PULSE 70; RESP 15; O2SAT 99
[2024-01-19 16:17] VITALS: BP 128/79; PULSE 70; RESP 15; TEMP 37.1; O2SAT 99
== END 2024-01-19 16:18 | disposition home or self-care (01) ==
PROVIDERS: Emergency Provider Emergency Medicine; PCP Physician Assistant
DX: R00.2 Palpitations (principal); R68.84 Jaw pain; M25.512 Pain in left shoulder; R42 Dizziness and giddiness; Z79.899 Other long term (current) drug therapy
CPT/HCPCS: 36415; 80053; 80307; 81001; 81025; 84484; 85025; 93005; 96360; 99284; 99285

== ENCOUNTER → 2024-01-19 10:55 | Outpatient (BNV) | payer OTHER, SELFPAY | PROVIDERS: Emergency Provider Emergency Medicine; PCP Physician Assistant; Visit Provider Internal Medicine Cardiovascular Disease | DX: R94.31 Abnormal electrocardiogram [ECG] [EKG] (principal) | CPT/HCPCS: 93010 ==

== ENCOUNTER 2024-03-23 14:06 | Outpatient (AMB) | payer OTHER, SELFPAY ==
--- NOTE | 2024-03-23 14:21 | MHC.PC.OV ---
Vital Signs 03/23/24 14:24 Height 5 ft 2 in Weight 215 lb BMI 39.3 BP 110/60 Blood Pressure Location Lt brachial Position Sitting Pulse 74 Pulse Source Pulse Oximeter Pulse Oximetry (%) 98 Oxygen Delivery Method Room Air Intake Visit Reasons: 4 MONTH IN OFFICE Internal Sales Engineer Required: No Accompanied by: Significant Other Allergies sulfamethoxazole [From Bactrim] Allergy (Intermediate, Verified 03/23/24 14:36) Rash all over body, swelling & redness in face trimethoprim [From Bactrim] Allergy (Intermediate, Verified 03/23/24 14:36) Rash all over body, swelling & redness in face prednisone Adverse Reaction (Intermediate, Verified 03/23/24 14:36) night sweats oxycodone [OxyContin] Adverse Reaction (Unknown, Verified 03/23/24 14:36) itchiness Medication List - Last Reconciled 03/23/24 by Adiel Villanueva PA-C blood pressure monitor (Blood Pressure Kit) As directed bupropion HCl SR (Wellbutrin SR) 100 mg PO DAILY 30 days cyclobenzaprine 10 mg PO TID PRN 5 days ferrous gluconate 236 mg PO DAILY 30 days fluticasone propionate 50 mcg/actuation (Flonase Allergy Relief) 1 spray intranasal DAILY 30 days levothyroxine 175 mcg PO DAILY meclizine 25 mg PO TID PRN naproxen 500 mg PO BID 30 days Tobacco use date assessed: 10/02/23 Dental Screening Dental Screen Date: 10/02/23 HPI 4 MONTH IN OFFICE HPI Details Patient is a 38-year-old female here today for a follow-up visit l. Patient's past medical history significant for obesity, anemia, hypothyroidism, KESHAWN Concern--> reports having heart palpitations and dizziness on random occasions. She reports her heart palpitations are more evident while lying down on her left side. She has gotten a Holter monitor in the spring which did not show any significant arrhythmias or pauses though did show occasional atrial tachycardia. Major depressive disorder: At last visit we discussed her depression and she was willing to start Wellbutrin for her depression. Unfortunately she does not believe Wellbutrin was helpful for her depressed mood and actually caused her more palpitations has a side effect. She will like to wean off of Wellbutrin over the next few weeks by taking a tablet every other day for the next 3 weeks. .. Hypothyroidism: Has yet to get labs to recheck TSH. continues on levothyroxine 175 mcg with good effect. He reports having palpitations when at rest and feels this is due to her thyroid. Has gained 10 lb since last office visit .. Obstructive sleep apnea: Has recently been diagnosed with obstructive sleep apnea has been started on a CPAP machine at night which she is using a nightly basis. She still feels tired during the daytime and attributes this to perhaps having anemia again or her thyroid. .. Anemia: . She does report being somewhat fatigued and having heart palpitations and dizziness on occasion. Of note she does admit to heavy menstruations which is likely the cause of anemia. Has not been able to tolerate iron supplementation due to constipation. She is willing to try stool softener and supplemental fiber [facility] Medical History KESHAWN (obstructive sleep apnea) Somnolence, daytime Obesity (BMI 30-39.9) Surgical History S/P laparoscopic cholecystectomy S/P LASIK surgery History of appendectomy Family History Father Medical history unknown Mother Hypertension Hyperlipidemia Thyroid disease Sister Hypothyroid Family/Other Diabetes Social History Household Members: Friend(s) Housing: Apartment Do you presently have visiting nurse or other home services: No Alcohol intake: unknown Tobacco use type: Smokeless Tobacco e-Cigarette/Vaping Use: Never Used Second Hand Smoke Exposure: No Advance Directives Date on File: 02/11/23 service: No Current occupational status: employed Cognitive needs: No Hearing needs: No Vision needs: Yes Questionnaire Thrive Questionnaire Date Thrive assessed: 10/02/23 BROCK-7 AMB Questionnaire BROCK-7 Date BROCK - 7 assessed: 10/25/21 Source: Developed by Drs. Vinh Rowell, Sharon Calles, Kory Jett and colleagues, with an educational lane from [employer]. Review of Systems Const Denies headache(s) Eyes Denies loss of vision ENT Reports vertigo, Reports dizziness, Denies headache(s) and Denies sore throat Card Denies chest pain, Reports rapid heart rate, Denies leg edema, Reports lightheadedness and Reports dyspnea on exertion Resp Denies cough, Denies hemoptysis, Reports dyspnea on exertion and Denies wheezing GI Denies abdominal pain, Denies melena, Denies constipation, Denies diarrhea and Denies vomiting Denies urinary frequency, Denies dysuria and Denies urinary urgency Musc Denies arthralgias, Denies joint swelling, Denies numbness and Denies tingling Neuro Denies Abnormal speech present, Denies behavioral changes, Reports vertigo, Reports dizziness, Denies headache(s), Denies loss of vision, Denies memory loss, Denies numbness and Denies tingling Psych Denies anxiety, Denies behavioral changes, Denies depression, Denies memory loss and Denies panic attacks Jeremy/Lymph Denies easy bleeding and Denies easy bruising Aller/Immun Denies wheezing Physical exam (Primary Care) Vital Signs: Last Vital Signs Pulse 74 03/23/24 14:24 BP 110/60 03/23/24 14:24 Pulse Ox 98 03/23/24 14:24 Oxygen Delivery Method Room Air 03/23/24 14:24 BMI result Body Mass Index 39.3 Tobacco/Smoking Status: Tobacco use Status Tobacco use date assessed 10/02/23 03/23/24 14:21 Tobacco use type Smokeless Tobacco 03/23/24 14:21 e-Cigarette/Vaping Use Never Used 03/23/24 14:21 Thrive Assessment: Date of Thrive Assessment Date Thrive assessed 10/02/23 03/23/24 14:21 Const General: healthy appearing, no acute distress, alert and awake Nutritional Appearance: well nourished Orientation/consciousness: oriented to person, oriented to place and oriented to time HENMT Ears: TM's normal bilaterally General nose exam: Normal nasal mucous membranes and turbinates present Eyes Conjunctivae: conjunctivae normal Sclerae: sclerae normal Pupils: Equal, round and reactive pupils present Neck Neck: Yes no lymphadenopathy and Yes no JVD Thyroid: Thyroid normal Carotids: no bruits Resp Effort & Inspection: normal respiratory effort and not tachypneic Auscultation: no crackles, no rales, no rhonchi and no wheezes Cardio Rate: regular rate Rhythm: regular rhythm Heart sounds: no murmurs and normal S1 and S2 GI Palpation (GI): Soft to palpation, nontender, no hepatomegaly and no splenomegaly Auscultation: normal bowel sounds Skin General skin exam: no rashes or lesions noted and dry skin Neuro General: oriented to person, oriented to place and oriented to time Cranial nerves: Yes Equal, round and reactive pupils present Speech: No Abnormal speech present Gait exam (Neuro): Normal gait present Motor exam (neuro): no tremor noted Extrem Right upper extremity: full ROM Left upper extremity: full ROM Right lower extremity: full ROM; no edema Left lower extremity: full ROM; no edema Psych Mental Status: mental status grossly normal Speech and movement: Normal speech and movement present Affect: normal affect Attitude: cooperative Thought process: Normal thought process present Assessment and Plan Assessment & Plan (1) MDD (major depressive disorder), recurrent episode, moderate: Code(s): F33.1 - Major depressive disorder, recurrent, moderate Plan: Has tried Wellbutrin though did not find it effective for her mental health. Have more palpitations with the medication. Will try to wean off of Wellbutrin over the next 3 weeks by taking half tablet every other day. She is interested in establishing care with a mental health therapist. (2) SOBOE (shortness of breath on exertion): Code(s): R06.02 - Shortness of breath Plan: Wellbutrin 100 [id number]. Has been having shortness of breath on exertion and heart palpitations when lying down certain positions. Did have a heart Holter monitor in the spring of 2023 which did not show any significant arrhythmias.. Will try for a cardiac stress test to evaluate for cardiac ischemia on physical exertion. (3) Anemia: Code(s): D64.9 - Anemia, unspecified Qualifiers: Anemia type: iron deficiency Iron deficiency anemia type: unspecified iron deficiency Qualified Code(s): D50.9 - Iron deficiency anemia, unspecified Plan: Patient does have a chronic history microcytic anemia. Her anemia most likely due to heavy menstruations. She has been apprehensive on establishing care with wool shearer for Pap screening and regulating her menstruation. She has not been able to tolerate iron supplementation due to constipation and is willing to try again with the use of stool softener. (4) Smoker: Comment: Patient has past history of smoking but quit in 2019. Code(s): F17.200 - Nicotine dependence, unspecified, uncomplicated Plan: She does admit to using vaporizer cigarettes and a nearly daily occasion. She does understand she needs to quit Orders: Orders Comprehensive [place]. Panel Fast Today Z13.1 - Encounter for screening for diabetes mellitus Vitamin D 25-OH Total Today Z13.1 - Encounter for screening for diabetes mellitus TSH reflex Free T4 Today E03.9 - Hypothyroidism, unspecified CA stress test 03/23/24 R06.02 - Shortness of breath Complete Blood Count no Diff Today D50.9 - Iron deficiency anemia, unspecified IRON PROFILE Today D50.9 - Iron deficiency anemia, unspecified Referrals Counseling Referral F33.1 - Major depressive disorder, recurrent, moderate Medications: Refilled meclizine 25 mg PO TID PRN 14 tabs 0RF dizziness E03.9 - Hypothyroidism, unspecified Coding Level of Care Code Est Pt Level 4 (46853) Diagnoses MDD (major depressive disorder), recurrent episode, moderate F33.1 SOBOE (shortness of breath on exertion) R06.02 Iron deficiency anemia, unspecified iron deficiency anemia type D50.9 Anemia type: iron deficiency Iron deficiency anemia type: unspecified iron deficiency Smoker F17.200
[2024-03-23 14:24] VITALS: BP 110/60; PULSE 74; O2SAT 98; BMI 39.3
== END 2024-03-23 16:10 | disposition home or self-care (01) ==
PROVIDERS: PCP Physician Assistant; Visit Provider Physician Assistant
DX: F33.1 Major depressive disorder, recurrent, moderate (principal); R06.02 Shortness of breath; D50.9 Iron deficiency anemia, unspecified; F17.200 Nicotine dependence, unspecified, uncomplicated
CPT/HCPCS: 99214

== ENCOUNTER 2024-03-24 06:05 | Outpatient (REF) | payer OTHER, SELFPAY ==
[2024-03-24 07:12] LABS: Hematocrit 32.6 % (37.0-47.0); Hemoglobin 10.6 g/dl (12.0-16.0); Mean Corpuscular HGB Conc 32.5 g/dl (31.0-35.0); Mean Corpuscular Hemoglobin 26.7 pg (27.0-33.0); Mean Corpuscular Volume 82.1 fL (80.0-98.0); Mean Platelet Volume 11.6 fL (9.4-12.3); Platelet Count 318 X10*3/uL (160-400); Red Blood Count 3.97 X10*6/uL (4.20-5.50); Red Cell Distribution Width 14.8 % (11.0-16.0); White Blood Count 10.2 X10*3/uL (4.8-10.8)
[2024-03-24 07:54] LABS: Alanine Aminotransferase 14 U/L (0-31); Alkaline Phosphatase 68 U/L (39-117); Anion Gap 13 (12-20); Aspartate Amino Transferase 13 U/L (5-31); Bilirubin Total 0.4 mg/dL (0.0-1.0); Blood Urea Nitrogen 17 mg/dL (9-16); Calcium 9.3 mg/dL (8.4-10.2); Carbon Dioxide 22 mmol/L (22-29); Chloride 108 mmol/L (96-108); Estimated Glomerular Filt Rate > 60; Glucose Fasting 115 mg/dL (60-99); Iron 37 mcg/dL (30-160); Percent Iron Saturation 16 % (15-50); Potassium 3.8 mmol/L (3.3-5.1); Sodium 139 mmol/L (135-145); Total Iron Binding Capacity 232 mcg/dL (228-428); Total Protein 7.2 g/dL (6.5-8.0); Unsaturated Iron Binding 195 ug/dL
[2024-03-24 08:10] LABS: TSH reflex Free T4 5.85 uIU/mL (0.32-4.0); Vitamin D 25-OH Total 31.9 ng/mL (>30)
[2024-03-24 11:39] LABS: Free T4 (Free Thyroxine) 1.15 ng/dL (0.71-1.85)
== END 2024-03-24 06:06 | disposition home or self-care (01) ==
LOC: HO.LAB 06:05
PROVIDERS: PCP Physician Assistant; Visit Provider Physician Assistant
DX: D50.9 Iron deficiency anemia, unspecified (principal); E03.9 Hypothyroidism, unspecified; Z13.1 Encounter for screening for diabetes mellitus
CPT/HCPCS: 36415; 80053; 82306; 83540; 84439; 84443; 85027

== ENCOUNTER 2024-04-30 08:02 | Emergency (ER) | payer OTHER, SELFPAY ==
[2024-04-30 08:04] VITALS: BP 129/76; PULSE 77; RESP 16; TEMP 36.7; O2SAT 99; BMI 38.5
--- NOTE | 2024-04-30 08:20 | ED.GENADULT ---
HPI - General Adult General Chief complaint: General Medical Stated complaint: l side face pain Time Seen by Provider: 04/30/24 08:17 Source: patient Mode of arrival: ambulatory Limitations: no limitations History of Present Illness HPI narrative: 38 year old female pMH: KESHAWN, back pain, anemia hypothyroidism who presents to the ER with jaw pain. She states she woke up this morning with pain to left TMJ joint. Woke up denies any chewing issues has history of migraines but states it does not feel like that. Denies any falls or injuries. NO cough or fever. No dental pain or broken teeth. Has not taken anything for pain. She states it wilcox snot feel like her migraines. Related Data Previous Rx's ?Medication ?Instructions ?Recorded fluticasone propionate 50 1 spray intranasal DAILY 30 days 07/04/23 mcg/actuation nasal #16 grams spray,suspension (Flonase Allergy Relief) cyclobenzaprine 10 mg tablet 10 mg PO TID PRN muscle spasm 5 08/06/23 days #15 tabs blood pressure monitor (Blood #1 ea 10/02/23 Pressure Kit) ferrous gluconate 236 mg (27 mg 236 mg PO DAILY 30 days #30 tabs 10/07/23 iron) tablet naproxen 500 mg tablet 500 mg PO BID pain 30 days #60 tabs 12/07/23 meclizine 25 mg tablet 25 mg PO TID PRN dizziness #14 tabs 03/23/24 levothyroxine 200 mcg tablet 200 mcg PO DAILY #90 tabs 03/30/24 bupropion HCl 100 mg tablet,12 hr 100 mg PO DAILY 30 days #30 tabs 04/02/24 sustained-release (Wellbutrin SR) Allergies Allergy/AdvReac Type Severity Reaction Status Date / Time sulfamethoxazole Allergy Intermediate Rash all Verified 04/30/24 08:06 [From Bactrim] over body, swelling & redness in face trimethoprim [From Bactrim] Allergy Intermediate Rash all Verified 04/30/24 08:06 over body, swelling & redness in face prednisone AdvReac Intermediate night Verified 04/30/24 08:06 sweats oxycodone [OxyContin] AdvReac Unknown itchiness Verified 04/30/24 08:06 Review of Systems Review of Systems: Review of systems: General: Patient denies any fever chills recent illness or falls Musculoskeletal: Denies back pain or body aches or other injuries HEENT: Left jaw pain denies headache, runny nose, ear pain Respiratory: denies shortness of breath, cough Cardiovascular: no chest pain or palpitations : denies dysuria, frequency Abdomen: no nausea vomiting denies abdominal pain Extremities: no swelling, no pain Skin: no diaphoresis Yes all other systems are reviewed and are negative PMFSH Past Medical History Medical History KESHAWN (obstructive sleep apnea) Somnolence, daytime Obesity (BMI 30-39.9) Surgical History S/P laparoscopic cholecystectomy S/P LASIK surgery History of appendectomy Family History Family History Father Medical history unknown Mother Hypertension Hyperlipidemia Thyroid disease Sister Hypothyroid Family/Other Diabetes Social History Social History Household Members: Friend(s) Housing: Apartment Do you presently have visiting nurse or other home services: No Alcohol intake: unknown Tobacco use type: Smokeless Tobacco e-Cigarette/Vaping Use: Never Used Second Hand Smoke Exposure: No Advance Directives Date on File: 02/11/23 service: No Current occupational status: employed Cognitive needs: No Hearing needs: No Vision needs: Yes Physical Exam ED Vital Signs: Vital Signs - 24 hr 04/30/24 08:04 Temperature 98.1 F Pulse Rate 77 Respiratory Rate 16 Blood Pressure 129/76 Pulse Oximetry 99 Oxygen Delivery Method Room Air BMI result Body Mass Index 38.5 General: Well-appearing well-nourished in no signs of distress HEENT: Normocephalic atraumatic can't open mouth well no signs of dental infection I tapped her teeth with no pain. Pain to TMJ with biting or when biting I put any downward or upward pressure Neck: No signs of JVD, no masses no tenderness or lymphadenopathy Cardiovascular: Regular rate and rhythm Respiratory: Clear to auscultation bilaterally Abdomen: Soft nontender no masses Extremities: Normal pedal pulses no signs of edema Skin: Dry warm no rashes Back: No tenderness full ROM Medical Decision Making Medical Decision Making MDM Narrative: Since like TMJ joint inflammation patient looks well I feel the patient safe to go home with Tylenol and ibuprofen Differential Diagnosis Differential Diagnoses: The differential diagnosis associated with the presentation includes dental pain. dental abscess but unlikely sounds like isolated TMJ joint pain. Discharge Plan Discharge Clinical Impression: Temporomandibular joint arthralgia Patient Disposition: Home, Self-Care Instructions: Temporomandibular Disorder (ED) Additional Instructions: You were seen today for jaw pain that was reproducible on exam. Please call follow up with your doctor to see a dentist. You have any other concerns please return to emergency department. Prescriptions: No Action fluticasone propionate [Flonase Allergy Relief] 50 mcg/actuation spray,suspension 1 spray intranasal DAILY 30 Days Qty: 16 3RF Rx Instructions: administer into each nostril ferrous gluconate 236 mg (27 mg iron) tablet 236 mg PO DAILY 30 Days Qty: 30 3RF naproxen 500 mg tablet 500 mg PO BID 30 Days Qty: 60 1RF levothyroxine 200 mcg tablet 200 mcg PO DAILY Qty: 90 0RF bupropion HCl [Wellbutrin SR] 100 mg tablet sustained-release 12 hr 100 mg PO DAILY 30 Days Qty: 30 0RF cyclobenzaprine 10 mg tablet 10 mg PO TID PRN (Reason: muscle spasm) 5 Days Qty: 15 0RF Rx Instructions: side effect is drowsiness. Do not take at work or while driving. (DME) blood pressure monitor [Blood Pressure Kit] Kit See Rx Instructions .Route Qty: 1 0RF Rx Instructions: As directed meclizine 25 mg tablet 25 mg PO TID PRN (Reason: dizziness) Qty: 14 0RF Print Language: Korean
--- NOTE | 2024-04-30 08:27 | PC.NURSE ---
Pt reporting that she woke up this morning with left sided jaw pain, describes it as her whole jaw/ face. Pt denies history of TMJ, denies known dental issues or previous issues. Pt is able to talk but is not able to fully open jaw d/t pain. Pt feels the pain is getting worse throughout the morning. Pt reporting ice made her pain worse, pt given heat pack by this RN to trial for pain relief until provider sees pt
--- NOTE | 2024-04-30 08:40 | PC.NURSE ---
this RN went in to offer patient APAP/Motrin ordered by the provider. Pt refused, stating that is going to do nothing for me pt then requested Naproxen or tramadol. This RN alerted the provider who ordered Naproxen at this time.
[2024-04-30] MEDS: NaPROXEN 250 MG TABLET PO (08:54)
[2024-04-30 09:19] VITALS: BP 129/76; PULSE 77; RESP 16; TEMP 36.7; O2SAT 99
== END 2024-04-30 09:00 | disposition home or self-care (01) ==
PROVIDERS: Emergency Provider Student in an Organized Health Care Education/Training Program; PCP Physician Assistant
DX: M26.623 Arthralgia of bilateral temporomandibular joint (principal); R51.9 Headache, unspecified; Z79.899 Other long term (current) drug therapy
CPT/HCPCS: 99284

== ENCOUNTER → 2024-05-12 09:55 | Outpatient (REF) | payer OTHER, SELFPAY ==
--- NOTE | 2024-05-12 09:58 | CA_ITS ---
Acquisition Time: 2024-05-12 09:53:26 Total Exercise Time: 00:04:54 Test Indications: Dyspnea Medications: BUPROPION CYCLOBENZAPRINE FLONASE MECLIZINE NAPROXEN Protocol: JAIRO Max HR: 155 BPM 85% of Pred: 182 BPM Max BP: 140/060 mmHG Max Work Load: 6.8 METS Exercise stress test with exercise 4 min 54 sec of Jairo protocol, achieving 85% MPHR, with moderate to severe SOB, no chest discomfort, without arrythmia, with normotensive response to exercise, with EKG changes meeting critria for ischemia: horizontal ST depression inferiorly and V5-V6 with slow gradual improvement in recovery. Test reviewed with Dr Herndon message sent to Her PCP with result and recommendation for an exercise nuclear stress test. Referred By: Adiel Villanueva Overread By: SHADI SARAVIA
== END ==
LOC: HO.CARD 09:55
PROVIDERS: PCP Physician Assistant; Visit Provider Physician Assistant
DX: R06.02 Shortness of breath (principal)
CPT/HCPCS: 93017

== ENCOUNTER → 2024-05-12 09:58 | Outpatient (BNV) | payer OTHER, SELFPAY | PROVIDERS: PCP Physician Assistant; Visit Provider Nurse Practitioner Family | DX: R06.02 Shortness of breath (principal); I25.5 Ischemic cardiomyopathy | CPT/HCPCS: 93016; 93018 ==

== ENCOUNTER 2024-05-19 09:53 | Outpatient (AMB) | payer OTHER, SELFPAY ==
--- NOTE | 2024-05-19 09:50 | MHC.PC.OV ---
Intake Visit Reasons: f/u labs Preschool Teacher'S Assistant Required: No Information Interpreted: non-clinical & clinical Supervisor Wood Room: Not Required per policy Accompanied by: Self / Same As Patient Allergies sulfamethoxazole [From Bactrim] Allergy (Intermediate, Verified 05/19/24 10:11) Rash all over body, swelling & redness in face trimethoprim [From Bactrim] Allergy (Intermediate, Verified 05/19/24 10:11) Rash all over body, swelling & redness in face prednisone Adverse Reaction (Intermediate, Verified 05/19/24 10:11) night sweats oxycodone [OxyContin] Adverse Reaction (Unknown, Verified 05/19/24 10:11) itchiness Medication List - Last Reconciled 05/19/24 by Adiel Villanueva PA-C blood pressure monitor (Blood Pressure Kit) As directed bupropion HCl SR (Wellbutrin SR) 100 mg PO DAILY 30 days cyclobenzaprine 10 mg PO TID PRN 5 days ferrous gluconate 236 mg PO DAILY 30 days fluticasone propionate 50 mcg/actuation (Flonase Allergy Relief) 1 spray intranasal DAILY 30 days levothyroxine 200 mcg PO DAILY meclizine 25 mg PO TID PRN naproxen 500 mg PO BID 30 days Tobacco use date assessed: 10/02/23 Dental Screening Dental Screen Date: 10/02/23 HPI f/u labs HPI Details Patient is a 38-year-old female here today for a follow-up visit l. Patient's past medical history significant for obesity, anemia, hypothyroidism, KESHAWN Patient recently underwent a Wicho protocol stress test which was abnormal thus echocardiogram nuclear stress test was recommended by Cardiology. PATIENT ALSO REPORTS SHE CONTINUES TO HAVE LIGHTHEADEDNESS AND DIZZINESS WHEN LYING DOWN ON HER RIGHT SIDE. SHE DOES HAVE A HISTORY OF APPARENT VASCULAR STENOSIS INTRACRANIALLY. SHE DID HAVE AN ABNORMAL WICHO PROTOCOL STRESS TEST WHICH SHE WILL BE GOING IN FOR ECHOCARDIOGRAM AND NUCLEAR STRESS TESTING FOR FURTHER TESTING. plan: Will try for CT angio head and neck to evaluate for any critical stenosis as she has a history of arterial stenosis Major depressive disorder: At last visit we discussed her depression and she was willing to start Wellbutrin for her depression. Unfortunately she does not believe Wellbutrin was helpful for her depressed mood and actually caused her more palpitations has a side effect. She will like to wean off of Wellbutrin over the next few weeks by taking a tablet every other day for the next 3 weeks. .. Hypothyroidism: Most recent labs showing elevated TSH. We have increased her levothyroxine to 200 mcg. Has yet to get her TSH assessed. .. Obstructive sleep apnea: Has recently been diagnosed with obstructive sleep apnea has been started on a CPAP machine at night which she is using a nightly basis. She still feels tired during the daytime and attributes this to perhaps having anemia again or her thyroid. .. Anemia: . She does report being somewhat fatigued and having heart palpitations and dizziness on occasion. Of note she does admit to heavy menstruations which is likely the cause of anemia. Has not been able to tolerate iron supplementation due to constipation. She is willing to try stool softener and supplemental fiber [facility] Medical History KESHAWN (obstructive sleep apnea) Somnolence, daytime Obesity (BMI 30-39.9) Surgical History S/P laparoscopic cholecystectomy S/P LASIK surgery History of appendectomy Family History Father Medical history unknown Mother Hypertension Hyperlipidemia Thyroid disease Sister Hypothyroid Family/Other Diabetes Social History Household Members: Friend(s) Housing: Apartment Do you presently have visiting nurse or other home services: No Alcohol intake: unknown Tobacco use type: Smokeless Tobacco e-Cigarette/Vaping Use: Never Used Second Hand Smoke Exposure: No Advance Directives Date on File: 02/11/23 service: No Current occupational status: employed Cognitive needs: No Hearing needs: No Vision needs: Yes Questionnaire Thrive Questionnaire Date Thrive assessed: 10/02/23 BROCK-7 AMB Questionnaire BROCK-7 Date BROCK - 7 assessed: 10/25/21 Source: Developed by Drs. Vinh Rowell, Sharon Calles, Kory Jett and colleagues, with an educational lane from [employer]. Review of Systems Const Denies headache(s) Eyes Denies loss of vision ENT Details: + DIZZINESS WHILE LYING DOWN ON RIGHT SIDE Reports vertigo, Reports dizziness, Denies headache(s) and Denies sore throat Card Denies chest pain, Denies leg edema and Denies lightheadedness Resp Denies cough, Denies hemoptysis and Denies wheezing GI Denies abdominal pain, Denies melena, Denies constipation, Denies diarrhea and Denies vomiting Denies urinary frequency, Denies dysuria and Denies urinary urgency Musc Denies arthralgias, Denies joint swelling, Denies numbness and Denies tingling Neuro Denies behavioral changes, Reports vertigo, Reports dizziness, Denies headache(s), Denies loss of vision, Denies memory loss, Denies numbness and Denies tingling Psych Denies anxiety, Denies behavioral changes, Denies depression, Denies memory loss and Denies panic attacks Jeremy/Lymph Denies easy bleeding and Denies easy bruising Aller/Immun Denies wheezing Physical exam (Primary Care) Tobacco/Smoking Status: Tobacco use Status Tobacco use date assessed 10/02/23 05/19/24 09:53 Tobacco use type Smokeless Tobacco 05/19/24 09:53 e-Cigarette/Vaping Use Never Used 05/19/24 09:53 Thrive Assessment: Date of Thrive Assessment Date Thrive assessed 10/02/23 05/19/24 09:53 Telehealth Telehealth Telehealth Platform: Telephone Location of provider rendering services: practice address Location of patient: address on file Patient Identification confirmed using: Name, : Yes Telehealth method: voice only Patient verbally consented to treatment: Yes Patient verbally consented to billing insurance company: Yes Patient informed of any privacy concerns related to visit: Yes Minutes spent on Phone/Video with Pt.: 15 Coding Level of Care Code Tele Est Pt Level 4 (13171) Diagnoses Intracranial vascular stenosis I67.9 BROCK (generalized anxiety disorder) F41.1 Abnormal stress test R94.39 Assessment & Plan Assessment & Plan (1) Intracranial vascular stenosis: Code(s): I67.9 - Cerebrovascular disease, unspecified Category: Medical Plan: Has a distant history of an apparent intracranial vascular stenosis. Over the last few months patient reports having lightheadedness and dizziness when lying down her right side. She has been trying Leticia maneuvers and meclizine without any significant relief. Will send for CT angiogram to evaluate for critical stenosis in the head or neck. (2) BROCK (generalized anxiety disorder): Code(s): F41.1 - Generalized anxiety disorder Category: Medical Plan: Patient reports she has been talking to a mental health therapist whom believes she has anxiety. She is interested in starting daily anxiety medication. Will start sertraline 50 mg (3) Abnormal stress test: Code(s): R94.39 - Abnormal result of other cardiovascular function study Category: Medical Plan: As per HPI patient an response to Wicho protocol stress test. Will be getting echocardiogram and nuclear medicine stress test to further evaluate. Orders: Orders TSH reflex Free T4 Today E03.9 - Hypothyroidism, unspecified CT angio head neck Today I67.9 - Cerebrovascular disease, unspecified Basic Metabolic Panel Today I67.9 - Cerebrovascular disease, unspecified Medications: New sertraline 50 mg PO DAILY 30 days 30 tabs 1RF F41.1 - Generalized anxiety disorder Discontinued bupropion HCl SR (Wellbutrin SR) Discontinued Reason: Doctor's Order 100 mg PO DAILY 30 days 30 tabs 0RF F33.1 - Major depressive disorder, recurrent, moderate
== END 2024-05-19 11:26 | disposition home or self-care (01) ==
LOC: HO.HMCH 09:53
PROVIDERS: PCP Physician Assistant; Visit Provider Physician Assistant
DX: I67.9 Cerebrovascular disease, unspecified (principal); F41.1 Generalized anxiety disorder; R94.39 Abnormal result of other cardiovascular function study

== ENCOUNTER → 2024-05-19 09:53 | Outpatient (BNVA) | payer OTHER, SELFPAY | PROVIDERS: PCP Physician Assistant; Visit Provider Physician Assistant ==

== ENCOUNTER 2024-06-02 13:35 | Outpatient (REF) | payer OTHER, SELFPAY ==
[2024-06-02 15:38] LABS: Anion Gap 14 (12-20); Blood Urea Nitrogen 12 mg/dL (9-16); Calcium 9.6 mg/dL (8.4-10.2); Carbon Dioxide 21 mmol/L (22-29); Chloride 106 mmol/L (96-108); Estimated Glomerular Filt Rate > 60; Glucose Random 100 mg/dL (60-115); Potassium 3.8 mmol/L (3.3-5.1); Sodium 137 mmol/L (135-145)
[2024-06-02 16:01] LABS: Estimated Average Glucose 120 mg/dL; Hemoglobin A1C 111.3518 umol/L; Hemoglobin A1c % 5.8 % (<6.0); Total Hemoglobin (HGBA1C) 2779.0189 umol/L
== END 2024-06-02 13:36 | disposition home or self-care (01) ==
LOC: HO.LAB 13:35
PROVIDERS: PCP Physician Assistant; Visit Provider Physician Assistant
DX: E03.9 Hypothyroidism, unspecified (principal); R73.01 Impaired fasting glucose; I67.9 Cerebrovascular disease, unspecified
CPT/HCPCS: 36415; 80048; 83036; 84443

== ENCOUNTER → 2024-06-18 12:53 | Outpatient (REF) | payer OTHER, SELFPAY ==
--- NOTE | 2024-06-18 12:55 | CA_ITS ---
Transthoracic Echocardiogram Patient (Last, First, Middle): Jairon Esparza M Gender: Female Date of : 1985 Age: 38 Procedure Date: 06/18/2024 Procedure Type: Transthoracic Echocardiogram Location: OP Height: 157.48 cm Weight: 97.52 kg BSA: 1.97 m2 Heart Rate: bpm BP: 110 / 74 mmHg Horizontal Boring Mill Set Up Operator: BELLA Referring MD: Adiel Villanueva PA-C Commercial Service Technician: Delfino Gimenez MD Symptoms: R06.02 - Shortness of breath Study Quality: Fair ECG Rhythm: Sinus Conclusions: - Essentially normal study Findings Left Ventricle Normal left ventricular size, thickness, and systolic function. The visually estimated ejection fraction is between 60-65%. Spectral Doppler is indicative of a normal filling pattern. Right Ventricle Normal right ventricular cavity size and systolic function. Atria Both atria are normal in size. There is no evidence of interatrial shunt. Aortic Valve Normal aortic valve structure and function. There is no aortic valve stenosis. There is no aortic valve regurgitation. Mitral Valve Normal mitral valve structure and function. There is trace mitral valve regurgitation. There is no mitral valve stenosis. Pulmonic Valve The pulmonic valve is likely normal. Tricuspid Valve Normal tricuspid valve structure. There is trace tricuspid valve regurgitation. The right ventricular systolic pressure is normal. The right ventricular systolic pressure is 23 mmHg. Normal right atrial pressure. There is no evidence of pulmonary hypertension. Great Vessels All visible segments of the aorta are normal in size. The pulmonary artery was not well visualized. Venous The inferior vena cava is normal in size and collapses greater than 50% with inspiration. Pericardium/Pleural There is no evidence of pericardial effusion. Prior Study Comparison No prior study available for comparison. Measurements 2D Linear Measurements IVSd: 0.94 0.6-0.9/0.6-1.0 cm LVIDd: 4.38 3.9-5.3/4.2-5.9 cm LVIDd Index: 2.22 2.4-3.2/2.2-3.1 cm/m2 LVIDs: 2.97 2.0-3.6 cm LVPWd: 0.81 0.7-1.1 cm LA Diam: 3.90 2.7-3.8/3.0-4.0 cm LAIDs Index: 1.98 1.5-2.3 cm/m2 LV Mass: 152.41 67-162/88-224 g LV Mass Index: 77.36 43-95/49-115 g/m2 LVOT Diam: 1.90 3.0+(-)1.3 cm 2D Systolic Function EF 4C: 64.00 >55% EF 2C: 64.70 >55% EF BiP: 63.30 >55% Mitral Valve MV Pk E: 1.05 MV PK A: 0.37 MV Decel Time: 150.00 E/A: 2.80 E'Lateral: 14.60 E'Medial: 8.70 E/E' Med: 12.10 E/E' Lat: 7.20 PHT: 44.00 MVA PHT: 5.00 Decel [place]: 7.05 Aortic Valve AoV Pk Kimani: 1.38 AoV Mn Kimani: 0.87 AoV VTI: 0.30 AoV Pk Grad: 8.00 Aov Mn Grad: 3.00 STEFANI Cont.VTI: 2.12 LVOT LVOT Pk Kimani: 1.01 LVOT Mn Kimani: 0.70 LVOT VTI: 0.23 LVOT Pk Grad: 4.00 LVOT Mn Grad: 2.00 LVOT Diam: 1.90 LVOT Area: 2.84 Diastolic Function MV Pk E: 1.05 MV Pk A: 0.37 E/A: 2.80 E'Medial: 8.70 E/E' Med: 12.10 E' Laterial: 14.60 E/E' Lat: 7.20 Right Ventricle TAPSE (mm): 22.80 TVS' Kimani: 11.00 Tricuspid Valve TR Pk Kimani: 2.24 TR Pk Grad: 20.00 RA Press: 3.00 RVSP: 23.00 Great Vessels Aorta Sinus of Valsalva: 2.41 2.0-3.5 cm Ao Asc: 2.60 2.1-3.4 cm Ao Arch: 2.50 Updated in Other Vendor System with Status of Final Delfino Gimenez MD electronically signed on 06/18/2024 5:43:01 PM with status of Final
== END ==
LOC: HO.CARD 12:53
PROVIDERS: PCP Physician Assistant; Visit Provider Physician Assistant
DX: R06.02 Shortness of breath (principal)
CPT/HCPCS: 93306

== ENCOUNTER → 2024-06-18 12:55 | Outpatient (BNV) | payer OTHER, SELFPAY | PROVIDERS: PCP Physician Assistant; Visit Provider Internal Medicine Cardiovascular Disease | DX: R06.02 Shortness of breath (principal) | CPT/HCPCS: 93306 ==

== ENCOUNTER 2024-07-15 10:25 | Outpatient (REF) | payer OTHER, SELFPAY ==
--- NOTE | ~2024-07-15 | CT_ITS ---
EXAMINATION: CTA HEAD AND NECK WITH AND WITHOUT CONTRAST CLINICAL INFORMATION: Cerebrovascular disease COMPARISON: CT head on 08/06/2023 TECHNIQUE: Test bolus sequences followed by intravenous administration of 70 mL of Omnipaque 350 contrast. Helical imaging was performed in the axial plane from the skull vertex to the thoracic inlet. Delayed postcontrast imaging of the head was also performed. The data was processed at the lead medical technologist workstation for generation of MIP sequences. Angled MIPs and volume rendered reformatted images were also generated at an offline 3D workstation. Stenoses are assessed in accordance with NASCET criteria unless otherwise indicated. This CT examination was performed using dose optimization techniques as appropriate, variously including the following: *Automated exposure control *Adjustment of mA and/or kV according to patient size (this includes techniques or standardized protocols for targeted exams where dose is matched to indication/reason for exam; i.e. extremities or head) *Use of iterative reconstruction technique DLP: 2366 mGy-cm FINDINGS: BRAIN: No acute intracranial hemorrhage or infarct. The english-white matter differentiation is preserved. No midline shift or hydrocephalus. No acute extra-axial fluid collections. The osseous structures are unremarkable. No orbital pathology. The paranasal sinuses and mastoid air cells are clear. Angiogram evaluation is limited by technique. CTA NECK: Common origin of the innominate and left common carotid arteries, normal variant. The innominate and bilateral subclavian arteries are patent. The origins and cervical segments of the common carotid arteries as well as the common carotid artery bifurcations are patent bilaterally. The cervical segments of the internal carotid arteries are also patent bilaterally. The origins and cervical segments of the vertebral arteries are patent bilaterally. No hemodynamically significant stenosis, dissection, or aneurysm. The visualized branches of the external carotid arteries are unremarkable. CTA HEAD: Anterior circulation: The petrous, cavernous, and supraclinoid segments of the internal carotid arteries are patent bilaterally. The major branches of the anterior and middle cerebral arteries as well as anterior communicating artery complex are patent. No large vessel occlusion, saccular aneurysm, or dissection. Posterior circulation: The intracranial vertebral arteries are patent bilaterally. The basilar artery is normal in course and caliber. The posterior cerebral and superior cerebellar arteries arise normally from the basilar summit. No aneurysm. On delayed imaging, the venous structures demonstrate normal contrast opacification. No filling defect. No abnormal intracranial enhancement. Soft tissues: No suspicious neck mass or cervical adenopathy. Lungs: Clear. Bones: No acute osseous abnormality. No lytic or blastic osseous lesions. Degenerative changes of the visualized spine. CT/CT angio head neck IMPRESSION: 1. CT head demonstrates no acute intracranial hemorrhage or edematous infarct. 2. CTA head demonstrates no large vessel occlusion, saccular aneurysm, or dissection. 3. CTA neck demonstrates no hemodynamically significant stenosis, dissection, or aneurysm. Electronically signed by: Luna Kuhn MD 07/15/2024 01:22 PM EST
[2024-07-15] MEDS: iohexoL 350 MG/ML 75 ML INFUS..BTL 70 ML IV (11:42)
== END 2024-07-15 10:26 | disposition home or self-care (01) ==
LOC: HO.CT 10:25
PROVIDERS: PCP Physician Assistant; Visit Provider Physician Assistant
DX: I67.9 Cerebrovascular disease, unspecified (principal)
CPT/HCPCS: 70496; 70498; Q9967

== ENCOUNTER → 2024-08-18 10:02 | Outpatient (REF) | payer OTHER, SELFPAY ==
--- NOTE | 2024-08-18 10:05 | CA_ITS ---
Acquisition Time: 2024-08-18 10:08:36 Total Exercise Time: 00:04:05 Test Indications: Dyspnea,Abnormal Treadmill Test Medications: BUPROPION LEVOTHYROXINE CYCLOBENZAPRINE MECLIZINE NAPROXEN Protocol: WICHO Max HR: 160 BPM 87% of Pred: 182 BPM Max BP: 170/60 mmHG Max Work Load: 5.8 METS Exercise Stress Test with exercise 4 mins 5 secs of Wicho Protocol, acheiving 77% MPHR, with reports of lightheadedness adn pt swaying, stopped test and lowered pt to the ground, sitting up, no LOC, continues to be dizzy with mild nausea, no associated chest discomfort, without any arrythmias, with normotensive response to exercise. Without EKG changes noted. Pt recovered with IVF and sat back in recliner. Reviewed with Dr. Ammy jo to switch to Lexiscan. Pt feeling back to baseline. Test switched at 22 minutes into recovery. Pharmacological stress test with Lexiscan, with reports of dizziness, without any arrythmias, with normotensive response to exercise. Nondiagnostic EKG for ischemia. In recovery, pt treated with IVP Aminophylline 75mg to reverse Lexiscan, after which pt feeling back to baseline. Nuclear images pending. Test reviewed with Dr. Gimenez. Referred By: Adiel Villanueva Electronically Signed By: Ramin Bailey
--- OUTSIDE RECORDS SUMMARY | 2024-08-18 11:19 | XMS_ITS | Clinical Summary ---
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 Name Role Phone Unavailable Primary Care Provider Unavailabl e Social History Tobacco Use Types Packs/Day Years Used Date Smoking Tobacco: Never Assessed Sex and Gender Information Value Date Recorded Sex Assigned at Not on file Gender Identity Not on file Sexual Orientation Not on file Plan of Treatment Health Maintenance Due Date Last Done Comments DTaP,Tdap,and Td Vaccines (1 - Tdap) 2004 Hepatitis B Vaccines (1 of 3 - 19+ 3-dose series) 2004 Cervical Cancer Screening: P ap Smear 2006 COVID-19 Vaccine ( - 2023-2 5 season) 2024 Influenza Vaccine (#1) 2024 HIB Vaccines Aged Out No longer eligi ble based on patient's age to complete this topic HPV Vaccines Aged Out No longer eligi ble based on patient's age to complete this topic Hepatitis A Vaccines Aged Out No long er eligible based on patient's age to complete this topic IPV Vaccines Aged Out No longer eligi ble based on patient's age to complete this topic MMR Vaccines Aged Out No longer eligi ble based on patient's age to complete this topic Meningococcal ACWY Vaccine Aged Out N o longer eligible based on patient's age to complete this topic Pneumococcal Vaccine: Pediat rics (0 to 5 Years) and At-Risk Patients (6 to 64 Years) Aged Out No longer eligible b ased on patient's age to complete this topic RSV Immunization Patients Un abbie 20 months Aged Out No longer eligible b ased on patient's age to complete this topic Varicella Vaccines Aged Out No longer eligible based on patient's age to complete this topic
== END ==
LOC: HO.CARD 10:02
PROVIDERS: PCP Physician Assistant; Visit Provider Physician Assistant
DX: R06.02 Shortness of breath (principal); R94.39 Abnormal result of other cardiovascular function study
CPT/HCPCS: 93017; J0280; J2785

== ENCOUNTER → 2024-08-18 10:05 | Outpatient (BNV) | payer OTHER, SELFPAY | PROVIDERS: PCP Physician Assistant | DX: R42 Dizziness and giddiness (principal); R11.0 Nausea | CPT/HCPCS: 78452; 93016; 93018 ==

== ENCOUNTER 2024-10-06 13:33 | Outpatient (AMB) | payer OTHER, SELFPAY ==
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
[2024-10-06 13:43] VITALS: BP 120/78; PULSE 80; O2SAT 98; BMI 38.0
--- OUTSIDE RECORDS SUMMARY | 2024-10-06 16:26 | XMS_ITS | Clinical Summary ---
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 Phone Unavailable Primary Care Provider Unavailabl e Social History Tobacco Use Types Packs/Day Years Used Date Smoking Tobacco: Never Assessed Comments Unknown Sex and Gender Information Value Date Recorded Sex Assigned at Not on file Legal Sex Female 11:13 PM EST Gender Identity Not on file Sexual Orientation Not on file Plan of Treatment Health Maintenance Due Date Last Done Comments DTaP,Tdap,and Td Vaccines (1 - Tdap) 2004 Hepatitis B Vaccines (1 of 3 - 19+ 3-dose series) 2004 Cervical Cancer Screening: P ap Smear 2006 COVID-19 Vaccine (2023-2 5 season) 2024 Influenza Vaccine (#1) 2024 [...] patient's age to complete this topic Meningococcal B Vacine Aged Out No lo nger eligible based on patient's age to complete [...]
== END 2024-10-06 14:26 | disposition home or self-care (01) ==
LOC: HO.HMCH 13:34
PROVIDERS: PCP Physician Assistant; Visit Provider Physician Assistant
DX: Z00.00 Encounter for general adult medical examination without abnormal findings (principal); E03.9 Hypothyroidism, unspecified; F45.8 Other somatoform disorders; J45.990 Exercise induced bronchospasm; F33.1 Major depressive disorder, recurrent, moderate; G47.33 Obstructive sleep apnea (adult) (pediatric); I25.9 Chronic ischemic heart disease, unspecified; E66.812 Obesity, class 2

== ENCOUNTER → 2024-10-06 13:33 | Outpatient (BNVA) | payer OTHER, SELFPAY | PROVIDERS: PCP Physician Assistant; Visit Provider Physician Assistant | DX: Z00.00 Encounter for general adult medical examination without abnormal findings (principal); Z23 Encounter for immunization; E03.9 Hypothyroidism, unspecified; F45.8 Other somatoform disorders; J45.990 Exercise induced bronchospasm; F33.1 Major depressive disorder, recurrent, moderate; G47.33 Obstructive sleep apnea (adult) (pediatric); I25.9 Chronic ischemic heart disease, unspecified; E66.812 Obesity, class 2; Z68.38 Body mass index [BMI] 38.0-38.9, adult; Z79.899 Other long term (current) drug therapy | CPT/HCPCS: 90471; 90472; 90677; 90715; 96127 ==

== ENCOUNTER 2025-04-08 13:50 | Outpatient (AMB) | payer OTHER, SELFPAY ==
[2025-04-08 13:53] VITALS: BP 124/82; PULSE 84; TEMP 36.3; O2SAT 99; BMI 39.3
--- NOTE | 2025-04-08 13:53 | A.OFFPC_ITS ---
Vital Signs 04/08/25 13:53 Height 5 ft 2 in Weight 215 lb BMI 39.3 BP 124/82 Blood Pressure Location Lt brachial Position Sitting Pulse 84 Pulse Source Pulse Oximeter Temp 97.3 F Temp Source Temporal Artery Scan Pulse Oximetry (%) 99 Oxygen Delivery Method Room Air Intake Visit Reasons: f/u Hypothyroid Allergies sulfamethoxazole (From Bactrim) Allergy (Intermediate, Verified 04/08/25 14:17) Rash all over body, swelling & redness in face trimethoprim (From Bactrim) Allergy (Intermediate, Verified 04/08/25 14:17) Rash all over body, swelling & redness in face prednisone Adverse Reaction (Intermediate, Verified 04/08/25 14:17) night sweats oxycodone (OxyContin) Adverse Reaction (Unknown, Verified 04/08/25 14:17) itchiness Medication List - Last Reconciled 04/08/25 by Adiel Villanueva PA-C albuterol sulfate 90 mcg/actuation 1 inh inhalation QID PRN 30 days blood pressure monitor (Blood Pressure Kit) As directed cyclobenzaprine 10 mg PO TID PRN 15 days fluticasone propionate 50 mcg/actuation (Flonase Allergy Relief) 1 spray intranasal DAILY 30 days levothyroxine 200 mcg PO DAILY meclizine 25 mg PO TID PRN naproxen 500 mg PO BID 30 days Tobacco use date assessed: 04/08/25 Dental Screening Dental Screen Date: 04/08/25 Did you have a dental visit in the last 12 months?: No Did you have a dental problem in the last 6 months where you did not have access to dental care?: No Was dental information given to patient?: Patient declined HPI f/u Hypothyroid HPI Details Patient is a 39-year-old female here today for a follow-up visit. Patient's past medical history significant for obesity, anemia, hypothyroidism, KESHAWN Concern-> Patient reports she has been having a lot of difficulty concentrating at work and on her studies. She is currently trying to get a criminal justice degree though having a very difficult time obtaining information. She reports she has had this difficulty her entire life and never did get it school. She wonders if she has a ADD or ADHD diagnoses. She is interested in trying medication to help her focus. Will try non stimulant ADHD medication should tear Abnormal stress test: Due to the dizziness she did undergo a cardiac stress test which did reveal horizontal ST depression inferiorly and V5-V6 with slow gradual improvement in recovery. She then underwent a nuclear stress test which was essentially normal. Recommendations were made to do a coronary artery angiogram to evaluate for any coronary artery disease thus will be trying to schedule at [facility].. .. Hypothyroidism: patient continues on levothyroxine 200 mcg, would need a TSH reassessment to evaluate any further need of med adjustment .. Smokeless tobacco use: Continues to regularly use a smokeless tobacco vaporizery, she does understand this is not great for her lungs. We did discuss the possibility of her lungs being the problem she gets dizzy upon exertion and has low exercise tolerance. .. Obstructive sleep apnea: Has recently been diagnosed with obstructive sleep apnea has been started on a CPAP machine at night which she is using a nightly basis. She still feels tired during the daytime and attributes this to perhaps having anemia again or her thyroid. ON LICENSE OF [facility] Medical History KESHAWN (obstructive sleep apnea) Somnolence, daytime Obesity (BMI 30-39.9) Surgical History S/P laparoscopic cholecystectomy S/P LASIK surgery History of appendectomy Family History Father Medical history unknown Mother Hypertension Hyperlipidemia Thyroid disease Sister Hypothyroid Family/Other Diabetes Social History Household Members: Friend(s) Housing: Apartment Do you presently have visiting nurse or other home services: No Alcohol intake: unknown Patient Tobacco Use Status: Never used Tobacco e-Cigarette/Vaping Use: Currently Using Second Hand Smoke Exposure: No Advance Directives Date on File: 02/11/23 service: No Current occupational status: employed 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 1. Little interest or pleasure in doing things: several days 2. Feeling down, depressed, or hopeless: several days 3. Trouble falling or staying asleep, or sleeping too much: several days 4. Feeling tired or having little energy: several days 5. Poor appetite or overeating: not at all 6. Feeling bad about yourself - or that you are a failure or have let yourself or your family down: several days 7. Trouble concentrating on things, such as reading the newspaper or watching television: several days 8. Moving or speaking so slowly that other people could have noticed. Or the opposite - being so fidgety or restless that you have been moving around a lot more than usual: not at all 9. Thoughts that you would be better off or of hurting yourself in some way: not at all Total score: 6 Depression Screening Interpretation: Positive Depression Screening Follow-up: Existing condition Depression Screening Done: Yes 88608 - PHQ-9 Billing: Yes Source: Developed by Drs. Vinh Rowell, Sharon Calles, Kory Jett and colleagues, with an educational lane from [employer]. Thrive Questionnaire Date Thrive assessed: 10/06/24 I am a: Patient What is your living situation today?: I have a steady place to live Within the past 12 months, did the food you bought not last and you didn't have the money to get more?: Never true Within the past 12 months, did you worry whether your food would run out before you got money to buy more?: Never true Do you have trouble paying for medicines?: No Do you have trouble getting transportation to medical appointments?: No Do you have trouble paying your heating and electricity bill?: Yes Do you have trouble taking care of your child, family member or friend?: No Do you have trouble with day-to-day activities such as bathing, preparing meals, shopping, managing finances, etc.?: Yes Are you currently unemployed and looking for a job?: No Are you interested in more education?: No Please select the resources that you would like help with: Utilities THRIVE Score: 1 AUDIT C Alcohol Use Questionnaire (AUDIT-C) 1. How often do you have a drink containing alcohol?: Never 3. How often do you have six or more drinks on one occasion?: Never Total Score: 0 BROCK-7 AMB Questionnaire BROCK-7 Date BROCK - 7 assessed: 10/06/24 Feeling nervous, anxious, or on edge: 1 = Several days Not being able to stop or control worryin = Several days Worrying too much about different things: 1 = Several days Trouble relaxin = Several days Being so restless that it is hard to sit still: 1 = Several days Becoming easily annoyed or irritable: 1 = Several days Feeling afraid as if something awful might happen: 1 = Several days Total BROCK-7 score (0-4 normal; 5-9 mild; 10-14 moderate; 15-21 severe): 7 Source: Developed by Drs. Vinh Rowell, Sharon Calles, Kory Jett and colleagues, with an educational lane from [employer]. BROCK-7 Assessment Billing BROCK-7 Assessment Tool: BROCK-7 Assessment 11562 Review of Systems Const Denies headache(s) Eyes Denies loss of vision ENT Denies vertigo, Denies dizziness, Denies headache(s) and Denies sore throat Card Denies chest pain, Denies leg edema and Denies lightheadedness Resp Denies cough, Denies hemoptysis and Denies wheezing GI Denies abdominal pain, Denies melena, Denies constipation, Denies diarrhea and Denies vomiting Denies urinary frequency, Denies dysuria and Denies urinary urgency Musc Denies arthralgias, Denies joint swelling, Denies numbness and Denies tingling Neuro Denies Abnormal speech present, Denies behavioral changes, Denies vertigo, Denies dizziness, Denies headache(s), Denies loss of vision, Denies memory loss, Denies numbness and Denies tingling Psych Denies anxiety, Denies behavioral changes, Denies depression, Denies memory loss and Denies panic attacks Jeremy/Lymph Denies easy bleeding and Denies easy bruising Aller/Immun Denies wheezing Physical exam (Primary Care) Vital Signs: Last Vital Signs Temp 97.3 F 04/08/25 13:53 Pulse 84 04/08/25 13:53 BP 124/82 04/08/25 13:53 Pulse Ox 99 04/08/25 13:53 Oxygen Delivery Method Room Air 04/08/25 13:53 BMI result Body Mass Index 39.3 BMI Assessment/Plan discussion: High BMI High, discussed plan: lifestyle, weight reduction, dietary and physical activity Tobacco/Smoking Status: Tobacco use Status Tobacco use date assessed 04/08/25 04/08/25 14:07 Patient Tobacco Use Status Never used Tobacco 04/08/25 14:07 Tobacco use type 04/08/25 14:07 e-Cigarette/Vaping Use Currently Using 04/08/25 14:07 PHQ-9: PHQ-9 Score PHQ-9: Total score 6 04/08/25 14:17 Depression Screening Interpretation: Positive Depression Screening Follow-up: Existing condition Thrive Assessment: Date of Thrive Assessment Date Thrive assessed 10/06/24 04/08/25 14:07 Const General: healthy appearing, no acute distress, alert and awake Nutritional Appearance: well nourished Orientation/consciousness: oriented to person, oriented to place and oriented to time HENMT Ears: TM's normal bilaterally General nose exam: Normal nasal mucous membranes and turbinates present Eyes Conjunctivae: conjunctivae normal Sclerae: sclerae normal Pupils: Equal, round and reactive pupils present Neck Neck: Yes no lymphadenopathy and Yes no JVD Thyroid: Thyroid normal Carotids: no bruits Resp Effort & Inspection: normal respiratory effort and not tachypneic Auscultation: no crackles, no rales, no rhonchi and no wheezes Cardio Rate: regular rate Rhythm: regular rhythm Heart sounds: no murmurs and normal S1 and S2 GI Palpation (GI): Soft to palpation, nontender, no hepatomegaly and no splenomegaly Auscultation: normal bowel sounds Skin General skin exam: no rashes or lesions noted and dry skin Neuro General: oriented to person, oriented to place and oriented to time Cranial nerves: Yes Equal, round and reactive pupils present Speech: No Abnormal speech present Gait exam (Neuro): Normal gait present Motor exam (neuro): no tremor noted Extrem Right upper extremity: full ROM Left upper extremity: full ROM Right lower extremity: full ROM; no edema Left lower extremity: full ROM; no edema Psych Mental Status: mental status grossly normal Speech and movement: Normal speech and movement present Affect: normal affect Attitude: cooperative Thought process: Normal thought process present Coding Level of Care Code Est Pt Level 4 (05508) Diagnoses Attention or concentration deficit R41.840 Attention deficit type: attention or concentration deficit Hypothyroidism, unspecified type E03.9 Hypothyroidism type: unspecified Exercise-induced asthma J45.990 MDD (major depressive disorder), recurrent episode, moderate F33.1 KESHAWN (obstructive sleep apnea) G47.33 Class 2 obesity E66.812 Ischemia of apical anterior segment of left ventricle of heart I25.9 Additional Codes PHQ-9 - 71105 - PHQ-9 Billing: Yes ([id number]) BROCK-7 Assessment Billing - BROCK-7 Assessment Tool: BROCK-7 Assessment 70624 ([id number]) Assessment & Plan Assessment & Plan (1) ADD (attention deficit disorder): Code(s): F98.8 - Other specified behavioral and emotional disorders with onset usually occurring in childhood and adolescence Category: Medical Qualifiers: Attention deficit type: attention or concentration deficit Qualified Code(s): R41.840 - Attention and concentration deficit Plan: As per HPI patient having attention issues particularly at work and when reading. She reports she has had these problems ever since she was a school-age kid and never did well in school. She feels she has ADD in his interested in tr devon a medication to help her with her attention focus on her job detail tasks and on reading. (2) Hypothyroid: Comment: Found to have hypothyroidism back about 7-8 years ago and has been on thyroid replacement therapy. Code(s): E03.9 - Hypothyroidism, unspecified Category: Medical Qualifiers: Hypothyroidism type: unspecified Qualified Code(s): E03.9 - Hypothyroidism, unspecified Plan: Patient's most recent TSH stable, will continue her current dose levothyroxine and continue to monitor TSH to assure normal. (3) Exercise-induced asthma: Code(s): J45.990 - Exercise induced bronchospasm Category: Medical Plan: Patient's signs and symptoms are somewhat consistent with exercise-induced asthma. She does use smokeless tobacco quite regularly and she does understand she needs to quit. Will supply patient with an albuterol inhaler to use before being physically active to help her exercise tolerance. (4) MDD (major depressive disorder), recurrent episode, moderate: Code(s): F33.1 - Major depressive disorder, recurrent, moderate Category: Medical Plan: Patient's PHQ-9 score positive for mild depression which has been existing condition for her. She has tried Wellbutrin in the past though had side effect. Currently using sertraline which is somewhat effective. She reports her job is most of her stress which has caused her mood to be low. (5) KESHAWN (obstructive sleep apnea): Comment: HER HOME-BASED SLEEP STUDY, IS THE POSITIVE FOR SLEEP APNEA EVEN THOUGH IT IS MILD. TOTAL SLEEP TIME AHI 5.1 SUPINE POSITION AHI 6.6, SNORING FOR 33% OF THE SLEEP TIME. , ORDINARILY WE WOULD TREAT MILD SLEEP APNEA WITH CONSERVATIVE MEASURES INCLUDING AGGRESSIVE WEIGHT REDUCTION AND POSITION THERAPY. BUT IN HER CASE SHE IS VERY SYMPTOMATIC, WITH EXCESSIVE DAYTIME SLEEPINESS AND DIFFICULTY IN SLEEPING AT NIGHT. SO I WILL GO AHEAD AND ORDER IS CPAP EQUIPMENT FOR HER, GIVEN INSTRUCTIONS FOR THE USE OF CPAP. WILL MONITOR HER CLOSELY, REVISIT 6 WEEKS. Code(s): G47.33 - Obstructive sleep apnea (adult) (pediatric) Category: Medical Plan: CPAP management with updates to mask equipment to ensure effective therapy outcomes and comfort. (6) Class 2 obesity: Code(s): E66.812 - Obesity, class 2 Category: Medical Plan: Patient does understand her BMI is over 35 and work on being more physically active and adapting to better eating habits to reduce her weight (7) Ischemia of apical anterior segment of left ventricle of heart: Code(s): I25.9 - Chronic ischemic heart disease, unspecified Category: Medical Plan: Patient has chronic dizziness and shortness of breath on physical exertion. Patient has a history of an abnormal cardiac stress test. There was reports of ischemia in the anterior apex region during the stress test. CT angiogram of the heart was recommended. Orders: Orders Comprehensive [place]. Panel Fast 04/08/25 R73.01 - Impaired fasting glucose Complete Blood Count no Diff 04/08/25 D50.9 - Iron deficiency anemia, unspecified IRON PROFILE 04/08/25 D50.9 - Iron deficiency anemia, unspecified Hemoglobin A1c 04/08/25 R73.01 - Impaired fasting glucose Referrals Cardiology Referral I25.9 - Chronic ischemic heart disease, unspecified Medications: New atomoxetine 25 mg PO DAILY 30 caps 0RF 30 days F98.8 - Other specified behavioral and emotional disorders with onset usually occurring in childhood and adolescence Refilled naproxen 500 mg PO BID 60 tabs 1RF pain 30 days E03.9 - Hypothyroidism, unspecified
== END 2025-04-08 14:42 | disposition home or self-care (01) ==
LOC: HO.HMCH 13:51
PROVIDERS: PCP Physician Assistant; Visit Provider Physician Assistant
DX: R41.840 Attention and concentration deficit (principal); F33.1 Major depressive disorder, recurrent, moderate; E66.812 Obesity, class 2; Z68.39 Body mass index [BMI] 39.0-39.9, adult; E03.9 Hypothyroidism, unspecified; J45.990 Exercise induced bronchospasm; G47.33 Obstructive sleep apnea (adult) (pediatric); I25.9 Chronic ischemic heart disease, unspecified

== ENCOUNTER → 2025-04-08 13:50 | Outpatient (BNVA) | payer OTHER, SELFPAY | PROVIDERS: PCP Physician Assistant; Visit Provider Physician Assistant | DX: E03.9 Hypothyroidism, unspecified (principal); R41.840 Attention and concentration deficit; J45.990 Exercise induced bronchospasm; F33.1 Major depressive disorder, recurrent, moderate; G47.33 Obstructive sleep apnea (adult) (pediatric); E66.812 Obesity, class 2; I25.9 Chronic ischemic heart disease, unspecified; Z79.899 Other long term (current) drug therapy; Z13.31 Encounter for screening for depression | CPT/HCPCS: 96127 ==

== ENCOUNTER 2025-04-30 13:56 | Outpatient (AMB) | payer OTHER, SELFPAY ==
[2025-04-30 14:05] VITALS: BP 118/62; PULSE 68; BMI 39.9
--- NOTE | 2025-04-30 14:05 | A.OFFVIS_ITS ---
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/dizziness/ cp Allergies sulfamethoxazole (From Bactrim) Allergy (Intermediate, Verified 04/08/25 14:17) Rash all over body, swelling & redness in face trimethoprim (From Bactrim) Allergy (Intermediate, Verified 04/08/25 14:17) Rash all over body, swelling & redness in face prednisone Adverse Reaction (Intermediate, Verified 04/08/25 14:17) night sweats oxycodone (OxyContin) Adverse Reaction (Unknown, Verified 04/08/25 14:17) itchiness Medication List - Last Reconciled 04/30/25 by Hari Herndon MD albuterol sulfate 90 mcg/actuation 1 inh inhalation QID PRN 30 days atomoxetine 25 mg PO DAILY 30 days blood pressure monitor (Blood Pressure Kit) As directed cyclobenzaprine 10 mg PO TID PRN 15 days fluticasone propionate 50 mcg/actuation (Flonase Allergy Relief) 1 spray intranasal DAILY 30 days levothyroxine 200 mcg PO DAILY meclizine 25 mg PO TID PRN naproxen 500 mg PO BID 30 days HPI Comments Details: Jairon is here for cardiac consultation. She does not have any documented cardiac issues like coronary disease or myocardial infarction or cardiomyopathy. She has had shortness of breath going back many years. It seems that with activity she does get short of breath. She also has various symptoms while lying in bed like not able to breathe extra. She has had jaw pain but not r elated to physical activity. She has had asthma as well as allergies at different times. She came for a stress test and it seems she got quite short of breath but there was no angina. There was question of apical ischemia on the perfusion component. Otherwise, she has got obstructive sleep apnea on CPAP. Obesity. [facility] Medical History KESHAWN (obstructive sleep apnea) Somnolence, daytime Obesity (BMI 30-39.9) Surgical History S/P laparoscopic cholecystectomy S/P LASIK surgery History of appendectomy Family History Father Medical history unknown Mother Hypertension Hyperlipidemia Thyroid disease Sister Hypothyroid Family/Other Diabetes Social History (Updated 04/30/25 @ 14:15 by Piedad Michael) Household Members: Friend(s) Housing: Apartment Do you presently have visiting nurse or other home services: No Alcohol intake: never Patient Tobacco Use Status: Never used Tobacco e-Cigarette/Vaping Use: Currently Using Second Hand Smoke Exposure: No Advance Directives Date on File: 02/11/23 service: No Current occupational status: employed 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 Current occupational exposures/hazards: No Cognitive needs: No Hearing needs: No Vision needs: Yes Review of Systems Const Denies weakness ENT Reports dizziness Card Reports chest pain, Reports chest pain at rest, Reports chest pain with activity, Denies syncope, Denies rapid heart rate, Denies pedal edema, Denies edema, Denies leg edema, Denies lightheadedness, Denies palpitations, Reports dyspnea, Reports dyspnea on exertion and Denies orthopnea Resp Denies cough, Reports dyspnea and Reports dyspnea on exertion GI Denies hematochezia and Denies change in stool character Musc Denies abnormal gait, Denies muscle cramps, Denies muscle weakness, Denies numbness, Denies radiating pain into limb and Denies tingling Neuro Denies abnormal gait, Reports dizziness, Denies syncope, Denies numbness, Denies tingling and Denies weakness Endo Denies palpitations Physical Exam Vital Signs: Last Vital Signs Pulse 68 04/30/25 14:05 BP 118/62 04/30/25 14:05 BMI result Body Mass Index 39.9 Const General: comfortable and no acute distress Orientation/consciousness: patient oriented x3 HEENT Other: Unremarkable Head: Yes normal to inspection Neck Neck: Yes normal visual inspection Chest Chest palpation & inspection: normal inspection of the chest Resp Auscultation: clear to auscultation bilaterally Cardio Palpation: normal PMI Heart sounds: S1 normal heart sound present, S2 normal heart sound present, no gallops, no murmurs and no rubs GI Palpation (GI): Soft to palpation Back/Spine/Pelvis Other: unremarkable Skin General skin exam: no rashes or lesions noted Neuro General: patient oriented x3 Extrem General: Yes normal to inspection Psych Mental Status: mental status grossly normal Office Procedures EKG Details: EKG with underlying sinus rhythm at 68/Min; no ischemic changes; [place]. [id number]-[id number], Complete Assessment & Plan Assessment & Plan (1) SOBOE (shortness of breath on exertion): Code(s): R06.02 - Shortness of breath Category: Medical (2) Abnormal stress test: Code(s): R94.39 - Abnormal result of other cardiovascular function study Category: Medical Plan Cardiac studies reviewed. Baseline EKG unremarkable. Echocardiogram with LVEF of 60-65%. Normal diastolic filling pattern. Normal atrial size. No significant valvular findings. No evidence of pulmonary hypertension. Normal right atrial pressure. In the exercise stress test, patient exercise for 5.8 METS on [place] protocol and reached 77% target heart rate with lightheadedness. In the ETT prior to that, she had [id number] shortness of breath. Any case, she underwent pharmacological stress which was reported as possible small area of apical ischemia. Overall, because of her body habitus, the perfusion abnormality could be just artifactual. Less likely to represent a true defect. We discussed about further evaluation with a coronary CTA to clarify this. Patient agrees. If this is unremarkable, then her symptoms could be just from deconditioning. In that case, weight loss and regular exercise would help. We will see her in follow up after the coronary CTA. Orders: Orders CT Cardiac Coronary Angio Today I25.10 - Atherosclerotic heart disease of agdaagux coronary artery without angina pectoris Basic Metabolic Panel Today R06.02 - Shortness of breath NT Pro B Type Natriuretic Pept Today R06.02 - Shortness of breath Coding Level of Care Code New Pt Level 4 (41553) Complex EM visit Add On G2211 Diagnoses SOBOE (shortness of breath on exertion) R06.02 Abnormal stress test R94.39 CPT Codes EKG - CPT: 56815-[id number], Complete ([id number])
--- OUTSIDE RECORDS SUMMARY | 2025-04-30 14:06 | XMS_ITS | Clinical Summary ---
Author Organization [facility] ity Address [address] [place] [address] Care Team Providers Care Healthcare Recruiter Name Role Phone Unavailable Primary Care Provider [...] Cervical Cancer Screening: P ap Smear 2006 HPV Vaccines (1 - 3-dose SCD M series) 2012 Depression Screening 07/29/2024 COVID-19 Vaccine ( - 2023-2 5 season) 2025 Influenza Vaccine (#1) 2025 RSV Immunization Adult Patie nts (1 - 1-dose 75+ series) 2060 HIB Vaccines Aged Out No longer eligi [...] age to complete this topic Meningococcal B Vaccine Aged Out No l onger eligible based on patient's age to complete this topic Pneumococcal Vaccine: Pediat rics (0 to 5 Years) and At-Risk Patients (6 to 49 Years) Aged Out No longer eligible b ased on patient's age to complete this topic RSV Immunization Patients Un abbie 20 months Aged Out No longer eligible b ased on patient's age to complete this topic Varicella Vaccines Aged Out No longer eligible based on patient's age to complete this topic
== END 2025-04-30 14:46 | disposition home or self-care (01) ==
LOC: HO.HCS 13:57
PROVIDERS: PCP Physician Assistant; Visit Provider Internal Medicine
DX: R06.02 Shortness of breath (principal); R94.39 Abnormal result of other cardiovascular function study
CPT/HCPCS: 93010; 99214; G2211

== ENCOUNTER → 2025-04-30 13:56 | Outpatient (BNVA) | payer OTHER, SELFPAY | PROVIDERS: PCP Physician Assistant; Visit Provider Internal Medicine | DX: R06.02 Shortness of breath (principal) | CPT/HCPCS: 93005 ==

== ENCOUNTER 2025-06-08 14:08 | Outpatient (AMB) | payer OTHER, SELFPAY ==
--- NOTE | 2025-06-08 14:09 | A.OFFPC_ITS ---
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: Not Required per policy Accompanied by: Self / Same As Patient Allergies sulfamethoxazole (From Bactrim) Allergy (Intermediate, Verified 06/08/25 14:30) Rash all over body, swelling & redness in face trimethoprim (From Bactrim) Allergy (Intermediate, Verified 06/08/25 14:30) Rash all over body, swelling & redness in face prednisone Adverse Reaction (Intermediate, Verified 06/08/25 14:30) night sweats oxycodone (OxyContin) Adverse Reaction (Unknown, Verified 06/08/25 14:30) itchiness Medication List - Last Reconciled 06/08/25 by Adiel Villanueva PA-C albuterol sulfate 90 mcg/actuation 1 inh inhalation QID PRN 30 days atomoxetine 25 mg PO DAILY 30 days blood pressure monitor (Blood Pressure Kit) As directed cyclobenzaprine 10 mg PO TID PRN 15 days fluticasone propionate 50 mcg/actuation (Flonase Allergy Relief) 1 spray intranasal DAILY 30 days levothyroxine 200 mcg PO DAILY meclizine 25 mg PO TID PRN naproxen 500 mg PO BID 30 days Tobacco use date assessed: 04/08/25 Dental Screening Dental Screen Date: 04/08/25 HPI F/u ADD ( telehealth) HPI Details Patient is a 39-year-old female being evaluated today via telephone only. Patient's past medical history significant for obesity, anemia, hypothyroidism, KESHAWN. Patient recently started on ADD medication Strattera 25 mg and reports an improvement in her attention and focus. 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 She also reports she has been having bouts of fatigue along with night sweats the has been evident over the last few months. She does use an CPAP machine on a nightly basis with good effect on her sleep. She has upcoming appointment for a CT angiogram to eval for coronary artery disease. She has upcoming appointment with Cardiology and will postpone until after her CT angiogram. [facility] Medical History KESHAWN (obstructive sleep apnea) Somnolence, daytime Obesity (BMI 30-39.9) Surgical History S/P laparoscopic cholecystectomy S/P LASIK surgery History of appendectomy Family History Father Medical history unknown Mother Hypertension Hyperlipidemia Thyroid disease Sister Hypothyroid Family/Other Diabetes Social History Household Members: Friend(s) Housing: Apartment Do you presently have visiting nurse or other home services: No Alcohol intake: never Patient Tobacco Use Status: Never used Tobacco e-Cigarette/Vaping Use: Currently Using Frequency of e-Cigarette/Vaping Use: Daily Second Hand Smoke Exposure: No Advance Directives Date on File: 02/11/23 service: No Current occupational status: employed 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 Current occupational exposures/hazards: No Cognitive needs: No Hearing needs: No Vision needs: Yes Questionnaire Thrive Questionnaire Date Thrive assessed: 10/06/24 I am a: Patient What is your living situation today?: I have a steady place to live Within the past 12 months, did the food you bought not last and you didn't have the money to get more?: Never true Within the past 12 months, did you worry whether your food would run out before you got money to buy more?: Never true Do you have trouble paying for medicines?: No Do you have trouble getting transportation to medical appointments?: No Do you have trouble paying your heating and electricity bill?: Yes Do you have trouble taking care of your child, family member or friend?: No Do you have trouble with day-to-day activities such as bathing, preparing meals, shopping, managing finances, etc.?: Yes Are you currently unemployed and looking for a job?: No Are you interested in more education?: No Please select the resources that you would like help with: Utilities THRIVE Score: 1 BROCK-7 AMB Questionnaire BROCK-7 Date BROCK - 7 assessed: 10/06/24 Source: Developed by Drs. Vinh Rowell, Sharon Calles, Kory Jett and colleagues, with an educational lane from [employer]. Review of Systems Const Details: + night sweats Denies headache(s) Eyes Denies loss of vision ENT Denies vertigo, Denies dizziness, Denies headache(s) and Denies sore throat Card Denies chest pain, Denies leg edema and Denies lightheadedness Resp Denies cough, Denies hemoptysis and Denies wheezing GI Denies abdominal pain, Denies melena, Denies constipation, Denies diarrhea and Denies vomiting Denies urinary frequency, Denies dysuria and Denies urinary urgency Musc Denies arthralgias, Denies joint swelling, Denies numbness and Denies tingling Neuro Denies behavioral changes, Denies vertigo, Denies dizziness, Denies headache(s), Denies loss of vision, Denies memory loss, Denies numbness and Denies tingling Psych Denies anxiety, Denies behavioral changes, Denies depression, Denies memory loss and Denies panic attacks Jeremy/Lymph Denies easy bleeding and Denies easy bruising Aller/Immun Denies wheezing Physical exam (Primary Care) Tobacco/Smoking Status: Tobacco use Status Tobacco use date assessed 04/08/25 06/08/25 14:10 Patient Tobacco Use Status Never used Tobacco 06/08/25 14:10 Tobacco use type 04/29/25 11:42 e-Cigarette/Vaping Use Currently Using 06/08/25 14:10 Thrive Assessment: Date of Thrive Assessment Date Thrive assessed 10/06/24 06/08/25 14:10 Telehealth Telehealth Telehealth Platform: Telephone Location of provider rendering services: practice address Location of patient: address on file Patient Identification confirmed using: Name, : Yes Telehealth method: voice only Patient verbally consented to treatment: Yes Patient verbally consented to billing insurance company: Yes Patient informed of any privacy concerns related to visit: Yes Minutes spent on Phone/Video with Pt.: 11 Coding Level of Care Code Tele Est Pt Level 4 (83814) Diagnoses Attention or concentration deficit R41.840 Attention deficit type: attention or concentration deficit Flushing R23.2 Assessment & Plan Assessment & Plan (1) ADD (attention deficit disorder): Code(s): F98.8 - Other specified behavioral and emotional disorders with onset usually occurring in childhood and adolescence Category: Medical Qualifiers: Attention deficit type: attention or concentration deficit Qualified Code(s): R41.840 - Attention and concentration deficit Plan: Patient has been on Strattera 25 mg and does report some improvement in her attention and focus though will like a higher dose for better attention focus 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 (2) Flushing: Code(s): R23.2 - Flushing Category: Medical Plan: Due to reports of flushing will check estrogen levels and thyroid stimulating hormone levels along with cortisol to eval for any abnormalities. Orders: Orders TSH reflex Free T4 Today E01.0 - Iodine-deficiency related diffuse (endemic) goiter Estrogen Today D50.9 - Iron deficiency anemia, unspecified, R23.2 - Flushing Complete Blood Count Auto Diff Today D50.9 - Iron deficiency anemia, unspe cified Cortisol Random Today D50.9 - Iron deficiency anemia, unspecified, R23.2 - Flushing Medications: New atomoxetine 40 mg PO DAILY 30 caps 2RF 30 days R41.840 - Attention and concentration deficit On Hold atomoxetine Hold Comment: Doctor's Order 25 mg PO DAILY 30 caps 1RF 30 days F98.8 - Other specified behavioral and emotional disorders with onset usually occurring in childhood and adolescence
--- OUTSIDE RECORDS SUMMARY | 2025-06-08 15:47 | XMS_ITS | Clinical Summary ---
Author Organization [facility] ity Address [address] [place] [address] Care Team Providers Care Raw Juice Weigher Name Role Phone Unavailable Primary Care Provider [...] Depression Screening 07/29/2024 COVID-19 Vaccine ( - 2024-2 6 season) 2025 Influenza Vaccine (#1) 2025 RSV [...]
== END 2025-06-08 15:51 | disposition home or self-care (01) ==
LOC: HO.HMCH 14:08
PROVIDERS: PCP Physician Assistant; Visit Provider Physician Assistant
DX: R41.840 Attention and concentration deficit (principal); R23.2 Flushing

== ENCOUNTER 2025-06-17 06:09 | Outpatient (REF) | payer OTHER, SELFPAY ==
[2025-06-17 06:24] LABS: MANUAL DIFF FLAG NO
[2025-06-17 07:22] LABS: Hematocrit 34.8 % (37.0-47.0); Hemoglobin 11.1 g/dl (12.0-16.0); Imm Gran Abs Auto 0.04 X10*3/uL (0.00-0.03); Imm Gran Pct Auto 0.4 % (0.0-0.4); Lymphocytes Absolute Auto 2.1 X10*3/uL (1.2-4.9); Mean Corpuscular HGB Conc 31.9 g/dl (31.0-35.0); Mean Corpuscular Hemoglobin 26.1 pg (27.0-33.0); Mean Corpuscular Volume 81.9 fL (80.0-98.0); NRBC Abs Auto 0.000 X10*3/uL (0.0-0.012); NRBC Pct Auto 0.0 /100WBC (0.0-0.2); Platelet Count 316 X10*3/uL (160-400); Red Blood Count 4.25 X10*6/uL (4.20-5.50); White Blood Count 9.4 X10*3/uL (4.8-10.8)
[2025-06-17 07:52] LABS: NT Pro B Type Natriuretic Pept 108.4 pg/mL (<300)
[2025-06-17 07:54] LABS: Alanine Aminotransferase 17 U/L (0-31); Albumin Level 4.2 g/dL (3.5-5.0); Alkaline Phosphatase 73 U/L (39-117); Anion Gap 12 (12-20); Aspartate Amino Transferase 19 U/L (5-31); Blood Urea Nitrogen 17 mg/dL (9-16); Calcium 9.0 mg/dL (8.4-10.2); Carbon Dioxide 21 mmol/L (22-29); Chloride 109 mmol/L (96-108); Estimated Glomerular Filt Rate > 60; Iron 40 mcg/dL (30-160); Percent Iron Saturation 17 % (15-50); Potassium 4.0 mmol/L (3.3-5.1); Sodium 138 mmol/L (135-145); Total Iron Binding Capacity 239 mcg/dL (228-428); Total Protein 7.4 g/dL (6.5-8.0); Unsaturated Iron Binding 199 ug/dL
== END 2025-06-17 06:10 | disposition home or self-care (01) ==
LOC: HO.LAB 06:09
PROVIDERS: Internal Medicine; PCP Physician Assistant; Visit Provider Physician Assistant
DX: E01.0 Iodine-deficiency related diffuse (endemic) goiter (principal); D50.8 Other iron deficiency anemias; R73.01 Impaired fasting glucose; R06.02 Shortness of breath; R23.2 Flushing
CPT/HCPCS: 36415; 80048; 80053; 82533; 82672; 83036; 83540; 83880; 84443; 85025